=== PATIENT | female | born 1930 | race Caucasian/White ===

== ENCOUNTER 2016-10-12 10:51 | Emergency (ER) | payer MEDICARE ==
--- NOTE | 2016-10-12 12:44 | UC ---
Respiratory Complaint HPI - HPI Summary HPI Summary: Cough, chest congestion, sinus pressure, poor appetite, & dyspnea x2 days. Has significant cardiac history. Concern for bronchitis and or pneumonia per her daughter. Lives alone at home and not taking meds for multiple day [ End ] - History of Current Complaint Chief Complaint: UCGeneralIllness Stated Complaint: COUGH,SHAKY,SORE RIBS Time Seen by Provider: 10/12/16 12:25 Hx Obtained From: Patient, Family/Cotton Breeder ?: No Onset/Duration: Gradual Onset Timing: Constant Severity Initially: Moderate Severity Currently: Moderate Character: Cough: Nonproductive Associated Signs And Symptoms: Positive: URI, Nasal Congestion, Sinus Discomfort - Risk Factors Pulmonary Embolism Risk Factors: Negative Cardiac Risk Factors: Hypertension - Allergies/Home Medications Allergies/Adverse Reactions: Allergies Allergy/AdvReac Type Severity Reaction Status Date / Time No Known Allergies Allergy Verified 10/12/16 11:54 Home Medications: Home Medications Amiodarone TAB* [Cordarone TAB*] 200 mg PO DAILY 10/12/16 [History Confirmed 07/30] Atorvastatin* [Lipitor*] 40 mg PO DAILY 10/12/16 [History Confirmed 10/12/16] Calcium Carbonate [Calcium] 500 mg PO 10/12/16 [History] Digoxin TAB* [Lanoxin TAB*] 0.125 mg PO EVERY OTHER DAY 10/12/16 [History Confirmed 10/12/16] Famotidine TAB* [Pepcid 20 MG TAB*] 20 mg PO DAILY 10/12/16 [History Confirmed 10/12/16] Ferrous Gluconate TAB* [Fergon TAB*] 325 mg PO DAILY 10/12/16 [History Confirmed 10/12/16] Furosemide TAB* [Lasix TAB*] 40 mg PO DAILY 10/12/16 [History Confirmed 10/12/16 ] Levothyroxine TAB* [Synthroid TAB*] 25 mcg PO DAILY 10/12/16 [History Confirmed 10/12/16] Metoprolol Succinate XL TAB* [Toprol XL TAB*] 100 mg PO DAILY 10/12/16 [History Confirmed 10/12/16] Potassium Chlor TAB* [Klor Con ER TAB*] 20 meq PO DAILY 10/12/16 [History Confirmed 10/12/16] PMH/Surg Hx/FS Hx/Imm Hx Previously Healthy: Yes Endocrine History Of: Reports: Thyroid Disease Cardiovascular History Of: Reports: Cardiac Disorders - [place], surgery, cardioversion, Hypertension, Myocardial Infarction Respiratory History Of: Denies: COPD GI/ History Of: Reports: Gastroesophageal Reflux Neurological History Of: Denies: TIA Psychological History Of: Denies: Anxiety Cancer History Of: Denies: Lung Cancer - Surgical History Surgical History: Yes Surgery Procedure, Year, and Place: cardiac - Family History Known Family History: Positive: None - Social History Occupation: Retired Lives: Alone Alcohol Use: None Substance Use Type: None, Other Smoking Status (MU): Former Smoker Type: Cigarettes When Did the Patient Quit Smoking/Using Tobacco: 1992 Review of Systems Constitutional: Chills, Fatigue Skin: Negative Eyes: Negative ENT: Negative Respiratory: Shortness Of Breath, Cough Cardiovascular: Negative Gastrointestinal: Negative Genitourinary: Negative Motor: Negative Neurovascular: Negative Musculoskeletal: Negative Neurological: Negative Psychological: Negative All Other Systems Reviewed And Are Negative: Yes Physical Exam Triage Information Reviewed: Yes Appearance: Well-Appearing, No Pain Distress, Well-Nourished Vital Signs: Initial Vital Signs Temp 99.5 F 10/12/16 11:54 Pulse 61 10/12/16 11:54 Resp 16 10/12/16 11:54 BP 192/70 10/12/16 11:54 Pulse Ox 96 10/12/16 11:54 Vital Signs Reviewed: Yes Eye Exam: Normal ENT Exam: Normal Dental Exam: Normal Neck exam: Normal Neck: Positive: 1 Respiratory Exam: Normal Respiratory: Positive: Chest non-tender, No respiratory distress, No accessory muscle use, Rhonchi - b/l le Cardiovascular Exam: Normal Abdominal Exam: Normal Musculoskeletal Exam: Normal Neurological Exam: Normal Psychological Exam: Normal Skin Exam: Normal UC Diagnostic Evaluation - Laboratory O2 Sat by Pulse Oximetry: 96 Respiratory Course/Dx - Course Course Of Treatment: 86 year old female with significant cardiac history with 4 days of worsening fatigue, cough shortness of breath. Concern for respiratory compromise / pneumonia and will advise to go to ED for labs and further work up . Patient and daughter agree, they decline ambulance at this time . - Differential Dx/Diagnosis Differential Diagnosis/HQI/PQRI: Bronchitis, CHF, Pulmonary Edema, Laryngitis, Lower Resp Infection Provider Diagnoses: Pneumonia - Physician Notification/Consults Discussed Patient Care With: Nixon ED : Jessica Conley at 1:12 pm Discharge - Discharge Plan Condition: Fair Disposition: AGAINST MEDICAL ADVICE Referrals: Wilbert Jones MD [Primary Care Provider] - 3 Days
[2016-10-12 13:22] VITALS: BP 226/93
== END 2016-10-12 13:25 | disposition left against medical advice (07) ==
LOC: UCCORT 10:51
DX: J18.9 Pneumonia, unspecified organism (principal); I21.3 ST elevation (STEMI) myocardial infarction of unspecified site; I10 Essential (primary) hypertension; Z87.891 Personal history of nicotine dependence
CPT/HCPCS: 99213; G0463

== ENCOUNTER 2018-03-04 17:00 | Inpatient (IN) | payer MEDICARE ==
[2018-03-04] MEDS ORDERED: diPHENhydraMINE IV* 50 MG/ML 1 ml VIAL (BENADRYL) IM ONE (17:49)
[2018-03-04 18:14] LABS: ABS Basophils 0 10^3/ul (0-0.2); ABS Eosinophils 0.1 10^3/ul (0-0.6); ABS Lymphocytes 0.5 10^3/ul (1.0-4.8); ABS Monocytes 0.6 10^3/ul (0-0.8); ABS Neutrophils 5.9 10^3/ul (1.5-7.7); ABS Nucleated RBC 0 10^3/ul; Eosinophil % 1.2 % (0-6); Hematocrit 46 % (35-47); Lymphocyte % 7.2 % (25-47); Mean Corpuscular HGB Conc 33 g/dl (31-36); Mean Corpuscular Hemoglobin 32 pg (27-31); Mean Corpuscular Volume 98 fL (80-97); Mean Platelet Volume 8.7 um3 (7.4-10.4); Nucleated Red Blood Cells % 0.2; Platelet Count 217 10^3/ul (150-450); Red Blood Count 4.65 10^6/ul (4.00-5.40); Red Cell Distribution Width 20 % (10.5-15); White Blood Count 7.2 10^3/ul (3.5-10.8)
[2018-03-04 18:22] LABS: INR 1.02 (0.77-1.02)
--- NOTE | 2018-03-04 18:29 | ED ---
Syncope/Near Syncope - HPI Summary HPI Summary: The patient is an 87 y/o F presenting to [facility] with a chief complaint of fall a few days. She suffered a large bruise to her left cheek, and her left leg is tender. She additionally has back pain and cuts/bruises on her hands from falling. The pain is not aggravated or alleviated by anything. Per EMS report, the pt had tried to jump off the balcony at her alf and was being hostile towards staff. She has hx of COPD. - History Of Current Complaint Chief Complaint: EDGeneral Time Seen by Provider: 03/04/18 17:31 Hx Obtained From: Patient Onset/Duration: Sudden Onset, Lasting Days, Still Present Timing: Days Aggravating Factor(s): Nothing Alleviating Factor(s): Nothing Associated Signs And Symptoms: Other - tenderness in left leg, cuts and brusies to hands, large bruise to left cheek - Allergies/Home Medications Allergies/Adverse Reactions: Allergies Allergy/AdvReac Type Severity Reaction Status Date / Time codeine Allergy Unknown Verified 03/04/18 17:16 Reaction Details oxycodone Allergy Unknown Verified 03/04/18 17:16 Reaction Details ranolazine [From Ranexa] Allergy Unknown Verified 03/04/18 17:17 Reaction Details PMH/Surg Hx/FS Hx/Imm Hx Endocrine/Hematology History: Reports: Hx Thyroid Disease Cardiovascular History: Reports: Hx Hypertension, Hx Myocardial Infarction, Hx Pacemaker/ICD Respiratory History: Denies: Hx Chronic Obstructive Pulmonary Disease (COPD), Hx Lung Cancer Neurological History: Denies: Hx Transient Ischemic Attacks (TIA) Psychiatric History: Denies: Hx Anxiety - Surgical History Surgery Procedure, Year, and Place: cardiac-ICD left side - Immunization History Immunizations Up to Date: Unable to Obtain/Confirm Infectious Disease History: No Infectious Disease History: Denies: Traveled Outside the [place] in Last 30 Days - Family History Known Family History: Negative: Cardiac Disease, Hypertension, Diabetes - Social History Alcohol Use: None Substance Use Type: Reports: None Smoking Status (MU): Former Smoker Type: Cigarettes Review of Systems Positive: Other - tenderness in lower left leg, back pain Positive: Bruising - to left side of face, Other - cuts and bruises on hands All Other Systems Reviewed And Are Negative: Yes Physical Exam - Summary Physical Exam Summary: Constitutional: Well-developed, Well-nourished, Alert. (-) Distressed Skin: Warm, Dry HENT: Normocephalic; Atraumatic Eyes: Conjunctiva normal Neck: Musculoskeletal ROM normal neck. (-) JVD, (-) Stridor, (-) Tracheal deviation Cardio: Rhythm regular, rate normal, Heart sounds normal; Intact distal pulses; The pedal pulses are 2+ and symmetric. Radial pulses are 2+ and symmetric. (-) Murmur Pulmonary/Chest wall: Effort normal. (-) Respiratory distress, (-) Wheezes, (-) Rales, (+) Crackles in lower left field Abd: Soft, (-) epigastric tenderness, (-) Distension, (-) Guarding, (-) Rebound Musculoskeletal: (-) Edema Lymph: (-) Cervical adenopathy Neuro: Alert, Oriented x3 Psych: Mood and affect Normal Triage Information Reviewed: Yes Vital Signs On Initial Exam: Initial Vitals Temp Pulse Resp BP Pulse Ox 97.8 F 76 20 118/73 98 03/04/18 17:02 03/04/18 17:02 03/04/18 17:02 03/04/18 17:02 03/04/18 17:02 Vital Signs Reviewed: Yes Diagnostics - Vital Signs Vital Signs Temp Pulse Resp BP Pulse Ox 03/04/18 17:02 97.8 F 76 20 118/73 98 - Laboratory Lab Results: Lab Results 03/04/18 Range/Units 18:01 WBC 7.2 (3.5-10.8) 10^3/ul RBC 4.65 (4.00-5.40) 10^6/ul Hgb 15.0 (12.0-16.0) g/dl Hct 46 (35-47) % MCV 98 H (80-97) fL MCH 32 H (27-31) pg MCHC 33 (31-36) g/dl RDW 20 H (10.5-15) % Plt Count 217 (150-450) 10^3/ul MPV 8.7 (7.4-10.4) um3 Neut % (Auto) 82.5 (38-83) % Lymph % (Auto) 7.2 L (25-47) % [place] % (Auto) 8.7 H (0-7) % Eos % (Auto) 1.2 (0-6) % Baso % (Auto) 0.4 (0-2) % Absolute Neuts (auto) 5.9 (1.5-7.7) 10^3/ul Absolute Lymphs (auto) 0.5 L (1.0-4.8) 10^3/ul Absolute Monos (auto) 0.6 (0-0.8) 10^3/ul Absolute Eos (auto) 0.1 (0-0.6) 10^3/ul Absolute Basos (auto) 0 (0-0.2) 10^3/ul Absolute Nucleated RBC 0 10^3/ul Nucleated RBC % 0.2 Result Diagrams: 03/04/18 18:01 03/04/18 18:01 Lab Statement: Any lab studies that have been ordered have been reviewed, and results considered in the medical decision making process. - Radiology CXR Xray Interpretation: Positive (See Comments) - Left lower lung field, obscured by pacemaker. Cant rule out consolidation or pleural effusion. ED physician has reviewed this report. Radiology Interpretation Completed By: Radiologist L Ankle XR Xray Interpretation: Positive (See Comments) - Calcaneal spurring. ED physician has reviewed this report. Radiology Interpretation Completed By: Radiologist L Foot XR Xray Interpretation: No Acute Changes - No acute findings. ED physician has reviewed this report. Radiology Interpretation Completed By: Radiologist - EKG 18:07 Cardiac Rate: Other Rate - Afib. 81 BPM EKG Rhythm: Atrial Fibrillation EKG Interpretation: LBBB. No STEMI. Course/Dx Course Of Treatment: The patient is an 87 y/o F presenting to [facility] with a chief complaint of fall a few days. She suffered a large bruise to her left cheek, and her left leg is tender. She additionally has back pain and cuts/ bruises on her hands from falling. The pain is not aggravated or alleviated by anything. Per EMS report, the pt had tried to jump off the balcony at her alf and was being hostile towards staff. She has hx of COPD. Upon exam , pt has crackles in the lower left lung field. In the ED course, the pt was administered Benadryl. EKG shows LBBB and Afib at 81 BPM. Bloodwork is shows troponin of 0.04 and hyperkalemia. CXR reveals pacemaker obstructing image, can' t RO consolidation or pleural effusion. L Ankle XR shows calcaneal spurring. L Foot XR is negative. [facility] STATES PT CANNOT RETURN TO FACILITY. Patient will be diagnosed with community acquired pneumonia, hypoxia, agitation , hyperkalemia, dehydration, homelessness. Patient will be a sign-out to Dr. Wilder at shift change pending UA, Brain CT, Maxillofacial XR, Spine Cervical CT and awaiting disposition. Nursing reports pt is hypoxic; she has focal lung sounds. - Diagnoses Provider Diagnoses: Community acquired pneumonia, Hypoxia, Agitation, Hyperkalemia, Dehydration, Homelessness Discharge - Sign-Out/Discharge Documenting (check all that apply): Sign-Out Patient - Patient will be a sign- out to Dr. Wilder at shift change pending imaging results and dispo. Signing out patient TO: Kyle Wilder - Discharge Plan Referrals: Wilbert Jones MD [Primary Care Provider] - - Attestation Statements Document Initiated by Scribe: Yes Documenting Scribe: Nadege Thompson Provider For Whom Scribe is Documenting (Include Credential): Manoj Badillo MD Scribe Attestation: Nadege Conley, scribed for Manoj Badillo MD on 03/04/18 at 1906. Scribe Documentation Reviewed: Yes Provider Attestation: The documentation as recorded by the Nadege mccracken accurately reflects the service I personally performed and the decisions made by me, Manoj Badillo MD
[2018-03-04] MEDS ORDERED: cefTRIAXone(*) 1 GM in NS 0.9% 50 ML* 50 ML IVPB ONE (18:58)
[2018-03-04] MEDS ORDERED: Azithromycin IV(*) 500 MG in NS 0.9% 250 ML* 250 ML IVPB ONE (18:58)
[2018-03-04] MEDS ORDERED: NS 0.9% 500 ML* 500 ML IV ONE (18:58)
--- NOTE | 2018-03-04 19:11 | RAD ---
EXAM: CT Head Without Intravenous Contrast CLINICAL HISTORY: 87 years old, female; Injury or trauma; Injury Possible fall; Initial encounter; Blunt trauma (contusions or hematomas); Injury details: Left forehead region; Additional info: AMS, head injury. Brought in with ems and police because of aggressive behavior toward the staff in [facility], patient attempted to jump out of the window. TECHNIQUE: Axial computed tomography images of the head/brain without intravenous contrast. All CT scans at this facility use at least one of these dose optimization techniques: automated exposure control; mA and/or kV adjustment per patient size (includes targeted exams where dose is matched to clinical indication); or iterative reconstruction. COMPARISON: No relevant prior studies available. FINDINGS: Brain: Nonspecific hypoattenuation of the periventricular and deep subcortical white matter, most likely secondary to chronic small vessel ischemic change. No intracranial hemorrhage or extra-axial fluid collection. No evidence of mass effect or midline shift. Poe-white matter differentiation is normal. Ventricles: Prominence of the ventricles and sulci, most likely attributed to parenchymal volume loss. Bones/joints: Unremarkable. No acute fracture. Soft tissues: Small left frontal scalp hematoma. Sinuses: Unremarkable as visualized. No acute sinusitis. Mastoid air cells: Unremarkable as visualized. No mastoid effusion. IMPRESSION: No acute intracranial pathology.
--- NOTE | 2018-03-04 19:13 | RAD ---
EXAM: CT Cervical Spine Without Intravenous Contrast CLINICAL HISTORY: 87 years old, female; Injury or trauma; Injury Possible fall; Initial encounter; Abrasion; Additional info: AMS, head injury. Brought in with ems and police because of aggressive behavior toward the staff in [place], patient attempted to jump out of the window. TECHNIQUE: Axial computed tomography images of the cervical spine without intravenous contrast. All CT scans at this facility use at least one of these dose optimization techniques: automated exposure control; mA and/or kV adjustment per patient size (includes targeted exams where dose is matched to clinical indication); or iterative reconstruction. Coronal and sagittal reformatted images were created and reviewed. COMPARISON: No relevant prior studies available. FINDINGS: Vertebrae: Vertebral body heights are maintained. No locked or perched facets. Multilevel facet arthropathy. No acute fracture. The dens is intact. Atlantoaxial intervals are normal. Discs/spinal canal/neural foramina: Multilevel degenerative changes with intervertebral disc height loss and osteophyte formation. No spinal canal stenosis. Soft tissues: Unremarkable. Lung apices: Unremarkable as visualized. IMPRESSION: No acute cervical spine fracture.
--- NOTE | 2018-03-04 19:17 | RAD ---
EXAM: CT Maxillofacial Without Intravenous Contrast CLINICAL HISTORY: 87 years old, female; Injury or trauma; Injury Possible fall. ; Initial encounter; Abrasion; Cheek bone; Left; Additional info: Facial injuruy sp fall. Brought in with ems and police because of aggressive behavior toward the staff in alf, patient attempted to jump out of the window. TECHNIQUE: Axial computed tomography images of the face without intravenous contrast. All CT scans at this facility use at least one of these dose optimization techniques: automated exposure control; mA and/or kV adjustment per patient size (includes targeted exams where dose is matched to clinical indication); or iterative reconstruction. Coronal and sagittal reformatted images were created and reviewed. COMPARISON: No relevant prior studies available. FINDINGS: Bones/joints: No acute fracture. Soft tissues: Unremarkable. Orbits: Unremarkable. Sinuses: Mild mucosal thickening in the left maxillary sinus. No air-fluid levels. IMPRESSION: No acute fracture.
[2018-03-04] MEDS ORDERED: Haloperidol INJ IV/IM* 5 MG/ML AMP IV PRN (22:30)
[2018-03-04] MEDS ORDERED: Acetaminophen TAB* 325 MG PO PRN (22:30)
[2018-03-04] MEDS ORDERED: Ondansetron ODT TAB* 4 MG PO PRN (22:30)
[2018-03-04] MEDS ORDERED: Albuterol 2.5 MG/3 ML NEB.SOL* (0.083%) INH PRN (22:30)
[2018-03-04] MEDS ORDERED: Furosemide IV* 10 MG/ML 10 ML VIAL (100 MG) IV ONE (22:30)
--- NOTE | 2018-03-04 22:33 | HP ---
H&P (Free Text) History and Physical: PCP: Bryan Jones MD Date/Time: 03/04/2018 CC: confusion/aggression HPI: Mrs Braxton is an 87YO female HX CAD/CO/3vCABG, PAOD, HTN, HLD, hypothyroidism, LUE DVT & PE who was discharged from [facility] earlier today to [place] for inpatient rehab. She had been admitted to [facility] for 2 weeks with diagnoses of UTI, L foot cellulitis, & CHF. She reportedly initially did well upon arrival. However, after a few hours she suddenly began agitated and violent, started picking up and throwing chairs, punching other residents, etc. As such, EMS was called and she has been refused re-admission. Her daughters are present and stated they did not feel she was acting right prior to discharge that she was confused, but were assured she was ready. Currently, Mrs Braxton is lying in bed calm and without distress. She does not recall the earlier events. She has had similar episodes associated with UTI or other infections. Of note, she has a L forehead hematoma and L facial ecchymosis 2nd to a fall she sustained while at [facility]. PMedHx CAD/CO/3vCABG PAOD HTN HLD chronic BLE edema & erythema w/ intermittent weeping LUE DVT & PE hypothyroidism PSurgHx B carotid endarterectomies stent to RLE 3vCABG AICD placement appendectomy OU cataract extractions SocHx: quit smoking 1992 w/ >69 PYHX, no alcohol or recreational drugs; prior to admission to [facility] 2 weeks ago lived alone at home, very supportive family , does not drive; DNR/I code status FamHx: positive for CAD, HTN, HLD ROS: as above, otherwise reviewed and all were negative vitals: reviewed Constitutional: NAD, normally developed, frail, thin elderly white female HEENM: 3cm L forehead hematoma & L facial ecchymosis; sclera/conjunctiva: anicteric; hearing: clinically mildly decreased; oropharynx: clear, mucosa tacky Neck: soft tissue: non-tender; thyroid: normal Pulmonary: coarse upper airways B, fair aeration, no accessory muscle use CV: RR/RR, normal S1S2, no carotid bruit, moderate jugular venous distention, trace B DP/PT, 1+ BLE edema Abdominal: soft, non-distended, non-tender, no rebound/guarding/rigidity, normoactive bowel sounds, no hepatosplenomegaly or masses, no costovertebral angle tenderness Musculoskeletal: general: grossly intact, non-tender Integumental: BLE with chronic ischemic redness & skin atrophy Psychiatric orientation: AA&O to person only affect: calm mood: cooperative eye contact: poor content: unreliable memory: poor responses: mildly slowed insight: poor Testing: reviewed Impression: 87F presenting with confusion and aggression with findings consistent with 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 DIAGNOSIS & PLAN 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 : furosemide diuresis : daily weights : strict I&Os : obtain records from [facility] : supplemental oxygen : supportive care AMS/confusion & aggression : possibly related to transient hypoxia vs dementia (?vascular) vs occult infection : blood & urine CXs : given azithromycin & ceftriaxone in ED, hold further ABX for now : trend WBC & temperature curves Secondary CAD/CO/3vCABG : review meds once reconciled PAOD : review meds once reconciled HTN : review meds once reconciled HLD : review meds once reconciled chronic BLE edema & erythema w/ intermittent weeping : review meds once reconciled LUE DVT & PE : review meds once reconciled hypothyroidism : review meds once reconciled Admission Rational: inpatient for AoC HF not anticipated to be adequately resolved within 48h to allow for discharge DVTp: SCDs & heparin SQ Code Status: DNR/I HCP: mariel
[2018-03-05] MEDS: Omeprazole CAP* 20 MG PO SCH (06:01)
[2018-03-05 06:46] LABS: EGFR Non-African American 28.4 (>60)
--- NOTE | 2018-03-05 07:25 | RAD ---
INDICATION: Altered mental status. COMPARISON: Comparison is made with prior chest x-rays from February 16, [address] of the chest from February 18, 2018. TECHNIQUE: A portable view of the chest was obtained. FINDINGS: The patient is status post sternotomy. The heart is moderately enlarged and unchanged. There is a multilead transvenous pacemaker present. There is a 1 cm pulmonary nodule which projects over the right lung. This correlates with the nodule noted on the recent CT of the chest in the superior segment of the right lower lobe. There is mild prominence of the interstitial markings with more focal infiltrate present at the left lung base. IMPRESSION: 1. NEW SMALL LEFT BASILAR INFILTRATE. 2. RIGHT LUNG PULMONARY NODULE PREVIOUSLY DESCRIBED DESCRIBED ON THE CT OF THE CHEST FROM FEBRUARY 2018. THIS MAY BE SECONDARY TO INFLAMMATORY, INFECTIOUS OR NEOPLASTIC CAUSES. R2
--- NOTE | 2018-03-05 07:27 | RAD ---
INDICATION: Left ankle injury. TECHNIQUE: 3 views of the left ankle were obtained. FINDINGS: There is diffuse soft tissue swelling. The bones appear osteopenic. No fracture is seen. There are prominent vascular calcifications present. IMPRESSION: SOFT TISSUE SWELLING, NO FRACTURE IS SEEN. IF THE PATIENT'S SYMPTOMS PERSIST RECOMMEND FOLLOW-UP IMAGING. R0
--- NOTE | 2018-03-05 07:29 | RAD ---
INDICATION: Left foot injury. TECHNIQUE: 3 views of the left foot were obtained. FINDINGS: There is diffuse soft tissue swelling. The bones appear osteopenic. No fracture is seen. Joint spaces appear maintained. IMPRESSION: NO EVIDENCE FOR FRACTURE, IF THE PATIENT'S SYMPTOMS PERSIST RECOMMEND FOLLOW-UP IMAGING. R0
--- NOTE | 2018-03-05 07:31 | RAD ---
HISTORY: FALL PAIN COMPARISONS: None VIEWS: 3 , Frontal and lateral views of the left foreleg FINDINGS: BONE DENSITY: There is diffuse osteopenia. BONES: There is no displaced fracture. JOINTS: There is no arthropathy. ALIGNMENT: There is no dislocation. SOFT TISSUES: There is peripheral arterial calcification. OTHER FINDINGS: None. IMPRESSION: OSTEOPENIA. PERIPHERAL ARTERIAL DISEASE. NO ACUTE OSSEOUS INJURY. IF SYMPTOMS PERSIST, RECOMMEND REPEAT IMAGING. R1
--- NOTE | 2018-03-05 07:53 | PN ---
Subjective Date of Service: 03/05/18 Interval History: Patient is very agitated, confused yelling and hitting staff. She threw her walker multiple times at staff. She is ambulating in the hallways with her walker with a fairly steady gait and will not follow staff to redirect her - she becomes very agitated with any suggestions. She was given Haldol this morning with some success after she tried to "choke an aide" and was throwing her walker. She calmed down a little this afternoon and at times has been able to be redirected at times. Staff has been walking her in the hallways frequently. She continues to refuse treatments such as vital signs or medications. I discussed the patients care and treatment plan with her daughter who is the HCP. She confirms that her mother is a DNR/DNI. The daughter understands that she a refusing treatment and medications. She reports that she has acted like this prior in the setting of acute illness specifically UTI's. I explained the staff has not been able to obtain a urine sample d/t noncompliance and delirium. The plan will be to continues IV abx and give IM and PO, continue to offer medications, try to obtain urinalysis if we can gather a clean cath but will not try to obtain sample by straight cath as this will be distressing to the patient and if she refuses it is ok. The daughter wants treatment for potential infection if she will allow but understands that she has been declining over the past year and has had multiple hospitalizations - overall goal is for her comfort at this stage in her life. The patients lactic is also elevated which the daughter understands that her mother will not allow for IVFs or IV at this time. Pt would not allow me to assess her with an exam today. Objective Active Medications: Acetaminophen (Tylenol Tab*) 650 mg PO Q6H PRN PRN Reason: FEVER/PAIN Albuterol (Ventolin 2.5 Mg/3 Ml Neb.Aliyah*) 2.5 mg INH Q2H PRN PRN Reason: SOB/WHEEZING Docusate Sodium (Colace Cap*) 200 mg PO BID LIZZ Furosemide (Lasix Iv*) 20 mg IV 0800,1200 LIZZ Guaifenesin (Mucinex*) 1,200 mg PO BID LIZZ Haloperidol Lactate (Haldol Inj Iv/Im*) 2.5 mg IV ONCE PRN PRN Reason: AGITATION Melatonin (Melatonin) 3 mg PO BEDTIME PRN; Protocol PRN Reason: Sleep Omeprazole (Prilosec Cap*) 20 mg PO DAILY@0600 LIZZ Last Admin: 03/05/18 06:01 Dose: 20 mg Ondansetron HCl (Zofran Odt Tab*) 4 mg PO Q6H PRN PRN Reason: n/v Oxygen Devices in Use Now: None Appearance: alert agitated confused Eyes: No Scleral Icterus, PERRLA Skin: - Neurological: - - alert Nutrition: Taking PO's Result Diagrams: 03/04/18 18:01 03/05/18 05:52 Additional Lab and Data: Lab Results 03/04/18 Range/Units 18:01 WBC 7.2 (3.5-10.8) 10^3/ul RBC 4.65 (4.00-5.40) 10^6/ul Hgb 15.0 (12.0-16.0) g/dl Hct 46 (35-47) % MCV 98 H (80-97) fL MCH 32 H (27-31) pg MCHC 33 (31-36) g/dl RDW 20 H (10.5-15) % Plt Count 217 (150-450) 10^3/ul MPV 8.7 (7.4-10.4) um3 Neut % (Auto) 82.5 (38-83) % Lymph % (Auto) 7.2 L (25-47) % Hardy % (Auto) 8.7 H (0-7) % Eos % (Auto) 1.2 (0-6) % Baso % (Auto) 0.4 (0-2) % Absolute Neuts (auto) 5.9 (1.5-7.7) 10^3/ul Absolute Lymphs (auto) 0.5 L (1.0-4.8) 10^3/ul Absolute Monos (auto) 0.6 (0-0.8) 10^3/ul Absolute Eos (auto) 0.1 (0-0.6) 10^3/ul Absolute Basos (auto) 0 (0-0.2) 10^3/ul Absolute Nucleated RBC 0 10^3/ul Nucleated RBC % 0.2 Microbiology and Other Data: Microbiology 03/05/18 00:18 Nasal Screen MRSA (PCR) - Final Nasal Mrsa Not Detected Assess/Plan/Problems-Billing Assessment: 87 yo female with a PMH of dementia, CAD/[place]/3vCABG, HTN, HLD, hypothyroidism, LUE DVT & PE, PAOD, chronic BLE edema & erythema with intermittent weeping who presented to [facility] on 03/04 after she was discharge from [facility] for 2 weeks with UTI, L foot cellulitis & CHF to [place] where she became aggressive and agitated throwing chairs, punching residents. 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 Possible PNA ? small infiltrate noted on chest xray - per daughter has been coughing - unable to obtain urinalysis - very aggressive and agitated - was given one time dose Haldol this morning, Geodon this afternoon with some success. -Start Seroquel 12.5 mg BID - continue IV abx (2) Acute on chronic diastolic CHF (congestive heart failure) Comment: - Possible mild CHF but appears to be oxygenating well on RA and does not appear to be fluid overloaded. BNP > 3000 on admission - Switch to lasix 20 mg daily (home dose is 40 mg po but most likely wont take po) (3) Acute renal failure Comment: - Do not know pts baseline, per daughter has renal disease at baseline. awaiting records from [place] (4) Hx of coronary artery disease Comment: - elevated troponin - suspect demand ischemia - per daughter her hr manager's recommend medical management only - continue BB (5) History of deep venous thrombosis or pulmonary embolus Comment: do not know what her hx is without records? trying to obtain med list. (6) PVD (peripheral vascular disease) Comment: - 2 stents placed in right leg in December at [facility] - Do not feel that we have the right medication list ?? I have asked the nursing staff to obtain records from [place] or [facility] (7) DNR (do not resuscitate) (8) DVT prophylaxis Status and Disposition: inpatient.
[2018-03-05] MEDS ORDERED: Furosemide IV* 10 MG/ML 10 ML VIAL (100 MG) IV SCH (08:00)
[2018-03-05] MEDS ORDERED: Haloperidol INJ IV/IM* 5 MG/ML AMP IM ONE (08:40)
[2018-03-05] MEDS ORDERED: Amiodarone TAB* 200 MG PO SCH (09:00)
[2018-03-05] MEDS ORDERED: Furosemide IV* 10 MG/ML 2 ML VIAL (20 MG) IV SCH (12:00)
[2018-03-05] MEDS ORDERED: QUEtiapine TAB* 25 MG PO ONE (12:01)
[2018-03-05] MEDS ORDERED: Ziprasidone IM INJ* 20 MG/ML VIAL IM ONE (12:02)
[2018-03-05] MEDS: Digoxin TAB* 0.125 MG PO SCH (12:40)
[2018-03-05] MEDS: Docusate CAP* 100 MG PO SCH ×2 (12:40→19:43)
[2018-03-05] MEDS: Atorvastatin* 40 MG TAB PO SCH (12:40)
[2018-03-05] MEDS: Famotidine TAB* 20 MG PO SCH (12:40)
[2018-03-05] MEDS: guaiFENesin ER TAB 600 MG PO SCH ×2 (12:41→19:43)
[2018-03-05] MEDS: Levothyroxine TAB* 25 MCG TAB PO SCH (12:41)
[2018-03-05] MEDS: Ferrous Gluconate TAB* 324 MG TAB PO SCH (12:41)
[2018-03-05] MEDS: cefTRIAXone VIAL(*) 1,000 MG VIAL IM SCH (19:03)
[2018-03-05] MEDS: Azithromycin TAB* 250 MG PO SCH (19:43)
[2018-03-05] MEDS: QUEtiapine TAB* 25 MG PO SCH (19:43)
[2018-03-05] MEDS: Haloperidol INJ IV/IM* 5 MG/ML AMP IM PRN (19:58)
[2018-03-05] MEDS: Enoxaparin(*) 60 MG/0.6 ML SYR SUBCUT SCH (20:52)
[2018-03-06 01:09] LABS: Urine Appearance Clear; Urine Blood 1+ (Negative); Urine Color Yellow; Urine Ketones Negative (Negative); Urine Protein 1+(30 mg/dL) (Negative); Urine Red Blood Cell 2+(6-10/hpf) (Absent); Urine Specific Gravity 1.016 (1.010-1.030); Urine Urobilinogen Negative (Negative); Urine White Blood Cell 3+(>20/hpf) (Absent)
[2018-03-06] MEDS: Omeprazole CAP* 20 MG PO SCH (04:41)
[2018-03-06] MEDS ORDERED: Furosemide IV* 10 MG/ML 2 ML VIAL (20 MG) IV ONE (09:00)
[2018-03-06] MEDS ORDERED: Metoprolol Succinate XL TAB* 100 MG PO SCH (09:00)
[2018-03-06] MEDS ORDERED: Furosemide TAB* 40 MG PO SCH (09:00)
--- NOTE | 2018-03-06 09:47 | PN ---
Subjective Date of Service: 03/06/18 Interval History: Ms. Braxton remains very confused this morning, but she is more easily redirected than she has been previously and is less agitated. More cooperative with care, however, she continues to require a safety monitor. Family History: Unchanged from Admission Social History: Unchanged from Admission Past Medical History: Unchanged from Admission Objective Active Medications: Acetaminophen (Tylenol Tab*) 650 mg PO Q6H PRN PRN Reason: FEVER/PAIN Albuterol (Ventolin 2.5 Mg/3 Ml Neb.Aliyah*) 2.5 mg INH Q2H PRN PRN Reason: SOB/WHEEZING Atorvastatin Calcium (Lipitor*) 40 mg PO DAILY LIZZ Azithromycin (Zithromax Tab*) 250 mg PO DAILY [facility] Ceftriaxone Sodium (Rocephin Vial(*)) 1,000 mg IM Q24H LIZZ Digoxin (Lanoxin Tab*) 0.125 mg PO EVERY OTHER DAY [facility] Docusate Sodium (Colace Cap*) 200 mg PO BID [facility] Enoxaparin Sodium (Lovenox(*)) 60 mg SUBCUT Q24H [facility] Famotidine (Pepcid Tab*) 20 mg PO DAILY [facility] Ferrous Gluconate (Fergon Tab*) 325 mg PO DAILY [facility] Guaifenesin (Mucinex*) 1,200 mg PO BID [facility] Haloperidol Lactate (Haldol Inj Iv/Im*) 2.5 mg IV ONCE PRN PRN Reason: AGITATION Haloperidol Lactate (Haldol Inj Iv/Im*) 2.5 mg IM Q6H PRN PRN Reason: AGITATION Levothyroxine Sodium (Synthroid Tab*) 25 mcg PO DAILY [facility] Melatonin (Melatonin) 3 mg PO BEDTIME PRN; Protocol PRN Reason: Sleep Metoprolol Succinate (Toprol Xl Tab*) 50 mg PO DAILY [facility] Omeprazole (Prilosec Cap*) 20 mg PO DAILY@0600 [facility] Ondansetron HCl (Zofran Odt Tab*) 4 mg PO Q6H PRN PRN Reason: n/v Quetiapine Fumarate (Seroquel Tab*) 12.5 mg PO BID [facility] Vital Signs - 8 hr 03/06/18 04:38 Temperature 98.0 F Pulse Rate 83 Respiratory 18 Rate Blood Pressure 132/63 (mmHg) O2 Sat by Pulse 100 Oximetry Oxygen Devices in Use Now: None Eyes: No Scleral Icterus, PERRLA Ears/Nose/Mouth/Throat: Mucous Membranes Moist Neck: NL Appearance and Movements; NL JVP Respiratory: Symmetrical Chest Expansion and Respiratory Effort, Clear to Auscultation Cardiovascular: NL Sounds; No Murmurs; No JVD, RRR, No Edema Abdominal: NL Sounds; No Tenderness; No Distention Extremities: No Edema Neurological: - - Alert but confused, easily agitated Lines/Tubes/Other Access: Clean, Dry and Intact Peripheral IV Nutrition: Taking PO's Result Diagrams: 03/04/18 18:01 03/05/18 05:52 Microbiology and Other Data: Assess/Plan/Problems-Billing Assessment: 87 yo female with a PMH of dementia, CAD/[place]/3vCABG, HTN, HLD, hypothyroidism, LUE DVT & PE, PAOD, chronic BLE edema & erythema with intermittent weeping who presented to [facility] on 03/04 after she was discharged from [facility] for 2 weeks with UTI, L foot cellulitis & CHF to [place] where she became aggressive and agitated throwing chairs, punching residents. 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 - Patient Problems (1) Acute on chronic diastolic CHF (congestive heart failure) Current Visit: Yes Status: Acute Code(s): I50.33 - ACUTE ON CHRONIC DIASTOLIC (CONGESTIVE) HEART FAILURE SNOMED Code(s): 621753973 Comment: - Possible mild CHF but appears to be oxygenating well on RA and does not appear to be fluid overloaded. BNP > 3000 on admission - Switch to lasix 20 mg daily (home dose is 40 mg po but most likely wont take po) - Likely cause of AMS (2) Confusion Current Visit: Yes Status: Acute Code(s): R41.0 - DISORIENTATION, UNSPECIFIED SNOMED Code(s): 411103920 Comment: - Suspect delirium 2/2 CHF with dementia at baseline - Improving aggression and agitation - Continue Seroquel 12.5 mg BID (3) UTI (urinary tract infection) Current Visit: Yes Status: Acute Comment: - UA from overnight + for WBC and leukocyte esterase - Continue ceftriaxone (4) Acute renal failure Current Visit: Yes Status: Acute Comment: - Do not know pts baseline, per daughter has renal disease at baseline - Unclear based on records from [place] (5) Hx of coronary artery disease Current Visit: Yes Status: Chronic Code(s): Z86.79 - PERSONAL HISTORY OF OTHER DISEASES OF THE CIRCULATORY SYSTEM SNOMED Code(s): 364369312 Comment: - Elevated troponin - suspect demand ischemia 2/2 CHF - Per daughter her winding lathe operator recommends medical management only - Continue BB (6) PVD (peripheral vascular disease) Current Visit: Yes Status: Acute Code(s): I73.9 - PERIPHERAL VASCULAR DISEASE, UNSPECIFIED SNOMED Code(s): 750201829 Comment: - 2 stents placed in right leg in December at [facility] (7) Hypothyroidism Current Visit: Yes Status: Acute Code(s): E03.9 - HYPOTHYROIDISM, UNSPECIFIED SNOMED Code(s): 71893288 Comment: - Continue home dose of Synthroid (8) History of deep venous thrombosis or pulmonary embolus Current Visit: Yes Status: Acute Code(s): IYN3507 - SNOMED Code(s): 228982677 Comment: - Per records from [place], hx of RUE DVT - Continue Lovenox (9) DVT prophylaxis Current Visit: Yes Status: Acute Code(s): HPB5003 - SNOMED Code(s): 161355355 Comment: - Lovenox (10) DNR (do not resuscitate) Current Visit: Yes Status: Acute Status and Disposition: Inpatient. Anticipate d/c to SNF when medically stable.
[2018-03-06] MEDS: Metoprolol Succinate XL TAB* 50 MG PO SCH (10:27)
[2018-03-06] MEDS: QUEtiapine TAB* 25 MG PO SCH ×2 (10:29→23:26)
[2018-03-06] MEDS: Levothyroxine TAB* 25 MCG TAB PO SCH (10:30)
[2018-03-06] MEDS: Atorvastatin* 40 MG TAB PO SCH (10:31)
[2018-03-06] MEDS: Docusate CAP* 100 MG PO SCH ×2 (10:33→23:26)
[2018-03-06] MEDS: Azithromycin TAB* 250 MG PO SCH (10:35)
[2018-03-06] MEDS: Famotidine TAB* 20 MG PO SCH (10:35)
[2018-03-06] MEDS: guaiFENesin ER TAB 600 MG PO SCH ×2 (10:36→23:26)
[2018-03-06] MEDS: Ferrous Gluconate TAB* 324 MG TAB PO SCH (10:37)
[2018-03-06] MEDS: cefTRIAXone VIAL(*) 1,000 MG VIAL IM SCH (19:25)
[2018-03-06] MEDS: Enoxaparin(*) 60 MG/0.6 ML SYR SUBCUT SCH (19:26)
[2018-03-07 05:12] LABS: ABS Basophils 0 10^3/ul (0-0.2); ABS Eosinophils 0.1 10^3/ul (0-0.6); ABS Lymphocytes 0.7 10^3/ul (1.0-4.8); ABS Monocytes 0.6 10^3/ul (0-0.8); ABS Nucleated RBC 0 10^3/ul; Eosinophil % 1.8 % (0-6); Hematocrit 44 % (35-47); Hemoglobin 14.3 g/dl (12.0-16.0); Lymphocyte % 10.5 % (25-47); Mean Corpuscular HGB Conc 32 g/dl (31-36); Mean Corpuscular Hemoglobin 32 pg (27-31); Mean Corpuscular Volume 99 fL (80-97); Mean Platelet Volume 8.5 um3 (7.4-10.4); Nucleated Red Blood Cells % 0.5; Platelet Count 217 10^3/ul (150-450); Red Cell Distribution Width 20 % (10.5-15); White Blood Count 6.3 10^3/ul (3.5-10.8)
[2018-03-07 05:28] LABS: EGFR Non-African American 22.9 (>60)
[2018-03-07] MEDS: Omeprazole CAP* 20 MG PO SCH (05:48)
--- NOTE | 2018-03-07 08:59 | PN ---
Subjective Date of Service: 03/07/18 Interval History: Ms. Thao remains confused, mentation about the same as yesterday per nursing. She is quite pleasant upon examination. Not able to provide any relevant subjective data. She is able to be redirected, but continues to be easily agitated per nursing staff. Continues to require a safety monitor. Family History: Unchanged from Admission Social History: Unchanged from Admission Past Medical History: Unchanged from Admission Objective Active Medications: Acetaminophen (Tylenol Tab*) 650 mg PO Q6H PRN Albuterol (Ventolin 2.5 Mg/3 Ml Neb.Aliyah*) 2.5 mg INH Q2H PRN Atorvastatin Calcium (Lipitor*) 40 mg PO DAILY LIZZ Azithromycin (Zithromax Tab*) 250 mg PO DAILY [facility] Ceftriaxone Sodium (Rocephin Vial(*)) 1,000 mg IVPB Q24H LIZZ Digoxin (Lanoxin Tab*) 0.125 mg PO EVERY OTHER DAY [facility] Docusate Sodium (Colace Cap*) 200 mg PO BID [facility] Enoxaparin Sodium (Lovenox(*)) 60 mg SUBCUT Q24H LIZZ Famotidine (Pepcid Tab*) 20 mg PO DAILY [facility] Ferrous Gluconate (Fergon Tab*) 325 mg PO DAILY [facility] Guaifenesin (Mucinex*) 1,200 mg PO BID [facility] Haloperidol Lactate (Haldol Inj Iv/Im*) 2.5 mg IV ONCE PRN Haloperidol Lactate (Haldol Inj Iv/Im*) 2.5 mg IM Q6H PRN Levothyroxine Sodium (Synthroid Tab*) 25 mcg PO DAILY [facility] Melatonin (Melatonin) 3 mg PO BEDTIME PRN; Protocol Metoprolol Succinate (Toprol Xl Tab*) 50 mg PO DAILY [facility] Omeprazole (Prilosec Cap*) 20 mg PO DAILY@0600 [facility] Ondansetron HCl (Zofran Odt Tab*) 4 mg PO Q6H PRN Quetiapine Fumarate (Seroquel Tab*) 12.5 mg PO BID [facility] Vital Signs - 8 hr 03/07/18 03/07/18 06:24 07:10 Temperature 98.1 F 97.7 F Pulse Rate 89 87 Respiratory 16 Rate Blood Pressure 140/88 136/75 (mmHg) O2 Sat by Pulse 94 100 Oximetry Oxygen Devices in Use Now: None Appearance: Elderly female laying in bed in NAD Eyes: No Scleral Icterus, PERRLA Ears/Nose/Mouth/Throat: Mucous Membranes Moist Neck: NL Appearance and Movements; NL JVP, Trachea Midline Respiratory: Symmetrical Chest Expansion and Respiratory Effort, Clear to Auscultation, - - Fine crackles to LL lobe, otherwise clear throughout Cardiovascular: NL Sounds; No Murmurs; No JVD, RRR, No Edema Abdominal: NL Sounds; No Tenderness; No Distention Extremities: No Edema Skin: - - Brown discoloration to BLE Neurological: - - Alert, oriented to self Lines/Tubes/Other Access: Clean, Dry and Intact Peripheral IV Nutrition: Taking PO's Result Diagrams: 03/07/18 04:57 03/07/18 04:57 Assess/Plan/Problems-Billing Assessment: 87 yo female with a PMH of dementia, 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 - Patient Problems (1) Acute on chronic diastolic CHF (congestive heart failure) Current Visit: Yes Status: Acute Priority: High Code(s): I50.33 - ACUTE ON CHRONIC DIASTOLIC (CONGESTIVE) HEART FAILURE SNOMED Code(s): 415388407 Comment: - Mild CHF but oxygenating well on RA and does not appear to be fluid overloaded - BNP > 3000 on admission, now down to 2500 - Switch to home dose of lasix (she is now taking PO meds) - Likely cause of AMS (2) Confusion Current Visit: Yes Status: Acute Priority: High Code(s): R41.0 - DISORIENTATION, UNSPECIFIED SNOMED Code(s): 685937944 Comment: - Suspect delirium 2/2 CHF with dementia at baseline - Improving aggression and agitation - Continue Seroquel 12.5 mg BID (3) UTI (urinary tract infection) Current Visit: Yes Status: Acute Priority: High Comment: - UA + for WBC and leukocyte esterase, culture shows no growth - Continue ceftriaxone (4) Acute renal failure Current Visit: Yes Status: Acute Priority: High Comment: - Do not know pts baseline, per daughter has renal disease at baseline - Unclear based on records from [place] (5) Hx of coronary artery disease Current Visit: Yes Status: Chronic Priority: High Code(s): Z86.79 - PERSONAL HISTORY OF OTHER DISEASES OF THE CIRCULATORY SYSTEM SNOMED Code(s): 363902133 Comment: - Elevated troponin - suspect demand ischemia 2/2 CHF - Per daughter her winder fixer recommends medical management only - Continue metoprolol (6) PVD (peripheral vascular disease) Current Visit: Yes Status: Acute Priority: High Code(s): I73.9 - PERIPHERAL VASCULAR DISEASE, UNSPECIFIED SNOMED Code(s): 939834750 Comment: - 2 stents placed in right leg in December at [facility] (7) Hypothyroidism Current Visit: Yes Status: Acute Priority: Medium Code(s): E03.9 - HYPOTHYROIDISM, UNSPECIFIED SNOMED Code(s): 78691002 Comment: - Continue home dose of Synthroid (8) History of deep venous thrombosis or pulmonary embolus Current Visit: Yes Status: Chronic Priority: Medium Code(s): VUZ5207 - SNOMED Code(s): 892952174 Comment: - Per records from [place], hx of RUE DVT - Continue Lovenox (9) DVT prophylaxis Current Visit: Yes Status: Acute Priority: High Code(s): PPY6370 - SNOMED Code(s): 522060071 Comment: - Lovenox (10) DNR (do not resuscitate) Current Visit: Yes Status: Chronic Status and Disposition: Inpatient. Anticipate d/c to [facility] when medically stable. Attending: Parmjit Bray
[2018-03-07] MEDS: Metoprolol Succinate XL TAB* 50 MG PO SCH (09:48)
[2018-03-07] MEDS: QUEtiapine TAB* 25 MG PO SCH ×2 (09:49→21:14)
[2018-03-07] MEDS: Azithromycin TAB* 250 MG PO SCH (09:49)
[2018-03-07] MEDS: Levothyroxine TAB* 25 MCG TAB PO SCH (09:51)
[2018-03-07] MEDS: guaiFENesin ER TAB 600 MG PO SCH ×2 (09:51→21:14)
[2018-03-07] MEDS: Digoxin TAB* 0.125 MG PO SCH (09:52)
[2018-03-07] MEDS: Docusate CAP* 100 MG PO SCH ×2 (09:54→21:14)
[2018-03-07] MEDS: Famotidine TAB* 20 MG PO SCH (09:54)
[2018-03-07] MEDS: Atorvastatin* 40 MG TAB PO SCH (09:54)
[2018-03-07] MEDS: Ferrous Gluconate TAB* 324 MG TAB PO SCH (09:54)
[2018-03-07] MEDS: Furosemide TAB* 40 MG PO SCH (12:03)
[2018-03-07] MEDS: cefTRIAXone* 1 GM in NS 0.9% 50 ML BAG IVPB SCH (17:46)
[2018-03-07] MEDS ORDERED: cefTRIAXone VIAL(*) 1,000 MG VIAL IVPB SCH (18:00)
[2018-03-07] MEDS: Enoxaparin(*) 60 MG/0.6 ML SYR SUBCUT SCH (21:21)
[2018-03-08] MEDS: Omeprazole CAP* 20 MG PO SCH (05:38)
[2018-03-08 07:14] LABS: EGFR Non-African American 24.8 (>60)
[2018-03-08] MEDS: Azithromycin TAB* 250 MG PO SCH (08:16)
[2018-03-08] MEDS: Metoprolol Succinate XL TAB* 50 MG PO SCH (08:16)
[2018-03-08] MEDS: QUEtiapine TAB* 25 MG PO SCH ×2 (08:16→21:03)
[2018-03-08] MEDS: guaiFENesin ER TAB 600 MG PO SCH ×2 (08:17→21:03)
[2018-03-08] MEDS: Furosemide TAB* 40 MG PO SCH (08:17)
[2018-03-08] MEDS: Ferrous Gluconate TAB* 324 MG TAB PO SCH (08:20)
[2018-03-08] MEDS: Famotidine TAB* 20 MG PO SCH (08:20)
[2018-03-08] MEDS: Docusate CAP* 100 MG PO SCH ×2 (08:20→21:03)
[2018-03-08] MEDS: Atorvastatin* 40 MG TAB PO SCH (08:20)
--- NOTE | 2018-03-08 12:54 | PN ---
Subjective Date of Service: 03/08/18 Interval History: Patient cannot give history. States she lives here. Denies SOB. LEFT foot painful. Family History: Unchanged from Admission Social History: Unchanged from Admission Past Medical History: Unchanged from Admission Objective Active Medications: Acetaminophen (Tylenol Tab*) 650 mg PO Q6H PRN PRN Reason: FEVER/PAIN Albuterol (Ventolin 2.5 Mg/3 Ml Neb.Aliyah*) 2.5 mg INH Q2H PRN PRN Reason: SOB/WHEEZING Atorvastatin Calcium (Lipitor*) 40 mg PO DAILY [facility] Last Admin: 03/08/18 08:20 Dose: 40 mg Digoxin (Lanoxin Tab*) 0.125 mg PO EVERY OTHER DAY [facility] Last Admin: 03/07/18 09:52 Dose: 0.125 mg Docusate Sodium (Colace Cap*) 200 mg PO BID [facility] Last Admin: 03/08/18 08:20 Dose: 200 mg Enoxaparin Sodium (Lovenox(*)) 60 mg SUBCUT BID [facility] Famotidine (Pepcid Tab*) 20 mg PO DAILY [facility] Last Admin: 03/08/18 08:20 Dose: 20 mg Ferrous Gluconate (Fergon Tab*) 325 mg PO DAILY [facility] Last Admin: 03/08/18 08:20 Dose: 324 mg Furosemide (Lasix Tab*) 40 mg PO DAILY [facility] Last Admin: 03/08/18 08:17 Dose: 40 mg Guaifenesin (Mucinex*) 1,200 mg PO BID [facility] Last Admin: 03/08/18 08:17 Dose: 1,200 mg Haloperidol Lactate (Haldol Inj Iv/Im*) 2.5 mg IM Q6H PRN PRN Reason: AGITATION Last Admin: 03/05/18 19:58 Dose: 2.5 mg Ceftriaxone Sodium 1 gm/ (Sodium Chloride) 50 mls @ 200 mls/hr IVPB Q24H [facility] Last Admin: 03/07/18 17:46 Dose: 200 mls/hr Levothyroxine Sodium (Synthroid Tab*) 25 mcg PO DAILY [facility] Last Admin: 03/07/18 09:51 Dose: 25 mcg Melatonin (Melatonin) 3 mg PO BEDTIME PRN; Protocol PRN Reason: Sleep Metoprolol Succinate (Toprol Xl Tab*) 50 mg PO DAILY [facility] Last Admin: 03/08/18 08:16 Dose: 50 mg Omeprazole (Prilosec Cap*) 20 mg PO DAILY@0600 [facility] Last Admin: 03/08/18 05:38 Dose: 20 mg Ondansetron HCl (Zofran Odt Tab*) 4 mg PO Q6H PRN PRN Reason: n/v Quetiapine Fumarate (Seroquel Tab*) 12.5 mg PO BID [facility] Last Admin: 03/08/18 08:16 Dose: 12.5 mg Vital Signs - 8 hr 03/08/18 03/08/18 07:46 08:00 Temperature 36.9 C Pulse Rate 81 Respiratory 16 16 Rate Blood Pressure 126/94 (mmHg) O2 Sat by Pulse 93 Oximetry Oxygen Devices in Use Now: None Appearance: no acute distress Ears/Nose/Mouth/Throat: Clear Oropharnyx Neck: No Thyroid Enlargement, Masses Respiratory: Clear to Auscultation, Clear to Percussion, - - rales LT base Cardiovascular: NL Sounds; No Murmurs; No JVD, No Edema, - - irregular Abdominal: NL Sounds; No Tenderness; No Distention Extremities: No Edema, - - dependent rubor Skin: - - ulceration LT 3-4-5th toes distally Neurological: - - cooperative Lines/Tubes/Other Access: Clean, Dry and Intact Peripheral IV Nutrition: Taking PO's Result Diagrams: 03/07/18 04:57 03/08/18 05:37 Additional Lab and Data: Laboratory Tests 03/07/18 03/07/18 03/08/18 04:57 04:57 05:37 Magnesium 2.8 H Troponin I 0.07 H* 0.11 H* B-Natriuretic Peptide 2574 H 03/08/18 08:04 Magnesium Troponin I 0.09 H* B-Natriuretic Peptide Microbiology and Other Data: Assess/Plan/Problems-Billing Assessment: 87 yo female with a PMH of dementia, CAD/[place]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 on 03/04 after she was discharged from [facility] for 2 weeks with UTI, L foot cellulitis & CHF to [place] where she became aggressive and agitated throwing chairs, punching residents. 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 - Patient Problems (1) Acute on chronic diastolic CHF (congestive heart failure) Current Visit: Yes Status: Acute Priority: High Code(s): I50.33 - ACUTE ON CHRONIC DIASTOLIC (CONGESTIVE) HEART FAILURE SNOMED Code(s): 746329339 Comment: - continue I/O monitoring - CHF now compensated - BNP > 3000 on admission, now down to 2500 - now on home dose of lasix (2) PVD (peripheral vascular disease) Current Visit: Yes Status: Acute Priority: High Code(s): I73.9 - PERIPHERAL VASCULAR DISEASE, UNSPECIFIED SNOMED Code(s): 924873253 Comment: - wounds on LT foot need wound care (local) (3) Confusion Current Visit: Yes Status: Acute Priority: High Code(s): R41.0 - DISORIENTATION, UNSPECIFIED SNOMED Code(s): 340027323 Comment: - Suspect delirium 2/2 CHF with dementia at baseline - Improved aggression and agitation - Continue Seroquel 12.5 mg BID (4) History of deep venous thrombosis or pulmonary embolus Current Visit: Yes Status: Chronic Priority: Medium Code(s): QLR8484 - SNOMED Code(s): 787469354 Comment: - also has A-fib - Per records from [facility] of RUE DVT - Continue Lovenox (5) Pneumonia Current Visit: Yes Status: Acute Priority: Medium Code(s): J18.9 - PNEUMONIA, UNSPECIFIED ORGANISM SNOMED Code(s): 790228888 Comment: - on Ceftriaxone for ?UTI - also will cover community acquired pneumonia - since improving, will not cover for HAP Status and Disposition: Inpatient. Was not offered bed at [facility] to return, will need other SNF placement
[2018-03-08] MEDS: Levothyroxine TAB* 25 MCG TAB PO SCH (14:08)
[2018-03-08] MEDS: cefTRIAXone* 1 GM in NS 0.9% 50 ML BAG IVPB SCH (17:33)
[2018-03-08] MEDS: Enoxaparin(*) 60 MG/0.6 ML SYR SUBCUT SCH (21:04)
[2018-03-08] MEDS: Melatonin 3 MG TAB PO PRN (23:16)
[2018-03-09] MEDS: Omeprazole CAP* 20 MG PO SCH (05:19)
[2018-03-09 07:52] LABS: EGFR Non-African American 24.2 (>60)
[2018-03-09] MEDS: Metoprolol Succinate XL TAB* 50 MG PO SCH (09:29)
[2018-03-09] MEDS: Famotidine TAB* 20 MG PO SCH (09:29)
[2018-03-09] MEDS: Atorvastatin* 40 MG TAB PO SCH (09:30)
[2018-03-09] MEDS: Docusate CAP* 100 MG PO SCH ×2 (09:32→19:23)
[2018-03-09] MEDS: Furosemide TAB* 40 MG PO SCH (09:32)
[2018-03-09] MEDS: Digoxin TAB* 0.125 MG PO SCH (09:33)
[2018-03-09] MEDS: Levothyroxine TAB* 25 MCG TAB PO SCH (09:34)
[2018-03-09] MEDS: QUEtiapine TAB* 25 MG PO SCH ×2 (09:35→19:23)
[2018-03-09] MEDS: guaiFENesin ER TAB 600 MG PO SCH ×2 (09:36→19:23)
[2018-03-09] MEDS: Ferrous Gluconate TAB* 324 MG TAB PO SCH (09:40)
--- NOTE | 2018-03-09 15:00 | PN ---
Subjective Date of Service: 03/09/18 Interval History: Still requiring a safety monitor, reportedly confused and refusing treatment this morning. In the afternoon with me, she is more calm and pleasant. She has no complaints and is eating soup and a sandwich, resting comfortably. Family History: Unchanged from Admission Social History: Unchanged from Admission Past Medical History: Unchanged from Admission Objective Active Medications: Acetaminophen (Tylenol Tab*) 650 mg PO Q6H PRN PRN Reason: FEVER/PAIN Albuterol (Ventolin 2.5 Mg/3 Ml Neb.Aliyah*) 2.5 mg INH Q2H PRN PRN Reason: SOB/WHEEZING Atorvastatin Calcium (Lipitor*) 40 mg PO DAILY REPLACED BY [facility] Last Admin: 03/09/18 09:30 Dose: 40 mg Digoxin (Lanoxin Tab*) 0.125 mg PO EVERY OTHER DAY REPLACED BY [facility] Last Admin: 03/09/18 09:33 Dose: 0.125 mg Docusate Sodium (Colace Cap*) 200 mg PO BID REPLACED BY [facility] Last Admin: 03/09/18 09:32 Dose: 200 mg Enoxaparin Sodium (Lovenox(*)) 60 mg SUBCUT Q24H REPLACED BY [facility] Last Admin: 03/08/18 21:04 Dose: 60 mg Famotidine (Pepcid Tab*) 20 mg PO DAILY REPLACED BY [facility] Last Admin: 03/09/18 09:29 Dose: 20 mg Ferrous Gluconate (Fergon Tab*) 325 mg PO DAILY REPLACED BY [facility] Last Admin: 03/09/18 09:40 Dose: 324 mg Furosemide (Lasix Tab*) 40 mg PO DAILY REPLACED BY [facility] Last Admin: 03/09/18 09:32 Dose: 40 mg Guaifenesin (Mucinex*) 1,200 mg PO BID REPLACED BY [facility] Last Admin: 03/09/18 09:36 Dose: 1,200 mg Haloperidol Lactate (Haldol Inj Iv/Im*) 2.5 mg IM Q6H PRN PRN Reason: AGITATION Last Admin: 03/05/18 19:58 Dose: 2.5 mg Ceftriaxone Sodium 1 gm/ (Sodium Chloride) 50 mls @ 200 mls/hr IVPB Q24H REPLACED BY [facility] Last Admin: 03/08/18 17:33 Dose: 200 mls/hr Levothyroxine Sodium (Synthroid Tab*) 25 mcg PO DAILY REPLACED BY [facility] Last Admin: 03/09/18 09:34 Dose: 25 mcg Melatonin (Melatonin) 3 mg PO BEDTIME PRN; Protocol PRN Reason: Sleep Last Admin: 03/08/18 23:16 Dose: 3 mg Metoprolol Succinate (Toprol Xl Tab*) 50 mg PO DAILY REPLACED BY [facility] Last Admin: 03/09/18 09:29 Dose: 50 mg Omeprazole (Prilosec Cap*) 20 mg PO DAILY@0600 REPLACED BY [facility] Last Admin: 03/09/18 05:19 Dose: 20 mg Ondansetron HCl (Zofran Odt Tab*) 4 mg PO Q6H PRN PRN Reason: n/v Quetiapine Fumarate (Seroquel Tab*) 12.5 mg PO BID REPLACED BY [facility] Last Admin: 03/09/18 09:35 Dose: 12.5 mg Vital Signs - 8 hr 03/09/18 03/09/18 03/09/18 08:00 08:22 09:33 Temperature 98.0 F Pulse Rate 90 90 Respiratory 16 18 Rate Blood Pressure 132/85 (mmHg) O2 Sat by Pulse 98 Oximetry 03/09/18 03/09/18 11:13 11:15 Temperature 98.1 F 98.1 F Pulse Rate 95 95 Respiratory 18 18 Rate Blood Pressure 141/76 141/76 (mmHg) O2 Sat by Pulse 97 97 Oximetry Oxygen Devices in Use Now: None Appearance: alert, oriented to self and thinks we are in spring, doesn't know the year Eyes: No Scleral Icterus Ears/Nose/Mouth/Throat: NL Teeth, Lips, Gums Neck: NL Appearance and Movements; NL JVP Respiratory: Symmetrical Chest Expansion and Respiratory Effort, Clear to Auscultation Cardiovascular: RRR Abdominal: NL Sounds; No Tenderness; No Distention Lymphatic: No Cervical Adenopathy Extremities: - - both legs are erythematous, cool, with in tact sensation and strength, diminished pulses Result Diagrams: 03/07/18 04:57 03/09/18 07:17 Additional Lab and Data: Laboratory Tests 03/07/18 03/07/18 03/08/18 04:57 04:57 05:37 Magnesium 2.8 H Troponin I 0.07 H* 0.11 H* B-Natriuretic Peptide 2574 H 03/08/18 08:04 Magnesium Troponin I 0.09 H* B-Natriuretic Peptide Microbiology and Other Data: Assess/Plan/Problems-Billing Assessment: 87 yo female with a PMH of dementia, CAD/MT/3vCABG, HTN, HLD, hypothyroidism, LUE DVT & PE, PAOD, chronic BLE edema & erythema with intermittent weeping who presented to [facility] on 03/04 after she was discharged from [facility] for 2 weeks with UTI, L foot cellulitis & CHF to [place] where she became aggressive and agitated throwing chairs, punching residents. 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 - Patient Problems (1) Acute on chronic diastolic CHF (congestive heart failure) Current Visit: Yes Status: Acute Priority: High Code(s): I50.33 - ACUTE ON CHRONIC DIASTOLIC (CONGESTIVE) HEART FAILURE SNOMED Code(s): 903353731 Comment: resolved, she is now euvolemic continue home dose of lasix (2) Confusion Current Visit: Yes Status: Acute Priority: High Code(s): R41.0 - DISORIENTATION, UNSPECIFIED SNOMED Code(s): 019114922 Comment: she is calm and pleasant this afternoon suspect hospital-related delirium in setting of dementia continue seroquel bid (3) PVD (peripheral vascular disease) Current Visit: Yes Status: Acute Priority: High Code(s): I73.9 - PERIPHERAL VASCULAR DISEASE, UNSPECIFIED SNOMED Code(s): 644356882 Comment: check ABIs (4) UTI (urinary tract infection) Current Visit: Yes Status: Acute Priority: High Comment: ceftriaxone day 3 (5) History of deep venous thrombosis or pulmonary embolus Current Visit: Yes Status: Chronic Priority: Medium Code(s): DKW2240 - SNOMED Code(s): 443429048 Comment: she is lovenox 1mg/kg/day? this is not appropriate for a therapeutic nor a prophylactic dose (6) Hx of coronary artery disease Current Visit: Yes Status: Chronic Priority: High Code(s): Z86.79 - PERSONAL HISTORY OF OTHER DISEASES OF THE CIRCULATORY SYSTEM SNOMED Code(s): 822375027 Comment: Elevated troponin - suspect demand ischemia 2/2 CHF Per daughter her aerodynamic consultant recommends medical management only Continue metoprolol Status and Disposition: Inpatient. Was not offered bed at [facility]; awaiting to hear back from other facilities.
[2018-03-09] MEDS: Enoxaparin(*) 60 MG/0.6 ML SYR SUBCUT SCH (19:23)
[2018-03-10] MEDS: Atorvastatin* 40 MG TAB PO SCH (08:31)
[2018-03-10] MEDS: Levothyroxine TAB* 25 MCG TAB PO SCH (08:32)
[2018-03-10] MEDS: Omeprazole CAP* 20 MG PO SCH (08:32)
[2018-03-10] MEDS: Famotidine TAB* 20 MG PO SCH (08:32)
[2018-03-10] MEDS: Docusate CAP* 100 MG PO SCH ×2 (08:33→20:09)
[2018-03-10] MEDS: guaiFENesin ER TAB 600 MG PO SCH ×2 (08:34→20:09)
[2018-03-10] MEDS: Ferrous Gluconate TAB* 324 MG TAB PO SCH (08:35)
[2018-03-10] MEDS: Furosemide TAB* 40 MG PO SCH (08:35)
[2018-03-10] MEDS: QUEtiapine TAB* 25 MG PO SCH ×2 (08:36→20:09)
[2018-03-10] MEDS: Metoprolol Succinate XL TAB* 50 MG PO SCH (08:45)
--- NOTE | 2018-03-10 11:43 | PN ---
Subjective Date of Service: 03/10/18 Interval History: Had a very good night. Slept for 8 hours and exhibited no combativeness, restlessness, impulsiveness. she feels good and has no complaints. She is playing with a spilled box of [employer]. Family History: Unchanged from Admission Social History: Unchanged from Admission Past Medical History: Unchanged from Admission Objective Active Medications: Acetaminophen (Tylenol Tab*) 650 mg PO Q6H PRN PRN Reason: FEVER/PAIN Albuterol (Ventolin 2.5 Mg/3 Ml Neb.Aliyah*) 2.5 mg INH Q2H PRN PRN Reason: SOB/WHEEZING Atorvastatin Calcium (Lipitor*) 40 mg PO DAILY [facility] Last Admin: 03/10/18 08:31 Dose: 40 mg Digoxin (Lanoxin Tab*) 0.125 mg PO EVERY OTHER DAY [facility] Last Admin: 03/09/18 09:33 Dose: 0.125 mg Docusate Sodium (Colace Cap*) 200 mg PO BID [facility] Last Admin: 03/10/18 08:33 Dose: 200 mg Enoxaparin Sodium (Lovenox(*)) 60 mg SUBCUT Q24H [facility] Last Admin: 03/09/18 19:23 Dose: 60 mg Famotidine (Pepcid Tab*) 20 mg PO DAILY [facility] Last Admin: 03/10/18 08:32 Dose: 20 mg Ferrous Gluconate (Fergon Tab*) 325 mg PO DAILY [facility] Last Admin: 03/10/18 08:35 Dose: 324 mg Furosemide (Lasix Tab*) 40 mg PO DAILY [facility] Last Admin: 03/10/18 08:35 Dose: 40 mg Guaifenesin (Mucinex*) 1,200 mg PO BID [facility] Last Admin: 03/10/18 08:34 Dose: 1,200 mg Haloperidol Lactate (Haldol Inj Iv/Im*) 2.5 mg IM Q6H PRN PRN Reason: AGITATION Last Admin: 03/05/18 19:58 Dose: 2.5 mg Levothyroxine Sodium (Synthroid Tab*) 25 mcg PO DAILY [facility] Last Admin: 03/10/18 08:32 Dose: 25 mcg Melatonin (Melatonin) 3 mg PO BEDTIME PRN; Protocol PRN Reason: Sleep Last Admin: 03/08/18 23:16 Dose: 3 mg Metoprolol Succinate (Toprol Xl Tab*) 50 mg PO DAILY [facility] Last Admin: 03/10/18 08:45 Dose: 50 mg Omeprazole (Prilosec Cap*) 20 mg PO DAILY@0600 [facility] Last Admin: 03/10/18 08:32 Dose: 20 mg Ondansetron HCl (Zofran Odt Tab*) 4 mg PO Q6H PRN PRN Reason: n/v Quetiapine Fumarate (Seroquel Tab*) 12.5 mg PO BID [facility] Last Admin: 03/10/18 08:36 Dose: 12.5 mg Vital Signs - 8 hr 03/10/18 03/10/18 08:00 08:44 Temperature 97.4 F Pulse Rate 85 Respiratory 20 16 Rate Blood Pressure 138/83 (mmHg) O2 Sat by Pulse 98 100 Oximetry Oxygen Devices in Use Now: None Appearance: alert, sitting on edge of bed eating breakfast Eyes: No Scleral Icterus, - - injected conjunctiva Ears/Nose/Mouth/Throat: NL Teeth, Lips, Gums Neck: NL Appearance and Movements; NL JVP Respiratory: Symmetrical Chest Expansion and Respiratory Effort, Clear to Auscultation Cardiovascular: NL Sounds; No Murmurs; No JVD, RRR Abdominal: NL Sounds; No Tenderness; No Distention Lymphatic: No Cervical Adenopathy Extremities: - - erythema and diminished pulses b/l legs Skin: No Rash or Ulcers Neurological: - - oriented to self only Result Diagrams: 03/07/18 04:57 03/09/18 07:17 Additional Lab and Data: Laboratory Tests 03/07/18 03/07/18 03/08/18 04:57 04:57 05:37 Magnesium 2.8 H Troponin I 0.07 H* 0.11 H* B-Natriuretic Peptide 2574 H 03/08/18 08:04 Magnesium Troponin I 0.09 H* B-Natriuretic Peptide Microbiology and Other Data: Assess/Plan/Problems-Billing Assessment: 87 yo female with a PMH of dementia, CAD/HI/3vCABG, HTN, HLD, hypothyroidism, LUE DVT & PE, PAOD, chronic BLE edema & erythema with intermittent weeping who presented to [facility] on 03/04 after she was discharged from [facility] for 2 weeks with UTI, L foot cellulitis & CHF to [place] where she became aggressive and agitated throwing chairs, punching residents. 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 - Patient Problems (1) Confusion Current Visit: Yes Status: Acute Priority: High Code(s): R41.0 - DISORIENTATION, UNSPECIFIED SNOMED Code(s): 979448046 Comment: resolved tele, IVs removed yesterday to improve comfort and orientation suspect hospital-related delirium in setting of dementia continue seroquel bid (2) Acute on chronic diastolic CHF (congestive heart failure) Current Visit: Yes Status: Acute Priority: High Code(s): I50.33 - ACUTE ON CHRONIC DIASTOLIC (CONGESTIVE) HEART FAILURE SNOMED Code(s): 487947599 Comment: resolved, she is now euvolemic continue home dose of lasix (3) PVD (peripheral vascular disease) Current Visit: Yes Status: Acute Priority: High Code(s): I73.9 - PERIPHERAL VASCULAR DISEASE, UNSPECIFIED SNOMED Code(s): 814287531 Comment: check ABIs (4) UTI (urinary tract infection) Current Visit: Yes Status: Acute Priority: High Comment: completed 3 days of ceftriaxone; culture unremarkable (5) History of deep venous thrombosis or pulmonary embolus Current Visit: Yes Status: Chronic Priority: Medium Code(s): HMZ0456 - SNOMED Code(s): 434744035 Comment: she is lovenox 1mg/kg/day? this is not appropriate for a therapeutic nor a prophylactic dose, however this is what she was discharged on from [place] I suspect their reasoning was due to fall risk so they chose a reduced dose (6) Hx of coronary artery disease Current Visit: Yes Status: Chronic Priority: High Code(s): Z86.79 - PERSONAL HISTORY OF OTHER DISEASES OF THE CIRCULATORY SYSTEM SNOMED Code(s): 470627092 Comment: Elevated troponin - suspect demand ischemia 2/2 CHF Per daughter her welder/fabricator recommends medical management only Continue metoprolol Status and Disposition: Inpatient. Was not offered bed at [facility]; awaiting to hear back from other facilities.
[2018-03-10] MEDS ORDERED: QUEtiapine TAB* 25 MG PO ONE (17:21)
[2018-03-10] MEDS: Melatonin 3 MG TAB PO PRN (20:09)
[2018-03-10] MEDS: Enoxaparin(*) 60 MG/0.6 ML SYR SUBCUT SCH (20:17)
[2018-03-11] MEDS: Metoprolol Succinate XL TAB* 50 MG PO SCH (08:44)
[2018-03-11] MEDS: Levothyroxine TAB* 25 MCG TAB PO SCH (08:44)
[2018-03-11] MEDS: QUEtiapine TAB* 25 MG PO SCH ×2 (08:45→21:13)
[2018-03-11] MEDS: Atorvastatin* 40 MG TAB PO SCH (08:46)
[2018-03-11] MEDS: Digoxin TAB* 0.125 MG PO SCH (08:46)
[2018-03-11] MEDS: guaiFENesin ER TAB 600 MG PO SCH (08:47)
[2018-03-11] MEDS: Omeprazole CAP* 20 MG PO SCH (08:47)
[2018-03-11] MEDS: Famotidine TAB* 20 MG PO SCH (08:47)
[2018-03-11] MEDS: Furosemide TAB* 40 MG PO SCH (08:47)
[2018-03-11] MEDS: Docusate CAP* 100 MG PO SCH (08:48)
[2018-03-11] MEDS: Ferrous Gluconate TAB* 324 MG TAB PO SCH (08:49)
--- NOTE | 2018-03-11 14:02 | PN ---
Subjective Date of Service: 03/11/18 Interval History: Pt reportedly had a decent night. Staff has noticed that if they tell the patient to do something she becomes angry but if she does it on her own she is in appropriate behavioral control. This am the patient has done well per her sitter. She was awaken and interactive. Now sleeping . Family History: Unchanged from Admission Social History: Unchanged from Admission Past Medical History: Unchanged from Admission Objective Active Medications: Acetaminophen (Tylenol Tab*) 650 mg PO Q6H PRN PRN Reason: FEVER/PAIN Albuterol (Ventolin 2.5 Mg/3 Ml Neb.Aliyah*) 2.5 mg INH Q2H PRN PRN Reason: SOB/WHEEZING Atorvastatin Calcium (Lipitor*) 40 mg PO DAILY [facility] Last Admin: 03/11/18 08:46 Dose: 40 mg Digoxin (Lanoxin Tab*) 0.125 mg PO EVERY OTHER DAY [facility] Last Admin: 03/11/18 08:46 Dose: 0.125 mg Docusate Sodium (Colace Cap*) 200 mg PO BID [facility] Last Admin: 03/11/18 08:48 Dose: Not Given Enoxaparin Sodium (Lovenox(*)) 60 mg SUBCUT Q24H [facility] Last Admin: 03/10/18 20:17 Dose: 60 mg Famotidine (Pepcid Tab*) 20 mg PO DAILY [facility] Last Admin: 03/11/18 08:47 Dose: 20 mg Ferrous Gluconate (Fergon Tab*) 325 mg PO DAILY [facility] Last Admin: 03/11/18 08:49 Dose: 324 mg Furosemide (Lasix Tab*) 40 mg PO DAILY [facility] Last Admin: 03/11/18 08:47 Dose: 40 mg Guaifenesin (Mucinex*) 1,200 mg PO BID [facility] Last Admin: 03/11/18 08:47 Dose: 1,200 mg Haloperidol Lactate (Haldol Inj Iv/Im*) 2.5 mg IM Q6H PRN PRN Reason: AGITATION Last Admin: 03/05/18 19:58 Dose: 2.5 mg Levothyroxine Sodium (Synthroid Tab*) 25 mcg PO DAILY [facility] Last Admin: 03/11/18 08:44 Dose: 25 mcg Melatonin (Melatonin) 3 mg PO BEDTIME PRN; Protocol PRN Reason: Sleep Last Admin: 03/10/18 20:09 Dose: 3 mg Metoprolol Succinate (Toprol Xl Tab*) 50 mg PO DAILY [facility] Last Admin: 03/11/18 08:44 Dose: 50 mg Omeprazole (Prilosec Cap*) 20 mg PO DAILY@0600 [facility] Last Admin: 03/11/18 08:47 Dose: 20 mg Ondansetron HCl (Zofran Odt Tab*) 4 mg PO Q6H PRN PRN Reason: n/v Quetiapine Fumarate (Seroquel Tab*) 12.5 mg PO BID [facility] Last Admin: 03/11/18 08:45 Dose: 12.5 mg Vital Signs - 8 hr 03/11/18 03/11/18 03/11/18 07:51 08:00 08:09 Temperature 98.1 F Pulse Rate 87 Respiratory 16 18 Rate Blood Pressure 136/82 (mmHg) O2 Sat by Pulse 98 93 Oximetry 03/11/18 03/11/18 08:46 13:46 Temperature 97.4 F Pulse Rate 87 79 Respiratory 16 Rate Blood Pressure 123/80 (mmHg) O2 Sat by Pulse 95 Oximetry Oxygen Devices in Use Now: None Appearance: Elderly female lying in bed sleeping, NAD Ears/Nose/Mouth/Throat: Mucous Membranes Moist Respiratory: Symmetrical Chest Expansion and Respiratory Effort, Clear to Auscultation Cardiovascular: NL Sounds; No Murmurs; No JVD, RRR, - - LLE 3+ edema Abdominal: NL Sounds; No Tenderness; No Distention Extremities: No Clubbing, Cyanosis Skin: - - bruising noted to the hand bilaterally, bruising noted to anterior L leg Neurological: Alert and Oriented x 3 Result Diagrams: 03/07/18 04:57 03/09/18 07:17 Additional Lab and Data: Laboratory Tests 03/07/18 03/07/18 03/08/18 04:57 04:57 05:37 Magnesium 2.8 H Troponin I 0.07 H* 0.11 H* B-Natriuretic Peptide 2574 H 03/08/18 08:04 Magnesium Troponin I 0.09 H* B-Natriuretic Peptide Microbiology and Other Data: Assess/Plan/Problems-Billing Ms Thao jj87 yo female with a PMH of dementia, CAD/AL/3vCABG, HTN, HLD, hypothyroidism, LUE DVT & PE, PAOD, chronic BLE edema & erythema with intermittent weeping who presented to [facility] on 03/04 after she was discharged from [facility] for 2 weeks with UTI, L foot cellulitis & CHF to [place] where she became aggressive and agitated throwing chairs, punching residents. 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 - Patient Problems (1) Confusion Current Visit: Yes Status: Acute Priority: High Code(s): R41.0 - DISORIENTATION, UNSPECIFIED SNOMED Code(s): 803839397 Comment: Pt behaviorally is much more appropriate over the last couple days. I suspect her confusion is from her baseline dementia. No evidence of infection on admission or during the hospitalization including pneumonia and UTI. She may have delirium from being hospitalized though difficult to determine. Continue seroquel for behaviors. (2) Acute on chronic diastolic CHF (congestive heart failure) Current Visit: Yes Status: Acute Code(s): I50.33 - ACUTE ON CHRONIC DIASTOLIC (CONGESTIVE) HEART FAILURE SNOMED Code(s): 959599136 Comment: Pt with mild exacerbation of diastolic CHF on admission. Currently she shows no signs of overt fluid overload. Will continue home dose of lasix. (3) Hypothyroidism Current Visit: Yes Status: Acute Code(s): E03.9 - HYPOTHYROIDISM, UNSPECIFIED SNOMED Code(s): 91967239 Comment: Continue home dose of synthroid. (4) PVD (peripheral vascular disease) Current Visit: Yes Status: Acute Priority: High Code(s): I73.9 - PERIPHERAL VASCULAR DISEASE, UNSPECIFIED SNOMED Code(s): 452608867 Comment: Pt with eschars noted to 3-4 toes on L as well as overlying the achilles. Will discuss work up with pt's daughter. (5) History of deep venous thrombosis or pulmonary embolus Current Visit: Yes Status: Chronic Code(s): VTX2440 - SNOMED Code(s): 242743705 Comment: Pt with h/o RUE DVT but has LLE swelling. Will get doppler of LLE to r/o DVT. Pt is now on lovenox 60mg SQ BID, appropriately dosed for full anticoagulation. Will discuss with patient's daughter to determine if she would like to take the risk of bleeding from anticoagulation vs risk of DVT/CVA (pt with reported h/o afib). (6) UTI (urinary tract infection) Current Visit: Yes Status: Acute Priority: High Comment: Culture negative. No evidence of UTI. she received 3 days of ceftriaxone. (7) DNR (do not resuscitate) Current Visit: Yes Status: Chronic Status and Disposition: Inpatient. Was not offered bed at [facility]; awaiting to hear back from other facilities.
[2018-03-11] MEDS ORDERED: Docusate CAP* 100 MG PO PRN (15:05)
--- NOTE | 2018-03-11 18:07 | RAD ---
INDICATION: Swelling left leg. COMPARISON: There are no relevant prior studies available for comparison. TECHNIQUE: Multiple real-time, color flow and Doppler tracings of the left lower extremity were obtained. FINDINGS: The common femoral, femoral, profunda femoral and popliteal veins all demonstrate normal compressibility, augmentation with compression and phasic response with respiration. The posterior tibial and peroneal veins demonstrate normal compressibility and augmentation with compression. There is a Sanchez's cyst measuring 2.6 x 3.5 x 1.2 cm. Thereafter is edema throughout the calf. IMPRESSION: 1. NO EVIDENCE FOR DEEP VENOUS THROMBOSIS. 2. SANCHEZ'S CYST.
[2018-03-11] MEDS: Enoxaparin(*) 60 MG/0.6 ML SYR SUBCUT SCH (21:13)
[2018-03-12] MEDS: Ferrous Gluconate TAB* 324 MG TAB PO SCH (08:13)
[2018-03-12] MEDS: QUEtiapine TAB* 25 MG PO SCH ×2 (08:14→21:10)
[2018-03-12] MEDS: Levothyroxine TAB* 25 MCG TAB PO SCH (08:15)
[2018-03-12] MEDS: Metoprolol Succinate XL TAB* 50 MG PO SCH (08:16)
[2018-03-12] MEDS: Furosemide TAB* 40 MG PO SCH (08:17)
[2018-03-12] MEDS: Atorvastatin* 40 MG TAB PO SCH (08:18)
[2018-03-12] MEDS: Omeprazole CAP* 20 MG PO SCH (08:18)
[2018-03-12] MEDS: Famotidine TAB* 20 MG PO SCH (08:18)
--- NOTE | 2018-03-12 11:41 | PN ---
Subjective Date of Service: 03/12/18 Interval History: Pt is feeling well. She is eating breakfast currently. She denies any pain at this time. She states her breathing feels better. She has enjoyed her food this AM. Family History: Unchanged from Admission Social History: Unchanged from Admission Past Medical History: Unchanged from Admission Objective Active Medications: Acetaminophen (Tylenol Tab*) 650 mg PO Q6H PRN PRN Reason: FEVER/PAIN Albuterol (Ventolin 2.5 Mg/3 Ml Neb.Aliyah*) 2.5 mg INH Q2H PRN PRN Reason: SOB/WHEEZING Atorvastatin Calcium (Lipitor*) 40 mg PO DAILY [facility] Last Admin: 03/12/18 08:18 Dose: 40 mg Digoxin (Lanoxin Tab*) 0.125 mg PO EVERY OTHER DAY [facility] Last Admin: 03/11/18 08:46 Dose: 0.125 mg Docusate Sodium (Colace Cap*) 200 mg PO BID PRN PRN Reason: CONSTIPATION Enoxaparin Sodium (Lovenox(*)) 60 mg SUBCUT Q24H [facility] Last Admin: 03/11/18 21:13 Dose: 60 mg Famotidine (Pepcid Tab*) 20 mg PO DAILY [facility] Last Admin: 03/12/18 08:18 Dose: 20 mg Ferrous Gluconate (Fergon Tab*) 325 mg PO DAILY [facility] Last Admin: 03/12/18 08:13 Dose: 324 mg Furosemide (Lasix Tab*) 40 mg PO DAILY [facility] Last Admin: 03/12/18 08:17 Dose: 40 mg Haloperidol Lactate (Haldol Inj Iv/Im*) 2.5 mg IM Q6H PRN PRN Reason: AGITATION Last Admin: 03/05/18 19:58 Dose: 2.5 mg Levothyroxine Sodium (Synthroid Tab*) 25 mcg PO DAILY [facility] Last Admin: 03/12/18 08:15 Dose: 25 mcg Metoprolol Succinate (Toprol Xl Tab*) 50 mg PO DAILY [facility] Last Admin: 03/12/18 08:16 Dose: 50 mg Omeprazole (Prilosec Cap*) 20 mg PO DAILY@0600 [facility] Last Admin: 03/12/18 08:18 Dose: 20 mg Ondansetron HCl (Zofran Odt Tab*) 4 mg PO Q6H PRN PRN Reason: n/v Quetiapine Fumarate (Seroquel Tab*) 12.5 mg PO BID [facility] Last Admin: 03/12/18 08:14 Dose: 12.5 mg Vital Signs - 8 hr 03/12/18 03/12/18 03/12/18 07:42 07:57 07:58 Temperature 98.2 F Pulse Rate 79 Respiratory Rate Blood Pressure 141/95 (mmHg) O2 Sat by Pulse 90 98 98 Oximetry 03/12/18 08:00 Temperature Pulse Rate Respiratory 20 Rate Blood Pressure (mmHg) O2 Sat by Pulse Oximetry Oxygen Devices in Use Now: None Appearance: Elderly female sitting up in bed, NAD Eyes: No Scleral Icterus Ears/Nose/Mouth/Throat: Mucous Membranes Moist Respiratory: Symmetrical Chest Expansion and Respiratory Effort, Clear to Auscultation Cardiovascular: RRR, - - III/ systolic murmur heard best at the RUSB; 3+ LLE edema Abdominal: NL Sounds; No Tenderness; No Distention Extremities: No Clubbing, Cyanosis Skin: - - eschars unchanged on L foot, small hematoma noted on L forehead with scab in center Neurological: - - pleasant, able to carry on appropriate conversation with some periods of very obvious confusion Result Diagrams: 03/07/18 04:57 03/09/18 07:17 Additional Lab and Data: Laboratory Tests 03/07/18 03/07/18 03/08/18 04:57 04:57 05:37 Magnesium 2.8 H Troponin I 0.07 H* 0.11 H* B-Natriuretic Peptide 2574 H 03/08/18 08:04 Magnesium Troponin I 0.09 H* B-Natriuretic Peptide Microbiology and Other Data: Assess/Plan/Problems-Billing Ms Thao jj87 yo female with a PMH of dementia, CAD/MO/3vCABG, HTN, HLD, hypothyroidism, LUE DVT & PE, PAOD, chronic BLE edema & erythema with intermittent weeping who presented to [facility] on 03/04 after she was discharged from [facility] for 2 weeks with UTI, L foot cellulitis & CHF to [place] where she became aggressive and agitated throwing chairs, punching residents. 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 - Patient Problems (1) Confusion Current Visit: Yes Status: Acute Priority: High Code(s): R41.0 - DISORIENTATION, UNSPECIFIED SNOMED Code(s): 985628973 Comment: Pt behaviorally is much more appropriate over the last couple days. Likely patient with hospital induced delirium. Continue seroquel as pt currently is doing quite well. Await placement for rehab. (2) Acute on chronic diastolic CHF (congestive heart failure) Current Visit: Yes Status: Acute Code(s): I50.33 - ACUTE ON CHRONIC DIASTOLIC (CONGESTIVE) HEART FAILURE SNOMED Code(s): 536169164 Comment: Pt with mild exacerbation of diastolic CHF on admission. Currently she shows no signs of overt fluid overload. Will continue home dose of lasix. (3) Hypothyroidism Current Visit: Yes Status: Acute Code(s): E03.9 - HYPOTHYROIDISM, UNSPECIFIED SNOMED Code(s): 82813711 Comment: Continue home dose of synthroid. (4) PVD (peripheral vascular disease) Current Visit: Yes Status: Acute Priority: High Code(s): I73.9 - PERIPHERAL VASCULAR DISEASE, UNSPECIFIED SNOMED Code(s): 597838130 Comment: Pt with eschars noted to 3-4 toes on L as well as overlying the achilles. Pt had stenting procedure on RLE. Reportedly per the patient's daughter her vascular surgeon did not think anything needed to be done for the LLE. (5) History of deep venous thrombosis or pulmonary embolus Current Visit: Yes Status: Chronic Code(s): CJO7777 - SNOMED Code(s): 898951013 Comment: Pt with h/o RUE DVT but has LLE swelling. Will get doppler of LLE to r/o DVT. Pt is now on lovenox 60mg SQ BID, appropriately dosed for full anticoagulation. Still not clear why pt on lovenox as opposed to oral agent. Will look through [facility] records to try to determine. If no clear reason why she is on lovenox will change to eliquis. (6) UTI (urinary tract infection) Current Visit: Yes Status: Acute Priority: High Comment: Culture negative. No evidence of UTI. She received 3 days of ceftriaxone. (7) DNR (do not resuscitate) Current Visit: Yes Status: Chronic Status and Disposition: await bed offer
[2018-03-12] MEDS: Enoxaparin(*) 60 MG/0.6 ML SYR SUBCUT SCH (21:13)
[2018-03-13] MEDS: Omeprazole CAP* 20 MG PO SCH (06:30)
[2018-03-13] MEDS: Ferrous Gluconate TAB* 324 MG TAB PO SCH (09:59)
[2018-03-13] MEDS: QUEtiapine TAB* 25 MG PO SCH ×2 (10:04→20:31)
[2018-03-13] MEDS: Digoxin TAB* 0.125 MG PO SCH (10:06)
[2018-03-13] MEDS: Atorvastatin* 40 MG TAB PO SCH (10:06)
[2018-03-13] MEDS: Furosemide TAB* 40 MG PO SCH (10:06)
[2018-03-13] MEDS: Metoprolol Succinate XL TAB* 50 MG PO SCH (10:06)
[2018-03-13] MEDS: Levothyroxine TAB* 25 MCG TAB PO SCH (10:06)
[2018-03-13] MEDS: Famotidine TAB* 20 MG PO SCH (10:06)
--- NOTE | 2018-03-13 10:48 | DS ---
CC: Dr. Jones* DATE OF ADMISSION: 03/04/2018. DATE OF DISCHARGE: 03/17/2018. PRIMARY CARE PHYSICIAN: Dr. Jones. PRINCIPAL DIAGNOSES: 1. Mild diastolic CHF exacerbation. 2. Delirium in the setting of underlying dementia. 3. Left posterior calf wound. SECONDARY DIAGNOSES: 1. Hypothyroidism. 2. Hyperlipidemia. 3. Coronary artery disease. 4. Peripheral arterial disease. 5. History of right upper extremity DVT. DISCHARGE MEDICATIONS: 1. Potassium Chloride 20 mEq p.o. daily. 2. Ferrous Gluconate 325 mg p.o. at bedtime. 3. Levothyroxine 25 mcg p.o. daily. 4. Lasix 40 mg p.o. daily. 5. Famotidine 20 mg p.o. daily. 6. Digoxin 0.125 mg p.o. every other day. 7. Lipitor 40 mg p.o. daily. 8. Seroquel 25 mg p.o. b.i.d. 9. Metoprolol XL 50 mg p.o. b.i.d. 10. Eliquis 2.5mg p.o. b.i.d. HOSPITAL COURSE: Ms. Braxton is an 87-year-old female who had multiple hospitalizations at [facility] over the last one month who ultimately was discharged to [facility] on 03/04/2018. Once arriving to [facility], the patient became severely combative and was sent immediately to the emergency room for evaluation. It was felt that the patient was in a mild acute diastolic CHF exacerbation. The patient quickly recovered with IV Lasix. She now appears to be relatively euvolemic. During the early portion of the patient's hospitalization, she was markedly confused and combative. The patient was ultimately started on Seroquel 12.5 mg p.o. twice daily. With the addition of this medication, the patient is now under generally appropriate behavioral control. The patient does not like being told what to do. If you gently guide her and ask her questions, she is much more appropriate with that. At this point, again behaviorally, the patient is being appropriate, though she is quite confused. Psychiatry saw the patient earlier this hospitalization and recommended increasing the Seroquel to 25 mg twice daily. The patient has done quiet well. The patient has a history of a right upper extremity DVT. The patient was started on Lovenox 100 mg subcutaneous daily at [place]; however, due to the patient's renal function, an appropriate dose of 60 mg subcutaneous daily was started. It was not clear as to why the patient is on lovenox as opposed to an oral agent. Start eliquis 2.5 mg twice daily tonight. The patient also has a history of likely atrial fibrillation given her medication history. Her Amiodarone was discontinued this hospitalization. Her Metoprolol dose was decreased. At this point, the patient will continue on Metoprolol XL 50 mg twice daily and Digoxin 0.125 mg every other day. Her last Digoxin level was acceptable. The patient will also be on Eliquis as above. The patient does also have a history of peripheral arterial disease. She underwent a stenting procedure to the right lower extremity earlier this year. The patient will continue on Lipitor. On the day of discharge a shallow quarter sized ulceration was noted on the left posterior calf. Will ask that santyl be applied to the wound daily and covered with gauze. This should be continued until there is no more slough. At that point medi-lorena can be applied daily until the wound is healed. Additionally I think she would benefit from compression. Start Rob Hose on in the AM and off in the PM daily. FOLLOW-UP CONCERNS: The patient is being discharged to [facility] today, . ACTIVITY LEVEL: As tolerated. DIET: Heart healthy. CONDITION ON DISCHARGE: Stable. Please see the complete medical record for further details of this complicated hospitalization. Thirty-five minutes were spent discharging this patient. [id number]/[facility] #: [id number] [facility]
--- NOTE | 2018-03-13 14:54 | CONS ---
CONSULTATION REPORT: DATE OF CONSULT: 03/13/18. ATTENDING PHYSICIAN: Maddy Ellison DO. MAINTENANCE CONTROLLER: Dr. Francisco Turner. REASON FOR CONSULT: Confusion, aggression. SUBJECTIVE HISTORY: Ms. Braxton is an 87-year-old white female with a significant past medic al history of dementia, coronary artery disease, myocardial infarction, hypertension, hyperlipidemia, hypothyroidism, history of DVT, and pulmonary embolus, who had just been discharged from [facility] to the [facility] for rehab. There she did not adjust well to a new se tting, became agitated and violent, started picking up and throwing chairs, punching other residents. For this reason, she was sent to [facility] for evaluation and treatment. Since arrival , she has been placed on a conservative dose of quetiapine 12.5 mg twice daily, which appears to have benefited for her. I did speak with the nursing staff on a [facility] and they indicate that she can still be irritable and fussy particularly when asked to do routine health maintenance such as exc epting vitals or getting changed. Despite this, she has not attempted to harm anyone since her arriv al on this unit from the short stay unit. On examination, Ms. Braxton is pleasant and greets me. We talked a little bit about her past history and although she does have some intact remote autobiographical memory, her short-term memory and att ention are both compromised. She is disoriented to both the place and time and similarly disoriented to her situation. She can say only that she came here to find 1 of her daughters, but cannot identif y the name of the facility or why she is hospitalized. PAST PSYCHIATRIC HISTORY: I was unable to determine. She similarly does not recall or endorse any l kiki-term substance abuse issues. PAST MEDICAL HISTORY: Significant for coronary artery disease, myocardial infarction, three-vessel C ABG, hypertension, hyperlipidemia, chronic lower extremity edema, DVT, hypothyroidism, congestive hea rt failure. She is status post bilateral carotid endarterectomies, stent to right lower extremity, a ppendectomy, and bilateral cataract extractions. FAMILY HISTORY: Noncontributory. SOCIAL HISTORY: The patient quit smoking in 1992 with a 70 pack year history. Most recently she was living in [place] in her home. Apparently, she was to the same man of close to 50 years. H regine, he is . 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 She has 2 sons and 2 daughters. MENTAL STATUS EXAM: The patient is an aging white female, who has a stooped posture. She is sitting in her chair wearing patient gown. She is finishing lunch. The patient is cooperative with the exa mination, but does have trouble answering questions appropriately. Speech is halting with not much s pontaneity. Many of her responses appear to be confabulatory. Mood appears to be euthymic with a flako ewhat blunted affect. Thought process showed some latency. Thought content is somewhat disor ganized and confused. Insight and judgment are markedly impaired. Cognitively, she is awake and lucio rt. However, she is disoriented to person, place, time and situation with poor attention, poor recal l, although remote memory showed some intactness. DIAGNOSES: Viroqua I: Dementia likely cardiovascular type, but cannot rule out Alzheimer's. Viroqua II: D eferred. IMPRESSION: The patient is an 87-year-old, , white female with multiple medical comorbidities including dementia, who was sent here from the [facility] where she had presented with agitation and confusion. Since admission, she has been successfully treated with quetiapine 12.5 mg twice daily, which she is tolerating well. RECOMMENDATIONS FOR PRIMARY TEAM: Since her affect remains mildly irritable, I think we can safely i ncrease quetiapine from 12.5 to 25 mg twice daily. The patient is psychiatrically cleared for discha rge and I see no rationale for inpatient psychiatric treatment. I think it is in her interest to ret urn to rehab to try to optimize whatever independent skill she may possess at this time. Psychiatry w ill be signing off, but can be reconsulted in the event of any significant changes in her presentatio n. Thank you for the consultation. [id number]/[facility] #: [id number]
[2018-03-13] MEDS: Enoxaparin(*) 60 MG/0.6 ML SYR SUBCUT SCH (20:31)
[2018-03-13] MEDS: Haloperidol INJ IV/IM* 5 MG/ML AMP IM PRN (22:41)
[2018-03-14] MEDS: Omeprazole CAP* 20 MG PO SCH (05:41)
[2018-03-14] MEDS: Atorvastatin* 40 MG TAB PO SCH (09:45)
[2018-03-14] MEDS: Metoprolol Succinate XL TAB* 50 MG PO SCH (09:45)
[2018-03-14] MEDS: Levothyroxine TAB* 25 MCG TAB PO SCH (09:45)
[2018-03-14] MEDS: Famotidine TAB* 20 MG PO SCH (09:45)
[2018-03-14] MEDS: QUEtiapine TAB* 25 MG PO SCH ×2 (09:46→21:29)
[2018-03-14] MEDS: Ferrous Gluconate TAB* 324 MG TAB PO SCH (09:46)
[2018-03-14] MEDS: Furosemide TAB* 40 MG PO SCH (09:46)
--- NOTE | 2018-03-14 19:39 | ED ---
Course/Dx - Course Course Of Treatment: The patient is an 87 y/o F presenting to [facility] with a chief complaint of fall a few days. She suffered a large bruise to her left cheek, and her left leg is tender. She additionally has back pain and cuts/ bruises on her hands from falling. The pain is not aggravated or alleviated by anything. Per EMS report, the pt had tried to jump off the balcony at her prison and was being hostile towards staff. She has hx of COPD. Upon exam , pt has crackles in the lower left lung field. In the ED course, the pt was administered Benadryl. EKG shows LBBB and Afib at 81 BPM. Bloodwork is shows troponin of 0.04 and hyperkalemia. CXR reveals pacemaker obstructing image, can' t RO consolidation or pleural effusion. L Ankle XR shows calcaneal spurring. L Foot XR is negative. [facility] STATES PT CANNOT RETURN TO FACILITY. Patient will be diagnosed with community acquired pneumonia, hypoxia, agitation , hyperkalemia, dehydration, homelessness. Patient will be a sign-out to Dr. Wilder at shift change pending UA, Brain CT, Maxillofacial XR, Spine Cervical CT and awaiting disposition. Nursing reports pt is hypoxic; she has focal lung sounds. - Diagnoses Provider Diagnoses: Community acquired pneumonia, Hypoxia, Agitation, Hyperkalemia, Dehydration, Homelessness Discharge - Sign-Out/Discharge Documenting (check all that apply): Patient Departure - Discharge Plan Condition: Fair Disposition: ADMITTED TO [facility] - Billing Disposition and Condition Condition: FAIR Disposition: Admitted to [facility] - Attestation Statements Document Initiated by Khloe: No
[2018-03-14] MEDS: Enoxaparin(*) 60 MG/0.6 ML SYR SUBCUT SCH (21:30)
[2018-03-14] MEDS: Haloperidol INJ IV/IM* 5 MG/ML AMP IM PRN (22:46)
[2018-03-15] MEDS: Omeprazole CAP* 20 MG PO SCH ×3 (05:52→08:49)
[2018-03-15] MEDS: Levothyroxine TAB* 25 MCG TAB PO SCH ×3 (05:52→08:50)
[2018-03-15] MEDS: Ferrous Gluconate TAB* 324 MG TAB PO SCH (08:50)
[2018-03-15] MEDS: Atorvastatin* 40 MG TAB PO SCH (08:50)
[2018-03-15] MEDS: Famotidine TAB* 20 MG PO SCH (08:50)
[2018-03-15] MEDS: QUEtiapine TAB* 25 MG PO SCH ×2 (08:50→20:52)
[2018-03-15] MEDS: Furosemide TAB* 40 MG PO SCH (08:50)
[2018-03-15] MEDS: Metoprolol Succinate XL TAB* 50 MG PO SCH (08:50)
[2018-03-15] MEDS: Digoxin TAB* 0.125 MG PO SCH (08:50)
[2018-03-15 14:03] LABS: Hematocrit 45 % (35-47); Hemoglobin 14.3 g/dl (12.0-16.0)
[2018-03-15 18:12] LABS: Mean Platelet Volume 9.3 um3 (7.4-10.4); Platelet Count 147 10^3/ul (150-450)
[2018-03-15] MEDS: Enoxaparin(*) 60 MG/0.6 ML SYR SUBCUT SCH (21:32)
[2018-03-16] MEDS: Levothyroxine TAB* 25 MCG TAB PO SCH (05:30)
[2018-03-16] MEDS: Omeprazole CAP* 20 MG PO SCH (05:30)
[2018-03-16 06:05] LABS: Platelet Count 146 10^3/ul (150-450)
[2018-03-16] MEDS: Atorvastatin* 40 MG TAB PO SCH (09:39)
[2018-03-16] MEDS: Furosemide TAB* 40 MG PO SCH (09:39)
[2018-03-16] MEDS: QUEtiapine TAB* 25 MG PO SCH ×2 (09:39→19:45)
[2018-03-16] MEDS: Ferrous Gluconate TAB* 324 MG TAB PO SCH (09:39)
[2018-03-16] MEDS: Famotidine TAB* 20 MG PO SCH (09:39)
[2018-03-16] MEDS: Metoprolol Succinate XL TAB* 50 MG PO SCH (09:39)
[2018-03-16] MEDS: Enoxaparin(*) 60 MG/0.6 ML SYR SUBCUT SCH (19:45)
[2018-03-17] MEDS: Omeprazole CAP* 20 MG PO SCH (08:03)
[2018-03-17] MEDS: Digoxin TAB* 0.125 MG PO SCH (08:03)
[2018-03-17] MEDS: Furosemide TAB* 40 MG PO SCH (08:03)
[2018-03-17] MEDS: QUEtiapine TAB* 25 MG PO SCH (08:03)
[2018-03-17] MEDS: Levothyroxine TAB* 25 MCG TAB PO SCH (08:03)
[2018-03-17 08:04] VITALS: BP 142/87
[2018-03-17] MEDS: Ferrous Gluconate TAB* 324 MG TAB PO SCH (08:04)
[2018-03-17] MEDS: Famotidine TAB* 20 MG PO SCH (08:04)
[2018-03-17] MEDS: Metoprolol Succinate XL TAB* 50 MG PO SCH (08:04)
[2018-03-17] MEDS: Atorvastatin* 40 MG TAB PO SCH (08:04)
--- NOTE | 2018-03-17 11:58 | PN ---
Subjective Date of Service: 03/17/18 Interval History: Pt is sleeping and does not answer any of my questions. Per her aide and nurse the patient was awake this AM and ate breakfast. She held conversations but was confused. She was felt to be generally behaviorally acceptable. Family History: Unchanged from Admission Social History: Unchanged from Admission Past Medical History: Unchanged from Admission Objective Active Medications: Acetaminophen (Tylenol Tab*) 650 mg PO Q6H PRN PRN Reason: FEVER/PAIN Albuterol (Ventolin 2.5 Mg/3 Ml Neb.Aliyah*) 2.5 mg INH Q2H PRN PRN Reason: SOB/WHEEZING Atorvastatin Calcium (Lipitor*) 40 mg PO DAILY [facility] Last Admin: 03/17/18 08:04 Dose: 40 mg Digoxin (Lanoxin Tab*) 0.125 mg PO EVERY OTHER DAY [facility] Last Admin: 03/17/18 08:03 Dose: 0.125 mg Docusate Sodium (Colace Cap*) 200 mg PO BID PRN PRN Reason: CONSTIPATION Enoxaparin Sodium (Lovenox(*)) 60 mg SUBCUT Q24H [facility] Last Admin: 03/16/18 19:45 Dose: 60 mg Famotidine (Pepcid Tab*) 20 mg PO DAILY [facility] Last Admin: 03/17/18 08:04 Dose: 20 mg Ferrous Gluconate (Fergon Tab*) 324 mg PO DAILY [facility] Last Admin: 03/17/18 08:04 Dose: 324 mg Furosemide (Lasix Tab*) 40 mg PO DAILY [facility] Last Admin: 03/17/18 08:03 Dose: 40 mg Levothyroxine Sodium (Synthroid Tab*) 25 mcg PO 0600 [facility] Last Admin: 03/17/18 08:03 Dose: 25 mcg Metoprolol Succinate (Toprol Xl Tab*) 50 mg PO DAILY [facility] Last Admin: 03/17/18 08:04 Dose: 50 mg Omeprazole (Prilosec Cap*) 20 mg PO DAILY@0600 [facility] Last Admin: 03/17/18 08:03 Dose: 20 mg Ondansetron HCl (Zofran Odt Tab*) 4 mg PO Q6H PRN PRN Reason: n/v Quetiapine Fumarate (Seroquel Tab*) 25 mg PO BID [facility] Last Admin: 03/17/18 08:03 Dose: 25 mg Vital Signs - 8 hr 03/17/18 03/17/18 03/17/18 07:45 08:00 08:03 Temperature 97.6 F Pulse Rate 71 76 Respiratory 20 16 Rate Blood Pressure 142/87 (mmHg) O2 Sat by Pulse 98 Oximetry Oxygen Devices in Use Now: None Appearance: Elderly female sleeping, does not wake to soft voice or light touch. Cardiovascular: RRR, - - II/ systolic murmur, trace R LE edema, 3+ L LE edema Abdominal: NL Sounds; No Tenderness; No Distention Skin: - - new wound noted on posterior aspect of L leg, slough noted in wound base, no drainage, no surrounding erythema Neurological: - - sleeping Result Diagrams: 03/16/18 05:26 03/15/18 13:46 Additional Lab and Data: Laboratory Tests 03/07/18 03/07/18 03/08/18 04:57 04:57 05:37 Magnesium 2.8 H Troponin I 0.07 H* 0.11 H* B-Natriuretic Peptide 2574 H 03/08/18 08:04 Magnesium Troponin I 0.09 H* B-Natriuretic Peptide Microbiology and Other Data: Assess/Plan/Problems-Billing Ms Thao jj87 yo female with a PMH of dementia, CAD/DE/3vCABG, HTN, HLD, hypothyroidism, LUE DVT & PE, PAOD, chronic BLE edema & erythema with intermittent weeping who presented to [facility] on 03/04 after she was discharged from [facility] for 2 weeks with UTI, L foot cellulitis & CHF to [place] where she became aggressive and agitated throwing chairs, punching residents. 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 - Patient Problems (1) Confusion Current Visit: Yes Status: Acute Priority: High Code(s): R41.0 - DISORIENTATION, UNSPECIFIED SNOMED Code(s): 749435014 Comment: Behaviorally the patient has improved on seroquel 25mg BID. She is not too sleepy. She will continue on seroquel 25mg BID for demential with behavioral disturbances. (2) Acute on chronic diastolic CHF (congestive heart failure) Current Visit: Yes Status: Acute Code(s): I50.33 - ACUTE ON CHRONIC DIASTOLIC (CONGESTIVE) HEART FAILURE SNOMED Code(s): 324607956 Comment: Pt with LE edema but generally appears euvolemic. Continue current dose of lasix. (3) Hypothyroidism Current Visit: Yes Status: Acute Code(s): E03.9 - HYPOTHYROIDISM, UNSPECIFIED SNOMED Code(s): 98588725 Comment: Continue home dose of synthroid. (4) PVD (peripheral vascular disease) Current Visit: Yes Status: Acute Priority: High Code(s): I73.9 - PERIPHERAL VASCULAR DISEASE, UNSPECIFIED SNOMED Code(s): 038610360 Comment: Pt with eschars noted to 3-4 toes on L as well as overlying the achilles, now with quarter sized wound on L posterior calf. Pt had stenting procedure on RLE. Reportedly per the patient's daughter her vascular surgeon did not think anything needed to be done for the LLE. Will start collagenase to wound daily and cover with gauze, when the slough is gone apply medihoney daily until wound is healed. Apply myriam hose daily on in the AM, off in the PM. (5) History of deep venous thrombosis or pulmonary embolus Current Visit: Yes Status: Chronic Code(s): GOP0152 - SNOMED Code(s): 697812052 Comment: No clear reason why on lovenox as opposed to other agent. Change to eliquis 2.5mg BID and treat for 3-6 months. (6) UTI (urinary tract infection) Current Visit: Yes Status: Acute Priority: High Comment: Culture negative. No evidence of UTI. She received 3 days of ceftriaxone. (7) DNR (do not resuscitate) Current Visit: Yes Status: Chronic Status and Disposition: d/c to [facility]
[2018-03-17] MEDS ORDERED: Apixaban* 5 MG TAB PO SCH (21:00)
== END 2018-03-17 13:50 | DRG 292 ==
LOC: ED 17:00 → MEDTELE 22:48 → MED 03-11 13:32
PROVIDERS: ADMIT Hospitalist; ATTEND Hospitalist
DX: I11.0 Hypertensive heart disease with heart failure (principal); F05 Delirium due to known physiological condition; N17.9 Acute kidney failure, unspecified; N39.0 Urinary tract infection, site not specified; L97.229 Non-pressure chronic ulcer of left calf with unspecified severity; I50.43 Acute on chronic combined systolic (congestive) and diastolic (congestive) heart failure; I25.10 Atherosclerotic heart disease of native coronary artery without angina pectoris; E78.5 Hyperlipidemia, unspecified; E03.9 Hypothyroidism, unspecified; S00.83XA Contusion of other part of head, initial encounter; I73.9 Peripheral vascular disease, unspecified; S80.12XA Contusion of left lower leg, initial encounter; S60.222A Contusion of left hand, initial encounter; S60.221A Contusion of right hand, initial encounter; W19.XXXA Unspecified fall, initial encounter; J44.9 Chronic obstructive pulmonary disease, unspecified; E07.9 Disorder of thyroid, unspecified; I44.7 Left bundle-branch block, unspecified; I48.91 Unspecified atrial fibrillation; Y92.239 Unspecified place in hospital as the place of occurrence of the external cause; R60.0 Localized edema; R09.02 Hypoxemia; E87.5 Hyperkalemia; F03.90 Unspecified dementia, unspecified severity, without behavioral disturbance, psychotic disturbance, mood disturbance, and anxiety; Z66 Do not resuscitate; Z91.19 Patient's noncompliance with other medical treatment and regimen; Z95.828 Presence of other vascular implants and grafts; Z95.1 Presence of aortocoronary bypass graft; I25.2 Old myocardial infarction; Z86.718 Personal history of other venous thrombosis and embolism; Z86.711 Personal history of pulmonary embolism; Z95.810 Presence of automatic (implantable) cardiac defibrillator; Z98.42 Cataract extraction status, left eye; Z98.41 Cataract extraction status, right eye; Z87.891 Personal history of nicotine dependence; Z82.49 Family history of ischemic heart disease and other diseases of the circulatory system; Z83.49 Family history of other endocrine, nutritional and metabolic diseases; Z88.5 Allergy status to narcotic agent; Z88.8 Allergy status to other drugs, medicaments and biological substances; Z79.01 Long term (current) use of anticoagulants; Z59.0 Homelessness
CPT/HCPCS: 36415; 70450; 70486; 71045; 72125; 80048; 80053; 80162; 81003; 81015; 82565; 83605; 83735; 83880; 84100; 84484; 84520; 85014; 85018; 85025; 85049; 85610; 85730; 87040; 87086; 87641; 93005; 99284; A9270-GY; G8978-GP-CL; G8979-GP-CL; G8980-GP-CL; G8987-GO-CL; G8988-GO-CI; J0456; J0696; J1630; J1650; J1940; J3486

== ENCOUNTER 2018-03-18 16:11 | Inpatient (IN) | payer MEDICARE ==
--- NOTE | 2018-03-18 17:01 | ED ---
Altered Mental Status - HPI Summary HPI Summary: This pt is an 87 y/o female presenting to [facility] via EMS from [facility] for altered mental status. Per EMS pt was reportedly displaying aggressive behaviors and "throwing things around" while at [facility]. Currently pt denies any pain, fever, chills. PMHx includes HTN, CHF, dementia. HPI IS LIMITED DUE TO LEVEL 5 CAVEAT - pt with dementia. - History Of Current Complaint Chief Complaint: EDMentalHealth Stated Complaint: MHE Time Seen by Provider: 03/18/18 16:39 Hx Obtained From: Patient, EMS Hx From Patient Unobtainable Due To: Dementia Onset/Duration: Still Present Timing: Lasting Hours Severity Currently: None Character: Confusion Aggravating Factor(s): Unknown Alleviating Factor(s): Unknown Associated Signs And Symptoms: Negative: Nausea, Vomiting, Fever Related History: Other: - hx of dementia - Allergies/Home Medications Allergies/Adverse Reactions: Allergies Allergy/AdvReac Type Severity Reaction Status Date / Time codeine Allergy Unknown Verified 03/04/18 17:16 Reaction Details oxycodone Allergy Unknown Verified 03/04/18 17:16 Reaction Details ranolazine [From Ranexa] Allergy Unknown Verified 03/04/18 17:17 Reaction Details Home Medications: Home Medications Atorvastatin* [Lipitor*] 40 mg PO DAILY 03/18/18 [History Confirmed 03/18/18] Digoxin TAB* [Lanoxin TAB*] 0.125 mg PO EVERY OTHER DAY 03/18/18 [History Confirmed 03/18/18] Enoxaparin(*) [Lovenox(*)] 60 mg SUBCUT DAILY 03/18/18 [History Confirmed ] Famotidine TAB* [Pepcid 20 MG TAB*] 20 mg PO DAILY 03/18/18 [History Confirmed 03/18/18] Ferrous Gluconate TAB* [Fergon TAB*] 324 mg PO BEDTIME 03/18/18 [History Confirmed 03/18/18] Metoprolol Succinate XL TAB* [Toprol XL TAB*] 50 mg PO BID 03/18/18 [History Confirmed 03/18/18] Potassium Chlor TAB* [Potassium Chlor TAB 20 MEQ*] 20 meq PO BID 03/18/18 [ History Confirmed 03/18/18] PMH/Surg Hx/FS Hx/Imm Hx Endocrine/Hematology History: Reports: Hx Thyroid Disease Denies: Hx Diabetes Cardiovascular History: Reports: Hx Hypertension, Hx Myocardial Infarction, Hx Pacemaker/ICD Respiratory History: Denies: Hx Chronic Obstructive Pulmonary Disease (COPD), Hx Lung Cancer History: Denies: Hx Dialysis Sensory History: Denies: Hx Cataracts, Hx Contacts or Glasses, Hx Eye Injury, Hx Eye Prosthesis, Hx Glaucoma, Hx Legally Blind, Hx Macular Degeneration, Hx Vision Problem, Hx Deafness, Hx Hearing Aid, Hx Hearing Problem, Other Sensory Impairments Opthamlomology History: Denies: Hx Cataracts, Hx Contacts or Glasses, Hx Eye Injury, Hx Eye Prosthesis, Hx Glaucoma, Hx Legally Blind, Hx Macular Degeneration, Hx Vision Problem, Other Sensory Impairments Neurological History: Reports: Hx Dementia Denies: Hx Seizures, Hx Transient Ischemic Attacks (TIA) Psychiatric History: Denies: Hx Anxiety - Surgical History Surgery Procedure, Year, and Place: cardiac-ICD left side Infectious Disease History: No Infectious Disease History: Denies: Hx Clostridium Difficile, Hx Hepatitis, Hx Human Immunodeficiency Virus (HIV), Hx of Known/Suspected MRSA, Hx Shingles, Hx Tuberculosis, History Other Infectious Disease, Traveled Outside the [place] in Last 30 Days - Family History Known Family History: Negative: Cardiac Disease, Hypertension, Diabetes - Social History Alcohol Use: None Substance Use Type: Reports: None Smoking Status (MU): Former Smoker Type: Cigarettes Review of Systems - ROS Summary Review of Systems Summary: ROS IS LIMITED DUE TO LEVEL 5 CAVEAT - pt with dementia, AMS Negative: Fever, Chills Negative: Chest Pain Negative: Abdominal Pain All Other Systems Reviewed And Are Negative: No Physical Exam - Summary Physical Exam Summary: VITAL SIGNS: Reviewed. GENERAL: Patient is a well-developed and nourished female who is lying comfortable in the stretcher. Patient is not in any acute respiratory distress. HEAD AND FACE: No signs of trauma. No ecchymosis, hematomas or skull depressions. No sinus tenderness. EYES: PERRLA, EOMI x 2, No injected conjunctiva, no nystagmus. EARS: Hearing grossly intact. Ear canals and tympanic membranes are within normal limits. MOUTH: Oropharynx within normal limits. NECK: Supple, trachea is midline, no adenopathy, no JVD, no carotid bruit, no c- spine tenderness, neck with full ROM. CHEST: Symmetric, no tenderness at palpation LUNGS: Clear to auscultation bilaterally. No wheezing or crackles. CVS: Regular rate and rhythm, S1 and S2 present, no murmurs or gallops appreciated. ABDOMEN: Soft, non-tender. No signs of distention. No rebound no guarding, and no masses palpated. Bowel sounds are normal. EXTREMITIES: FROM in all major joints, no edema, no cyanosis or clubbing. NEURO: Alert but not oriented. No acute neurological deficits. Speech is normal and follows commands. SKIN: Dry and warm GCS: 15 Triage Information Reviewed: Yes Vital Signs On Initial Exam: Initial Vitals Temp Pulse Resp BP Pulse Ox 98.7 F 65 16 159/89 97 03/18/18 16:30 03/18/18 16:30 03/18/18 16:30 03/18/18 16:30 03/18/18 16:30 Vital Signs Reviewed: Yes Completion Of Physical Exam Limited Due To: Dementia, Altered Mental Status Diagnostics - Vital Signs Vital Signs Temp Pulse Resp BP Pulse Ox 03/18/18 16:30 98.7 F 65 16 159/89 97 - Laboratory Result Diagrams: 03/18/18 17:01 03/18/18 17:01 Lab Statement: Any lab studies that have been ordered have been reviewed, and results considered in the medical decision making process. - CT Brain CT CT Interpretation: No Acute Changes - IMPRESSION: Stable, age-appropriate chronic findings described above without CT evidence of acute intracranial abnormality. Dr. Wilkinson has reviewed this radiology report. CT Interpretation Completed By: Radiologist Altered Mental Statu Course/Dx - Course Assessment/Plan: This patient is an 87-year-old female with past medical history significant for hypertension, dyslipidemia, dementia, CHF, GERD, anemia , hypokalemia presents to the emergency room after the patient was transferred from [facility] secondary to aggressive behavior. In the emergency department the patient is alert but not oriented and she is not agitated and she seems to be calm. Blood test results without any significant abnormality except for increased BUNs 34, creatinine 1.34, possibly secondary to dehydration. TSH is 12.2. Head CT is negative for an acute pathology on chronic changes. Chest x-ray is negative for acute pathology. I am awaiting for a urinalysis to rule out a UTI and the patient will be medically clear for mental health evaluation. The patient continues to be calm and cooperative. Patient will be signed out to Dr. Sanders at shift change, pending medical clearance and subsequent mental health evaluation. - Diagnoses Provider Diagnoses: Agitation, Dementia, Chest wall pain - Provider Notifications Discussed Care Of Patient With: Fortunato Perdue Time Discussed With Above Provider: 18:45 Instructed by Provider To: Other - I discussed pt care with Dr. Perdue, psychiatrist, who wants a urinalysis to medical clear the pt for a mental health evaluation. Discharge - Sign-Out/Discharge Documenting (check all that apply): Patient Departure - Pt will be D/C home, Sign-Out Patient Signing out patient TO: Suman Sanders - pending dispo, awaiting UA and subsequent MHE - Discharge Plan Condition: Stable Disposition: ADMITTED TO [facility] - Billing Disposition and Condition Condition: STABLE Disposition: Admitted to [facility] - Attestation Statements Document Initiated by Scribe: Yes Documenting Scribe: Maya Barone Provider For Whom Scribe is Documenting (Include Credential): Jerald Wilkinson MD Scribe Attestation: Maya Conley, scribed for Jerald Wilkinson MD on 03/19/18 at 0818. Scribe Documentation Reviewed: Yes Provider Attestation: The documentation as recorded by the Maya mccracken accurately reflects the service I personally performed and the decisions made by me, Jerald Wilkinson MD Progress Note Note: [facility] was visited. Therapy notes read and reviewed. This is Livan mccracken, documenting for attending Suman Sanders MD. Patient was medically cleared for a mental health evaluation at 1999. Provider discussed case with hospitalist, Dr. Eric, and she will be admitted to the hospital with a Dx of dementia. Vital Signs: Vital Signs Temp Pulse Resp BP Pulse Ox 98.7 F 65 16 159/89 97 03/18/18 16:30 03/18/18 16:30 03/18/18 16:30 03/18/18 16:30 03/18/18 16:30 Lab Results: Laboratory Results - last 24 hr 03/18/18 03/18/18 03/18/18 17:01 17:01 19:13 WBC 5.1 RBC 4.66 Hgb 14.6 Hct 46 MCV 99 H MCH 31 MCHC 32 RDW 19 H Plt Count 154 MPV 9.2 Neut % (Auto) 72.7 Lymph % (Auto) 14.6 L [place] % (Auto) 10.7 H Eos % (Auto) 1.5 Baso % (Auto) 0.5 Absolute Neuts (auto) 3.7 Absolute Lymphs (auto) 0.8 L Absolute Monos (auto) 0.5 Absolute Eos (auto) 0.1 Absolute Basos (auto) 0 Absolute Nucleated RBC 0 Nucleated RBC % 0.1 Sodium 143 Potassium 4.6 Chloride 105 Carbon Dioxide 30 Anion Gap 8 BUN 34 H Creatinine 1.34 H Est GFR ( Amer) 45.2 Est GFR (Non-Af Amer) 37.3 BUN/Creatinine Ratio 25.4 H Glucose 83 Calcium 8.6 Total Bilirubin 1.20 H AST 30 ALT 18 Alkaline Phosphatase 172 H Total Protein 6.0 L Albumin 3.3 Globulin 2.7 Albumin/Globulin Ratio 1.2 TSH 12.02 H Urine Color Yellow Urine Appearance Clear Urine pH 6.0 Ur Specific [place] 1.015 Urine Protein 1+(30 mg/dl) A Urine Ketones Negative Urine Blood Negative Urine Nitrate Negative Urine Bilirubin Negative Urine Urobilinogen Negative Ur Leukocyte Esterase Negative Urine WBC (Auto) Trace(0-5/hpf) Urine RBC (Auto) Absent Ur Squamous Epith Cells Present A Urine Bacteria Absent Hyaline Casts Present A Urine Glucose Negative Urine Ascorbic Acid * A Salicylates < 2.50 Acetaminophen < 15 Serum Alcohol < 10
[2018-03-18 17:22] LABS: Hematocrit 46 % (35-47); Hemoglobin 14.6 g/dl (12.0-16.0); Mean Corpuscular HGB Conc 32 g/dl (31-36); Mean Corpuscular Hemoglobin 31 pg (27-31); Mean Corpuscular Volume 99 fL (80-97); Mean Platelet Volume 9.2 um3 (7.4-10.4); Platelet Count 154 10^3/ul (150-450); Red Blood Count 4.66 10^6/ul (4.00-5.40); Red Cell Distribution Width 19 % (10.5-15); White Blood Count 5.1 10^3/ul (3.5-10.8)
[2018-03-18 17:32] LABS: EGFR Non-African American 37.3 (>60)
[2018-03-18] MEDS ORDERED: NS 0.9% 1000 ML* 1,000 ML IV ONE (17:48)
--- NOTE | 2018-03-18 17:58 | RAD ---
INDICATION: "New onset aggressive behavior " COMPARISON: Most recent comparison CT is dated March 04, 2018 TECHNIQUE: Contiguous axial sections of the brain were obtained from the skull base to the vertex without contrast. FINDINGS: The ventricles, cisterns and sulci symmetrical age-appropriate involutional changes. There is mild periventricular and subcortical white matter hypoattenuation, similar in appearance to the previous CT of the brain and most consistent with chronic microvascular disease. The iglesias-white matter differentiation is adequately maintained and there is no sulcal effacement. No significant focal abnormality or mass effect is present. There is no evidence for intracranial hemorrhage. Again seen is a small subcutaneous focus of induration overlying the left frontal bone, reduced in size since the most recent CT of the brain. No significant focal osseous abnormality is present. The visualized portion of the paranasal sinuses appear clear. The mastoid air cells are well aerated bilaterally. IMPRESSION: Stable, age-appropriate chronic findings described above without CT evidence of acute intracranial abnormality.
[2018-03-18 18:42] LABS: ABS Basophils 0 10^3/ul (0-0.2); ABS Eosinophils 0.1 10^3/ul (0-0.6); ABS Lymphocytes 0.8 10^3/ul (1.0-4.8); ABS Monocytes 0.5 10^3/ul (0-0.8); ABS Neutrophils 3.7 10^3/ul (1.5-7.7); ABS Nucleated RBC 0 10^3/ul; Eosinophil % 1.5 % (0-6); Lymphocyte % 14.6 % (25-47); Nucleated Red Blood Cells % 0.1
[2018-03-18 19:26] LABS: Urine Red Blood Cell Absent (Absent); Urine White Blood Cell Trace(0-5/hpf) (Absent)
[2018-03-18 19:45] LABS: Urine Appearance Clear; Urine Blood Negative (Negative); Urine Color Yellow; Urine Ketones Negative (Negative); Urine Protein 1+(30 mg/dL) (Negative); Urine Specific Gravity 1.015 (1.010-1.030); Urine Urobilinogen Negative (Negative)
--- NOTE | 2018-03-19 00:29 | HP ---
H&P (Free Text) History and Physical: PCP: Bryan Jones MD Date/Time: 03/19/2018 0015 CC: confusion/aggression HPI: Mrs Braxton is an 87YO female HX CAD/MT/3vCABG, PAOD, HTN, HLD, hypothyroidism, LUE DVT & PE who is known to the myself from her last admission after presenting from [facility] for aggressive behavior and being refused return. Tonight she returns for the same again from [facility] who refuses her return as well as family refusing to allow return to the facility. Upon evaluation, Mrs Braxton wakes reluctantly, does not open her eyes or answer questions. She will follow requests during exam such as when asked to breath deeply, etc. She appears in no distress. There are no family members present. PMedHx CAD/MT/3vCABG chronic diastolic HF PAOD CKD 3b HTN HLD chronic BLE edema & erythema w/ intermittent weeping upper extremity DVT & PE hypothyroidism Ambulatory Orders Furosemide TAB* [Lasix TAB*] 40 mg PO DAILY 10/12/16 Levothyroxine TAB* [Synthroid 25 MCG TAB*] 25 mcg PO DAILY 10/12/16 QUEtiapine TAB* [Seroquel 25 MG TAB*] 25 mg PO BID tab 03/17/18 Atorvastatin* [Lipitor*] 40 mg PO DAILY 03/18/18 Digoxin TAB* [Lanoxin TAB*] 0.125 mg PO EVERY OTHER DAY 03/18/18 Enoxaparin(*) [Lovenox(*)] 60 mg SUBCUT DAILY 03/18/18 Famotidine TAB* [Pepcid 20 MG TAB*] 20 mg PO DAILY 03/18/18 Ferrous Gluconate TAB* [Fergon TAB*] 324 mg PO BEDTIME 03/18/18 Metoprolol Succinate XL TAB* [Toprol XL TAB*] 50 mg PO BID 03/18/18 Potassium Chlor TAB* [Potassium Chlor TAB 20 MEQ*] 20 meq PO BID 03/18/18 Allergies codeine Allergy (Verified 03/04/18 17:16) Unknown Reaction Details oxycodone Allergy (Verified 03/04/18 17:16) Unknown Reaction Details ranolazine [From Ranexa] Allergy (Verified 03/04/18 17:17) Unknown Reaction Details PSurgHx B carotid endarterectomies stent to RLE 3vCABG AICD placement appendectomy OU cataract extractions SocHx: quit smoking 1992 w/ >69 PYHX, no alcohol or recreational drugs; prior to admission to [place] 2 weeks ago lived alone at home, very supportive family , does not drive; DNR/I code status FamHx: positive for CAD, HTN, HLD ROS: as above, otherwise reviewed and all were negative vitals: Vital Signs Temp 37.1 C 03/18/18 20:25 Pulse 72 03/18/18 20:25 Resp 16 03/18/18 20:25 BP 151/94 03/18/18 20:25 Pulse Ox 97 03/18/18 20:25 Constitutional: NAD, normally developed, frail, thin elderly white female HEENM: healing L forehead hematoma, anicteric; hearing: unable to assess; oropharynx: clear, mucosa moist Neck: soft tissue: non-tender; thyroid: normal Pulmonary: clear to auscultation B, fair aeration, no accessory muscle use CV: RR/RR, normal S1S2, no carotid bruit, moderate jugular venous distention, trace B DP/PT, 2+ RLE edema Abdominal: soft, non-distended, non-tender, no rebound/guarding/rigidity, normoactive bowel sounds, no hepatosplenomegaly or masses, no costovertebral angle tenderness Musculoskeletal: general: grossly intact, non-tender Integumental: BLE with chronic ischemic redness & skin atrophy Psychiatric orientation: somnolent, oriented to person only affect: calm mood: cooperative eye contact: poor content: unreliable memory: poor responses: does not answer questions insight: poor Testing: Laboratory Results - last 24 hr 03/18/18 03/18/18 03/18/18 17:01 17:01 19:13 WBC 5.1 RBC 4.66 Hgb 14.6 Hct 46 MCV 99 H MCH 31 MCHC 32 RDW 19 H Plt Count 154 MPV 9.2 Neut % (Auto) 72.7 Lymph % (Auto) 14.6 L [place] % (Auto) 10.7 H Eos % (Auto) 1.5 Baso % (Auto) 0.5 Absolute Neuts (auto) 3.7 Absolute Lymphs (auto) 0.8 L Absolute Monos (auto) 0.5 Absolute Eos (auto) 0.1 Absolute Basos (auto) 0 Absolute Nucleated RBC 0 Nucleated RBC % 0.1 Sodium 143 Potassium 4.6 Chloride 105 Carbon Dioxide 30 Anion Gap 8 BUN 34 H Creatinine 1.34 H Est GFR ( Amer) 45.2 Est GFR (Non-Af Amer) 37.3 BUN/Creatinine Ratio 25.4 H Glucose 83 Calcium 8.6 Total Bilirubin 1.20 H AST 30 ALT 18 Alkaline Phosphatase 172 H Total Protein 6.0 L Albumin 3.3 Globulin 2.7 Albumin/Globulin Ratio 1.2 TSH 12.02 H Urine Color Yellow Urine Appearance Clear Urine pH 6.0 Ur Specific [place] 1.015 Urine Protein 1+(30 mg/dl) A Urine Ketones Negative Urine Blood Negative Urine Nitrate Negative Urine Bilirubin Negative Urine Urobilinogen Negative Ur Leukocyte Esterase Negative Urine WBC (Auto) Trace(0-5/hpf) Urine RBC (Auto) Absent Ur Squamous Epith Cells Present A Urine Bacteria Absent Hyaline Casts Present A Urine Glucose Negative Urine Ascorbic Acid * A Salicylates < 2.50 Acetaminophen < 15 Serum Alcohol < 10 CT brain WO, personally reviewed: IMPRESSION: Stable, age-appropriate chronic findings described above without CT evidencebof acute intracranial abnormality. Impression: 87F presenting with aggressive behavior from [facility], both facility and family refuse her return admitted custodially for placement DIAGNOSIS & PLAN Primary aggression ? dementia vs primary behavioral disorder : school social worker consult for placement : continue quetiapine Secondary CAD/MT/3vCABG : continue metoprolol chronic diastolic HF : continue furosemide PAOD/HLD : continue atorvastatin HTN : continue metoprolol HX upper extremity DVT & PE : continue enoxaparin hypothyroidism : continue levothyroxine GERD : continue famotidine Admission Rational: [facility] for placement DVTp: SCDs & enoxaparin SQ Code Status: DNR/I HCP: daughters
[2018-03-19] MEDS: Levothyroxine TAB* 25 MCG TAB PO SCH (05:26)
[2018-03-19] MEDS ORDERED: Ziprasidone IM INJ* 20 MG/ML VIAL IM ONE (05:42)
[2018-03-19] MEDS: QUEtiapine TAB* 25 MG PO SCH ×2 (09:55→22:09)
[2018-03-19] MEDS: Metoprolol Succinate XL TAB* 50 MG PO SCH ×2 (09:56→22:09)
[2018-03-19] MEDS: Furosemide TAB* 40 MG PO SCH (09:58)
[2018-03-19] MEDS: Atorvastatin* 40 MG TAB PO SCH (09:58)
[2018-03-19] MEDS: Famotidine TAB* 20 MG PO SCH (09:58)
[2018-03-19] MEDS: Potassium Chlor TAB* 20 MEQ TAB.ER PO SCH ×2 (10:01→22:09)
[2018-03-19] MEDS: Enoxaparin(*) 60 MG/0.6 ML SYR SUBCUT SCH (10:13)
--- NOTE | 2018-03-19 17:22 | PN ---
Hospitalist Progress Note Date of Service: 03/19/18 Pt seen and examined. 87 yo female PMH CAD/Mi/3v CABG, POAD<HTN, HLD, LVT DVT/ PE presenting from [facility] for aggressive behavior (they won't accept back ). Jail admission. TSH elevated and synthroid increased to 50mcg daily. Walked with PT today, at one point had trouble standing without 2 person assistance after reaching a sitting position on the floor.
[2018-03-19] MEDS: Digoxin TAB* 0.125 MG PO SCH (17:53)
[2018-03-19] MEDS: Ferrous Gluconate TAB* 324 MG TAB PO SCH (22:09)
[2018-03-20] MEDS: Levothyroxine TAB* 25 MCG TAB PO SCH (06:18)
[2018-03-20] MEDS: QUEtiapine TAB* 25 MG PO SCH ×2 (11:07→21:21)
[2018-03-20] MEDS: Furosemide TAB* 40 MG PO SCH ×2 (11:08→11:23)
[2018-03-20] MEDS: Potassium Chlor TAB* 20 MEQ TAB.ER PO SCH ×3 (11:08→21:21)
[2018-03-20] MEDS: Metoprolol Succinate XL TAB* 50 MG PO SCH ×3 (11:08→21:21)
[2018-03-20] MEDS: Atorvastatin* 40 MG TAB PO SCH ×2 (11:08→11:23)
[2018-03-20] MEDS: Famotidine TAB* 20 MG PO SCH ×2 (11:08→11:23)
[2018-03-20] MEDS: Enoxaparin(*) 60 MG/0.6 ML SYR SUBCUT SCH (11:14)
--- NOTE | 2018-03-20 15:24 | PN ---
Subjective Date of Service: 03/20/18 Interval History: ABC alert was called, in error apparently by psych monitor. Vitals 139/64, 59 HR , 97% on RA, Responds verbally to voice though not 100% of time, only occasionally opening eyes and follows commands but otherwise lethargic. Stood once to change. Objective Active Medications: Atorvastatin Calcium (Lipitor*) 40 mg PO DAILY [facility] Last Admin: 03/20/18 11:23 Dose: Not Given Digoxin (Lanoxin Tab*) 0.125 mg PO EVERY OTHER DAY@1700 [facility] Last Admin: 03/19/18 17:53 Dose: Not Given Enoxaparin Sodium (Lovenox(*)) 60 mg SUBCUT DAILY [facility] Last Admin: 03/20/18 11:14 Dose: 60 mg Famotidine (Pepcid Tab*) 20 mg PO DAILY [facility] Last Admin: 03/20/18 11:23 Dose: Not Given Ferrous Gluconate (Fergon Tab*) 324 mg PO BEDTIME [facility] Last Admin: 03/19/18 22:09 Dose: Not Given Furosemide (Lasix Tab*) 40 mg PO DAILY [facility] Last Admin: 03/20/18 11:23 Dose: Not Given Levothyroxine Sodium (Synthroid Tab*) 25 mcg PO DAILY@0600 [facility] Last Admin: 03/20/18 06:18 Dose: Not Given Metoprolol Succinate (Toprol Xl Tab*) 50 mg PO BID [facility] Last Admin: 03/20/18 11:16 Dose: Not Given Potassium Chloride (Klor Con Er Tab*) 20 meq PO BID [facility] Last Admin: 03/20/18 11:24 Dose: Not Given Quetiapine Fumarate (Seroquel Tab*) 25 mg PO BID [facility] Last Admin: 03/20/18 11:07 Dose: 25 mg Vital Signs - 8 hr 03/20/18 08:47 Pulse Rate 75 O2 Sat by Pulse 100 Oximetry Oxygen Devices in Use Now: None Appearance: chronically ill appearing, lying on right side in bed. Eyes: No Scleral Icterus Ears/Nose/Mouth/Throat: NL Teeth, Lips, Gums Respiratory: Symmetrical Chest Expansion and Respiratory Effort, Clear to Auscultation Abdominal: NL Sounds; No Tenderness; No Distention, No Hepatosplenomegaly Extremities: No Edema, No Clubbing, Cyanosis Skin: No Rash or Ulcers, No Nodules or Sclerosis Neurological: - - CROOK, squeezed hands. Result Diagrams: 03/20/18 16:28 03/20/18 16:28 Additional Lab and Data: Laboratory Results - last 24 hr 03/20/18 03/20/18 03/20/18 16:28 16:28 16:28 WBC 4.3 RBC 4.54 Hgb 14.5 Hct 45 MCV 98 H MCH 32 H MCHC 33 RDW 19 H Plt Count 139 L MPV 9.2 Neut % (Auto) 70.6 Lymph % (Auto) 15.1 L [place] % (Auto) 12.2 H Eos % (Auto) 1.6 Baso % (Auto) 0.5 Absolute Neuts (auto) 3.1 Absolute Lymphs (auto) 0.7 L Absolute Monos (auto) 0.5 Absolute Eos (auto) 0.1 Absolute Basos (auto) 0 Absolute Nucleated RBC 0 Nucleated RBC % 0.3 ABG pH ABG pCO2 ABG pO2 ABG HCO3 ABG O2 Saturation ABG Base Excess Sodium 145 Potassium 4.6 Chloride 108 Carbon Dioxide 28 Anion Gap 9 BUN 39 H Creatinine 1.57 H Est GFR ( Amer) 37.6 Est GFR (Non-Af Amer) 31.1 BUN/Creatinine Ratio 24.8 H Glucose 69 L Calcium 8.4 L Total Bilirubin 1.00 AST 19 ALT 13 Alkaline Phosphatase 133 H Ammonia B-Natriuretic Peptide Total Protein 4.9 L Albumin 2.7 L Globulin 2.2 Albumin/Globulin Ratio 1.2 Procalcitonin 0.3 03/20/18 03/20/18 16:28 16:45 WBC RBC Hgb Hct MCV MCH MCHC RDW Plt Count MPV Neut % (Auto) Lymph % (Auto) [place] % (Auto) Eos % (Auto) Baso % (Auto) Absolute Neuts (auto) Absolute Lymphs (auto) Absolute Monos (auto) Absolute Eos (auto) Absolute Basos (auto) Absolute Nucleated RBC Nucleated RBC % ABG pH 7.40 ABG pCO2 43 ABG pO2 63 L ABG HCO3 25.8 ABG O2 Saturation 94.1 L ABG Base Excess 1.4 Sodium Potassium Chloride Carbon Dioxide Anion Gap BUN Creatinine Est GFR ( Amer) Est GFR (Non-Af Amer) BUN/Creatinine Ratio Glucose Calcium Total Bilirubin AST ALT Alkaline Phosphatase Ammonia 35 B-Natriuretic Peptide 3621 H Total Protein Albumin Globulin Albumin/Globulin Ratio Procalcitonin Microbiology and Other Data: Microbiology 03/18/18 19:13 Urine Culture - Final Urine No Growth (<1,000 CFU/mL) Assess/Plan/Problems-Billing Assessment: 87 yo female PMH CAD/OK/CABG, LUE DVT and PE on eliqius, diastolic CHF, CKD 3, PAOD, HTN, HLD, hypothyroidism presenting with agitation (screaming at staff) and [place]. Fairly deconditioned and sleeping a lot. - Patient Problems (1) Agitated Current Visit: Yes Status: Acute Code(s): R45.1 - RESTLESSNESS AND AGITATION SNOMED Code(s): 447747614 Comment: now more lethargic. Ammonia wnl, not hypercarbic. procalcitonin wnl. continue seroquel. no e/o infection on UA. Could consider CXR. (2) Chronic diastolic CHF (congestive heart failure) Current Visit: Yes Status: Acute Code(s): I50.32 - CHRONIC DIASTOLIC ( CONGESTIVE) HEART FAILURE SNOMED Code(s): 811243018 Comment: not hypoxic. BNP 3621 down from 4480 on 03/09 weights stable. continue 40mg lasix daily po. (3) Paroxysmal A-fib Current Visit: Yes Status: Acute Code(s): I48.0 - PAROXYSMAL ATRIAL FIBRILLATION SNOMED Code(s): 840031345 Comment: likely based on medication history. last admission amiodarone was stopped. continue digoxin continue metoprolol 50mg BID. switch lovenox back to home(recently changed) eliquis. (4) CKD (chronic kidney disease) stage 3, GFR 30-59 ml/min Current Visit: Yes Status: Acute Code(s): N18.3 - CHRONIC KIDNEY DISEASE, STAGE 3 (MODERATE) SNOMED Code(s): 156853387 (5) Hypothyroidism Current Visit: No Status: Acute Code(s): E03.9 - HYPOTHYROIDISM, UNSPECIFIED SNOMED Code(s): 61084629 Comment: home dose of synthroid increased to 50mcg FT4, FT3 in AM (6) DNR (do not resuscitate) Current Visit: No Status: Chronic (7) Hx of coronary artery disease Current Visit: No Status: Chronic Priority: High Code(s): Z86.79 - PERSONAL HISTORY OF OTHER DISEASES OF THE CIRCULATORY SYSTEM SNOMED Code(s): 479788322 Comment: Continue metoprolol Status and Disposition: medicine inpatient.
[2018-03-20 16:39] LABS: Hematocrit 45 % (35-47); Hemoglobin 14.5 g/dl (12.0-16.0); Mean Corpuscular HGB Conc 33 g/dl (31-36); Mean Corpuscular Hemoglobin 32 pg (27-31); Mean Corpuscular Volume 98 fL (80-97); Mean Platelet Volume 9.2 um3 (7.4-10.4); Platelet Count 139 10^3/ul (150-450); Red Blood Count 4.54 10^6/ul (4.00-5.40); Red Cell Distribution Width 19 % (10.5-15); White Blood Count 4.3 10^3/ul (3.5-10.8)
[2018-03-20 16:59] LABS: EGFR Non-African American 31.1 (>60)
[2018-03-20 17:33] LABS: ABS Basophils 0 10^3/ul (0-0.2); ABS Eosinophils 0.1 10^3/ul (0-0.6); ABS Lymphocytes 0.7 10^3/ul (1.0-4.8); ABS Monocytes 0.5 10^3/ul (0-0.8); ABS Neutrophils 3.1 10^3/ul (1.5-7.7); ABS Nucleated RBC 0 10^3/ul; Eosinophil % 1.6 % (0-6); Lymphocyte % 15.1 % (25-47); Nucleated Red Blood Cells % 0.3
[2018-03-20] MEDS: Ferrous Gluconate TAB* 324 MG TAB PO SCH (21:21)
[2018-03-21] MEDS: Levothyroxine TAB* 50 MCG TAB PO SCH (08:37)
[2018-03-21] MEDS: Potassium Chlor TAB* 20 MEQ TAB.ER PO SCH ×2 (08:38→21:51)
[2018-03-21] MEDS: QUEtiapine TAB* 25 MG PO SCH ×2 (08:39→21:51)
[2018-03-21] MEDS: Metoprolol Succinate XL TAB* 50 MG PO SCH ×2 (08:39→21:51)
[2018-03-21] MEDS: Furosemide TAB* 40 MG PO SCH (08:39)
[2018-03-21] MEDS: Apixaban* 2.5 MG TAB PO SCH ×2 (08:39→21:51)
[2018-03-21] MEDS: Atorvastatin* 40 MG TAB PO SCH (08:39)
[2018-03-21] MEDS: Famotidine TAB* 20 MG PO SCH (08:39)
--- NOTE | 2018-03-21 14:03 | PN ---
Subjective Date of Service: 03/21/18 Interval History: Ms. Braxton is eating lunch and feels good. She denies any pain and is enjoying her meal. Her daughter Betty and her are here visiting and she is enjoying their visit. Betty thinks her mom seems like herself today. Her nurse David reports that she has been pleasant, took her medications this morning, and has been walking around and cooperative. Objective Active Medications: Apixaban (Eliquis) 2.5 mg PO BID [facility] Last Admin: 03/21/18 08:39 Dose: 2.5 mg Atorvastatin Calcium (Lipitor*) 40 mg PO DAILY [facility] Last Admin: 03/21/18 08:39 Dose: 40 mg Digoxin (Lanoxin Tab*) 0.125 mg PO EVERY OTHER DAY@1700 [facility] Last Admin: 03/19/18 17:53 Dose: Not Given Famotidine (Pepcid Tab*) 20 mg PO DAILY [facility] Last Admin: 03/21/18 08:39 Dose: 20 mg Ferrous Gluconate (Fergon Tab*) 324 mg PO BEDTIME [facility] Last Admin: 03/20/18 21:21 Dose: 324 mg Furosemide (Lasix Tab*) 40 mg PO DAILY [facility] Last Admin: 03/21/18 08:39 Dose: 40 mg Levothyroxine Sodium (Synthroid Tab*) 50 mcg PO DAILY@0600 [facility] Last Admin: 03/21/18 08:37 Dose: Not Given Melatonin (Melatonin) 3 mg PO QPM [facility]; Protocol Metoprolol Succinate (Toprol Xl Tab*) 50 mg PO BID [facility] Last Admin: 03/21/18 08:39 Dose: 50 mg Potassium Chloride (Klor Con Er Tab*) 20 meq PO BID [facility] Last Admin: 03/21/18 08:38 Dose: 20 meq Quetiapine Fumarate (Seroquel Tab*) 25 mg PO BID [facility] Last Admin: 03/21/18 08:39 Dose: 25 mg Vital Signs - 8 hr 03/21/18 03/21/18 07:36 11:23 Temperature 96.8 F Pulse Rate 84 Respiratory 18 16 Rate Blood Pressure 140/82 (mmHg) O2 Sat by Pulse 94 Oximetry Oxygen Devices in Use Now: None Appearance: alert, well appearing sitting up eating comfortably. answers questions appropriately but names her daughter and son-in-law as her sister and brother. Eyes: - - conjunctival injection Neck: NL Appearance and Movements; NL JVP Respiratory: Symmetrical Chest Expansion and Respiratory Effort Cardiovascular: NL Sounds; No Murmurs; No JVD Abdominal: NL Sounds; No Tenderness; No Distention Lymphatic: No Cervical Adenopathy Extremities: - - legs are erythematous, feet are tender to the touch, pulses are 1+ Result Diagrams: 03/20/18 16:28 03/20/18 16:28 Additional Lab and Data: Laboratory Results - last 24 hr 03/20/18 03/20/18 03/20/18 16:28 16:28 16:28 WBC 4.3 RBC 4.54 Hgb 14.5 Hct 45 MCV 98 H MCH 32 H MCHC 33 RDW 19 H Plt Count 139 L MPV 9.2 Neut % (Auto) 70.6 Lymph % (Auto) 15.1 L [place] % (Auto) 12.2 H Eos % (Auto) 1.6 Baso % (Auto) 0.5 Absolute Neuts (auto) 3.1 Absolute Lymphs (auto) 0.7 L Absolute Monos (auto) 0.5 Absolute Eos (auto) 0.1 Absolute Basos (auto) 0 Absolute Nucleated RBC 0 Nucleated RBC % 0.3 ABG pH ABG pCO2 ABG pO2 ABG HCO3 ABG O2 Saturation ABG Base Excess Sodium 145 Potassium 4.6 Chloride 108 Carbon Dioxide 28 Anion Gap 9 BUN 39 H Creatinine 1.57 H Est GFR ( Amer) 37.6 Est GFR (Non-Af Amer) 31.1 BUN/Creatinine Ratio 24.8 H Glucose 69 L Calcium 8.4 L Total Bilirubin 1.00 AST 19 ALT 13 Alkaline Phosphatase 133 H Ammonia B-Natriuretic Peptide Total Protein 4.9 L Albumin 2.7 L Globulin 2.2 Albumin/Globulin Ratio 1.2 Procalcitonin 0.3 03/20/18 03/20/18 16:28 16:45 WBC RBC Hgb Hct MCV MCH MCHC RDW Plt Count MPV Neut % (Auto) Lymph % (Auto) [place] % (Auto) Eos % (Auto) Baso % (Auto) Absolute Neuts (auto) Absolute Lymphs (auto) Absolute Monos (auto) Absolute Eos (auto) Absolute Basos (auto) Absolute Nucleated RBC Nucleated RBC % ABG pH 7.40 ABG pCO2 43 ABG pO2 63 L ABG HCO3 25.8 ABG O2 Saturation 94.1 L ABG Base Excess 1.4 Sodium Potassium Chloride Carbon Dioxide Anion Gap BUN Creatinine Est GFR ( Amer) Est GFR (Non-Af Amer) BUN/Creatinine Ratio Glucose Calcium Total Bilirubin AST ALT Alkaline Phosphatase Ammonia 35 B-Natriuretic Peptide 3621 H Total Protein Albumin Globulin Albumin/Globulin Ratio Procalcitonin Microbiology and Other Data: Microbiology 03/18/18 19:13 Urine Culture - Final Urine No Growth (<1,000 CFU/mL) Assess/Plan/Problems-Billing Assessment: 87 yo female PMH CAD/RI/CABG, 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 - Patient Problems (1) Agitated Current Visit: Yes Status: Acute Code(s): R45.1 - RESTLESSNESS AND AGITATION SNOMED Code(s): 456535754 Comment: This seems to be a reflection of dementia with behavioral disturbance--no infectious or metabolic etiology to explain her agitation at [place]; I suspect the changing environments has been detrimental to her as she has been back and forth from the hospital and SNF multiple times over the past two months. Seroquel was started at last admission based on psych recommendations and we can titrate the dose, however her RN reports that she falls asleep after getting the morning dose. I discussed her dementia at length with her daughter Betty in person and her daughter Emely over the phone and emphasized that pharmacotherapy options are somewhat limited in dementia and they agree with increasing behavioral therapy and familiar things and settings and agree to spend as much time with her as they can. I also wonder if she is having pain from her PVD and is unable to communicate it--her feet and legs are quite sensitive. I'll start her on standing tylenol. Ideally we'll be able to place her in a dementia unit, and social work is working on this. (2) CKD (chronic kidney disease) stage 3, GFR 30-59 ml/min Current Visit: Yes Status: Acute Code(s): N18.3 - CHRONIC KIDNEY DISEASE, STAGE 3 (MODERATE) SNOMED Code(s): 346924196 Comment: at baseline (3) Chronic diastolic CHF (congestive heart failure) Current Visit: Yes Status: Acute Code(s): I50.32 - CHRONIC DIASTOLIC ( CONGESTIVE) HEART FAILURE SNOMED Code(s): 326003301 Comment: euvolemic continue 40mg lasix daily po. (4) Hypothyroidism Current Visit: No Status: Acute Code(s): E03.9 - HYPOTHYROIDISM, UNSPECIFIED SNOMED Code(s): 35080517 Comment: home dose of synthroid increased to 50mcg (5) PVD (peripheral vascular disease) Current Visit: No Status: Acute Priority: High Code(s): I73.9 - PERIPHERAL VASCULAR DISEASE, UNSPECIFIED SNOMED Code(s): 926159158 Comment: start standing tylenol as above she follows with vascular surgery (6) DNR (do not resuscitate) Current Visit: No Status: Chronic
[2018-03-21] MEDS: Digoxin TAB* 0.125 MG PO SCH (17:59)
[2018-03-21] MEDS: Acetaminophen TAB* 325 MG PO SCH ×2 (21:51→22:45)
[2018-03-21] MEDS: Melatonin 3 MG TAB PO SCH (21:51)
[2018-03-21] MEDS: Ferrous Gluconate TAB* 324 MG TAB PO SCH (22:45)
[2018-03-22] MEDS: Levothyroxine TAB* 50 MCG TAB PO SCH (07:14)
--- NOTE | 2018-03-22 08:29 | PN ---
Subjective Date of Service: 03/22/18 Interval History: Per report, patient awake all night. Did not require any anti-psychotic medication. Was not combative but sitting in chair and refusing to go to bed. Finally got into bed about an hour ago. Patient wakes to tactile stim stating she is sleeping. Limited ROS due to her fatigue and not being cooperative Objective Active Medications: Acetaminophen (Tylenol Tab*) 650 mg PO TID REPLACED BY [facility] Last Admin: 03/21/18 22:45 Dose: 650 mg Apixaban (Eliquis) 2.5 mg PO BID [facility] Last Admin: 03/21/18 21:51 Dose: 2.5 mg Atorvastatin Calcium (Lipitor*) 40 mg PO DAILY [facility] Last Admin: 03/21/18 08:39 Dose: 40 mg Digoxin (Lanoxin Tab*) 0.125 mg PO EVERY OTHER DAY@1700 [facility] Last Admin: 03/21/18 17:59 Dose: 0.125 mg Famotidine (Pepcid Tab*) 20 mg PO DAILY [facility] Last Admin: 03/21/18 08:39 Dose: 20 mg Ferrous Gluconate (Fergon Tab*) 324 mg PO BEDTIME REPLAC[facility] Last Admin: 03/21/18 22:45 Dose: 324 mg Furosemide (Lasix Tab*) 40 mg PO DAILY [facility] Last Admin: 03/21/18 08:39 Dose: 40 mg Levothyroxine Sodium (Synthroid Tab*) 50 mcg PO DAILY@0600 [facility] Last Admin: 03/22/18 07:14 Dose: Not Given Melatonin (Melatonin) 3 mg PO BEDTIME [facility]; Protocol Last Admin: 03/21/18 21:51 Dose: 3 mg Metoprolol Succinate (Toprol Xl Tab*) 50 mg PO BID [facility] Last Admin: 03/21/18 21:51 Dose: 50 mg Potassium Chloride (Klor Con Er Tab*) 20 meq PO BID [facility] Last Admin: 03/21/18 21:51 Dose: 20 meq Quetiapine Fumarate (Seroquel Tab*) 25 mg PO BID [facility] Last Admin: 03/21/18 21:51 Dose: 25 mg Vital Signs - 8 hr 03/22/18 03/22/18 06:18 07:20 Temperature 97.5 F 97.6 F Pulse Rate 84 86 Respiratory 18 25 Rate Blood Pressure 169/91 153/101 (mmHg) O2 Sat by Pulse 99 90 Oximetry Oxygen Devices in Use Now: None Appearance: Sleeping but wakes to tactile stim Ears/Nose/Mouth/Throat: Mucous Membranes Moist Neck: Trachea Midline Respiratory: Symmetrical Chest Expansion and Respiratory Effort, Clear to Percussion Cardiovascular: RRR, - - 2/6 systolic murmur Abdominal: NL Sounds; No Tenderness; No Distention, No Hepatosplenomegaly Extremities: - Neurological: - - AAO x 1 - oriented to self only. Spontaneous movement of all ext. No focal findings Result Diagrams: 03/20/18 16:28 03/22/18 09:34 Additional Lab and Data: Laboratory Results - last 24 hr 03/20/18 03/20/18 03/20/18 16:28 16:28 16:28 WBC 4.3 RBC 4.54 Hgb 14.5 Hct 45 MCV 98 H MCH 32 H MCHC 33 RDW 19 H Plt Count 139 L MPV 9.2 Neut % (Auto) 70.6 Lymph % (Auto) 15.1 L [place] % (Auto) 12.2 H Eos % (Auto) 1.6 Baso % (Auto) 0.5 Absolute Neuts (auto) 3.1 Absolute Lymphs (auto) 0.7 L Absolute Monos (auto) 0.5 Absolute Eos (auto) 0.1 Absolute Basos (auto) 0 Absolute Nucleated RBC 0 Nucleated RBC % 0.3 ABG pH ABG pCO2 ABG pO2 ABG HCO3 ABG O2 Saturation ABG Base Excess Sodium 145 Potassium 4.6 Chloride 108 Carbon Dioxide 28 Anion Gap 9 BUN 39 H Creatinine 1.57 H Est GFR ( Amer) 37.6 Est GFR (Non-Af Amer) 31.1 BUN/Creatinine Ratio 24.8 H Glucose 69 L Calcium 8.4 L Total Bilirubin 1.00 AST 19 ALT 13 Alkaline Phosphatase 133 H Ammonia B-Natriuretic Peptide Total Protein 4.9 L Albumin 2.7 L Globulin 2.2 Albumin/Globulin Ratio 1.2 Procalcitonin 0.3 03/20/18 03/20/18 16:28 16:45 WBC RBC Hgb Hct MCV MCH MCHC RDW Plt Count MPV Neut % (Auto) Lymph % (Auto) [place] % (Auto) Eos % (Auto) Baso % (Auto) Absolute Neuts (auto) Absolute Lymphs (auto) Absolute Monos (auto) Absolute Eos (auto) Absolute Basos (auto) Absolute Nucleated RBC Nucleated RBC % ABG pH 7.40 ABG pCO2 43 ABG pO2 63 L ABG HCO3 25.8 ABG O2 Saturation 94.1 L ABG Base Excess 1.4 Sodium Potassium Chloride Carbon Dioxide Anion Gap BUN Creatinine Est GFR ( Amer) Est GFR (Non-Af Amer) BUN/Creatinine Ratio Glucose Calcium Total Bilirubin AST ALT Alkaline Phosphatase Ammonia 35 B-Natriuretic Peptide 3621 H Total Protein Albumin Globulin Albumin/Globulin Ratio Procalcitonin Microbiology and Other Data: Microbiology 03/18/18 19:13 Urine Culture - Final Urine No Growth (<1,000 CFU/mL) Assess/Plan/Problems-Billing Assessment: 87 yo female PMH CAD/ME/CABG, 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. - Patient Problems (1) Agitated Current Visit: Yes Status: Acute Code(s): R45.1 - RESTLESSNESS AND AGITATION SNOMED Code(s): 778534115 Comment: A. Dementia with behavioral disturbance. On seroquel. Was awake all night long, refusing to go to bed. Not combative. Now sleeping. Plan Will change her seroquel to 50 mg QHS from BID dose Will check B12 and Digoxin level as well (2) CKD (chronic kidney disease) stage 3, GFR 30-59 ml/min Current Visit: Yes Status: Acute Code(s): N18.3 - CHRONIC KIDNEY DISEASE, STAGE 3 (MODERATE) SNOMED Code(s): 146502164 Comment: at baseline (3) Chronic diastolic CHF (congestive heart failure) Current Visit: Yes Status: Acute Code(s): I50.32 - CHRONIC DIASTOLIC ( CONGESTIVE) HEART FAILURE SNOMED Code(s): 999667934 Comment: BUN/Cr are both rising as well as her K Unclear how much PO she is taking in. Plan Hold Lasix and K for now Check BMP this AM Check I/Os (4) Paroxysmal A-fib Current Visit: Yes Status: Acute Code(s): I48.0 - PAROXYSMAL ATRIAL FIBRILLATION SNOMED Code(s): 745611527 Comment: A. Appears to be in sinus rhythm Concern about her age, renal function and her dementia that anticoagulation risk outweighs the benefit. Plan Will check EKG Will attempt to follow up with daugther to discuss this further (unclear when her PE was) Continue metoprolol and Dig (pending level) (5) Hypothyroidism Current Visit: No Status: Acute Code(s): E03.9 - HYPOTHYROIDISM, UNSPECIFIED SNOMED Code(s): 37528127 Comment: home dose of synthroid increased to 50mcg (6) History of deep venous thrombosis or pulmonary embolus Current Visit: No Status: Chronic Code(s): TQA1821 - SNOMED Code(s): 618960657 Comment: Doppler in 03/11/18 did not show evidence of a dvt. Cannot find other studies as to when her DVT or PE was. Plan Will continue eliquis for now but need to discuss with nicolether and explore further if anticoagulation is even indictated. (7) Hx of coronary artery disease Current Visit: No Status: Chronic Priority: High Code(s): Z86.79 - PERSONAL HISTORY OF OTHER DISEASES OF THE CIRCULATORY SYSTEM SNOMED Code(s): 267875596 Comment: Continue metoprolol (8) DVT prophylaxis Current Visit: No Status: Acute Priority: High Code(s): DDD7587 - SNOMED Code(s): 281050950 Comment: On Eliquis (9) DNR (do not resuscitate) Current Visit: No Status: Chronic Status and Disposition: medicine inpatient. Awaiting placement
[2018-03-22] MEDS: Atorvastatin* 40 MG TAB PO SCH (10:51)
[2018-03-22] MEDS: Apixaban* 2.5 MG TAB PO SCH ×2 (10:51→21:19)
[2018-03-22] MEDS: Acetaminophen TAB* 325 MG PO SCH ×3 (10:51→21:21)
[2018-03-22 10:52] LABS: EGFR Non-African American 32.8 (>60)
[2018-03-22] MEDS: Famotidine TAB* 20 MG PO SCH (10:52)
[2018-03-22] MEDS: Metoprolol Succinate XL TAB* 50 MG PO SCH ×2 (10:52→21:20)
[2018-03-22] MEDS: QUEtiapine TAB* 25 MG PO SCH (21:18)
[2018-03-22] MEDS: Ferrous Gluconate TAB* 324 MG TAB PO SCH (21:21)
[2018-03-22] MEDS: Melatonin 3 MG TAB PO SCH (21:21)
--- NOTE | 2018-03-23 10:33 | PN ---
Subjective Date of Service: 03/23/18 Interval History: HOSPITALIST PROGRESS NOTE Patient seen and examined at bedside. Care reviewed and d/w April Kerr RN. She's sleeping, but easily arousable. C/o the cold. Family History: Unchanged from Admission Social History: Unchanged from Admission Past Medical History: Unchanged from Admission Objective Active Medications: Acetaminophen (Tylenol Tab*) 650 mg PO TID [facility] Last Admin: 03/22/18 21:21 Dose: 650 mg Apixaban (Eliquis) 2.5 mg PO BID [facility] Last Admin: 03/22/18 21:19 Dose: 2.5 mg Atorvastatin Calcium (Lipitor*) 40 mg PO DAILY [facility] Last Admin: 03/22/18 10:51 Dose: 40 mg Famotidine (Pepcid Tab*) 20 mg PO DAILY [facility] Last Admin: 03/22/18 10:52 Dose: 20 mg Ferrous Gluconate (Fergon Tab*) 324 mg PO BEDTIME [facility] Last Admin: 03/22/18 21:21 Dose: 324 mg Levothyroxine Sodium (Synthroid Tab*) 50 mcg PO DAILY@0600 [facility] Last Admin: 03/22/18 07:14 Dose: Not Given Melatonin (Melatonin) 3 mg PO BEDTIME [facility]; Protocol Last Admin: 03/22/18 21:21 Dose: 3 mg Metoprolol Succinate (Toprol Xl Tab*) 50 mg PO BID [facility] Last Admin: 03/22/18 21:20 Dose: 50 mg Quetiapine Fumarate (Seroquel Tab*) 50 mg PO BEDTIME [facility] Last Admin: 03/22/18 21:18 Dose: 50 mg Vital Signs - 8 hr 03/23/18 03:40 Temperature 97.3 F Pulse Rate 59 Respiratory 16 Rate Blood Pressure 158/88 (mmHg) O2 Sat by Pulse 96 Oximetry Oxygen Devices in Use Now: None Appearance: Elderly lady lying in bed in NAD. 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 - Patient Problems (1) Agitated Comment: - Dementia with behavioral disturbance - doing better with Seroquel 50 mg QHS - slept the whole night, was cooperative this AM. [place] cold and requested to return to bed. (2) CKD (chronic kidney disease) stage 3, GFR 30-59 ml/min Comment: - At baseline. (3) Chronic diastolic CHF (congestive heart failure) Comment: - Stable. - Furosemide lower dose as creatinine was trending up. (4) Paroxysmal A-fib Comment: - Continue metoprolol, digoxin, and Eliquis. (5) Hypothyroidism Comment: - TSH 12 and Free T3 1.9 - home dose of Levothyroxine was increased from 25 to 50mcg. - Will need TFTs in 4 weeks. (6) DVT prophylaxis Comment: - Eliquis. (7) DNR (do not resuscitate) Status and Disposition: Awaiting placement.
[2018-03-23] MEDS: Famotidine TAB* 20 MG PO SCH (11:17)
[2018-03-23] MEDS: Metoprolol Succinate XL TAB* 50 MG PO SCH ×2 (11:17→20:20)
[2018-03-23] MEDS: Apixaban* 2.5 MG TAB PO SCH ×2 (11:17→20:20)
[2018-03-23] MEDS: Atorvastatin* 40 MG TAB PO SCH (11:17)
[2018-03-23] MEDS: Levothyroxine TAB* 50 MCG TAB PO SCH (11:17)
[2018-03-23] MEDS: Acetaminophen TAB* 325 MG PO SCH ×3 (11:18→20:21)
[2018-03-23] MEDS: Ferrous Gluconate TAB* 324 MG TAB PO SCH (20:20)
[2018-03-23] MEDS: QUEtiapine TAB* 25 MG PO SCH (20:20)
[2018-03-23] MEDS: Melatonin 3 MG TAB PO SCH (20:21)
[2018-03-24] MEDS ORDERED: Ziprasidone IM INJ* 20 MG/ML VIAL IM ONE (01:12)
[2018-03-24] MEDS: Metoprolol Succinate XL TAB* 50 MG PO SCH ×2 (10:58→22:22)
[2018-03-24] MEDS: Levothyroxine TAB* 50 MCG TAB PO SCH (10:58)
[2018-03-24] MEDS: Atorvastatin* 40 MG TAB PO SCH (10:58)
[2018-03-24] MEDS: Apixaban* 2.5 MG TAB PO SCH ×2 (10:58→22:23)
[2018-03-24] MEDS: Acetaminophen TAB* 325 MG PO SCH ×3 (10:58→22:22)
[2018-03-24] MEDS: Famotidine TAB* 20 MG PO SCH (10:58)
--- NOTE | 2018-03-24 13:10 | CONSULT ---
Identification - Patient Identification Reason for Psychiatric Consultation: Violent Behavior -: Patient is a 87 year old, F admitted on 03/19/18. - MHU Identification Employment Status: Disabled Hx Psychiatric Hospitalization: No History - Objective HPI: Psychiatry is asked to re-evaluate Ms. Braxton after she returns to the hospital from her residential with continued agitation and aggressive behavior in that setting. Please see my dictated consultation report from March 13 for further history. Essentially, the patient was started on quetiapine 12.5mg PO BID and this was increased to 25mg PO BID and she was released back to [place]. At this time, [place] will no longer accept her back because of safety concerns. Hospital notes indicate that she was agitated again early this morning, attempted to hurt staff and required prn IM ziprasidone to recompensate her. On exam she is friendly and confused, having no apparent memory of her behaviors early this morning. Exam Appearance: Thin Framed Hygiene: Normal Grooming: Fairly Well Kept Psychomotor Activities: Normal Exhibits Abnormal Movement: No Attitude and Relatedness: Superficially Cooperative Eye Contact: Poor - Speech Quality: Unpressured Latencies: Long Quantity: Terse Patient's Decription of Mood: "Okay" Observed Affect: Fair Affect Consistent with: Euthymia Patient's Thought Process: Disorganized, Impoverished Thought Content: No Passive Wish, No Suicidal Planning, No Homicidal Ideation, No Paranoid Ideation Experiencing Hallucinations: No, Sensorium is Clear Type of Hallucinations: Visual: No, Auditory: No, Command: No Level of Consciousness: Alert Orientation: No Intact, No Orientated to Time, No Orientated to Place, No Orientated to Person Impulse Control: Poor Insight and Judgement: Impaired Impression - Impression Clinical Impression: 87 y.o. , white female with a history of dementia returns to the hospital one following most recent discharge with continued symptoms of behavioral agitation and violence. Inpatient DSM-V Dx: R41.9 Merits Inpatient Hospitalization: Yes Problem List - MHU Problems Type of Problem: Impulse Control Status of Problem: Active Plan - Treatment Plan Treatment Plan: The patient was readmitted to the hospital and her quetiapine was changed from 25mg PO BID to 50mg PO qhs. She continues to be symptomatic. I will further increase quetiapine to 50mg PO BID at this time. She would benefit from hospitalization in an acute geriatric psychiatry [place]. Psychiatry will continue to follow. Continued Medication Management: Continue Outpt Medication Medications: Current Medications Acetaminophen (Tylenol Tab*) 650 mg PO TID [facility] Last Admin: 03/24/18 10:58 Dose: 650 mg Apixaban (Eliquis) 2.5 mg PO BID [facility] Last Admin: 03/24/18 10:58 Dose: 2.5 mg Atorvastatin Calcium (Lipitor*) 40 mg PO DAILY [facility] Last Admin: 03/24/18 10:58 Dose: 40 mg Famotidine (Pepcid Tab*) 20 mg PO DAILY [facility] Last Admin: 03/24/18 10:58 Dose: 20 mg Ferrous Gluconate (Fergon Tab*) 324 mg PO BEDTIME [facility] Last Admin: 03/23/18 20:20 Dose: 324 mg Levothyroxine Sodium (Synthroid Tab*) 50 mcg PO DAILY@0600 [facility] Last Admin: 03/24/18 10:58 Dose: 50 mcg Melatonin (Melatonin) 3 mg PO BEDTIME [facility]; Protocol Last Admin: 03/23/18 20:21 Dose: 3 mg Metoprolol Succinate (Toprol Xl Tab*) 50 mg PO BID [facility] Last Admin: 03/24/18 10:58 Dose: 50 mg - Discharge Plan Discharge Plan: Consider Longer Term Tx
[2018-03-24] MEDS: QUEtiapine TAB* 25 MG PO SCH (22:23)
[2018-03-24] MEDS: Ferrous Gluconate TAB* 324 MG TAB PO SCH (22:23)
[2018-03-24] MEDS: Melatonin 3 MG TAB PO SCH (22:24)
[2018-03-25] MEDS ORDERED: Ziprasidone IM INJ* 20 MG/ML VIAL IM ONE (05:02)
[2018-03-25] MEDS: Levothyroxine TAB* 50 MCG TAB PO SCH (05:51)
[2018-03-25] MEDS: Apixaban* 2.5 MG TAB PO SCH ×2 (08:03→20:05)
[2018-03-25] MEDS: Acetaminophen TAB* 325 MG PO SCH ×3 (08:05→20:05)
[2018-03-25] MEDS: Famotidine TAB* 20 MG PO SCH (08:05)
[2018-03-25] MEDS: QUEtiapine TAB* 25 MG PO SCH ×2 (08:09→19:31)
[2018-03-25] MEDS: Atorvastatin* 40 MG TAB PO SCH (08:09)
[2018-03-25] MEDS: Metoprolol Succinate XL TAB* 50 MG PO SCH ×2 (08:11→20:05)
[2018-03-25] MEDS ORDERED: amLODIPine TAB* 5 MG PO ONE (09:24)
[2018-03-25] MEDS: Melatonin 3 MG TAB PO SCH (20:04)
[2018-03-25] MEDS: Ferrous Gluconate TAB* 324 MG TAB PO SCH (20:05)
[2018-03-26] MEDS: Levothyroxine TAB* 50 MCG TAB PO SCH (06:07)
[2018-03-26] MEDS: Famotidine TAB* 20 MG PO SCH (10:24)
[2018-03-26] MEDS: Apixaban* 2.5 MG TAB PO SCH (10:24)
[2018-03-26] MEDS: Acetaminophen TAB* 325 MG PO SCH ×3 (10:24→20:58)
[2018-03-26] MEDS: Atorvastatin* 40 MG TAB PO SCH (10:24)
[2018-03-26] MEDS: Furosemide TAB* 20 MG PO SCH (10:25)
[2018-03-26] MEDS: Metoprolol Succinate XL TAB* 50 MG PO SCH ×2 (10:25→20:56)
[2018-03-26] MEDS: QUEtiapine TAB* 25 MG PO SCH ×2 (10:25→20:54)
--- NOTE | 2018-03-26 14:04 | PN ---
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 His impression is the patient may have antiphospholipid antibody syndrome and as she failed Warfarin and Eliquis in the past, he would recommend nursing home anticoagulation with Lovenox 1mg/kg/day (renal dose) nursing home, as she is at great risk for further clots.
--- NOTE | 2018-03-26 14:38 | CONSULT ---
Identification - Patient Identification Reason for Psychiatric Consultation: Violent Behavior -: Patient is a 87 year old, F admitted on 03/19/18. - MHU Identification Employment Status: Disabled Hx Psychiatric Hospitalization: No History - Objective HPI: Irlanda has been cooperative and good-natured since early yesterday. She does demonstrate mild sedation, likely from quetiapine morning administration, however, this is less pronounced than yesterday. She has no complaints. Exam Appearance: Thin Framed Hygiene: Normal Grooming: Fairly Well Kept Psychomotor Activities: Normal Exhibits Abnormal Movement: No Attitude and Relatedness: Superficially Cooperative Eye Contact: Poor - Speech Quality: Unpressured Latencies: Long Quantity: Terse Patient's Decription of Mood: "Okay" Observed Affect: Fair Affect Consistent with: Euthymia Patient's Thought Process: Disorganized, Impoverished Thought Content: No Passive Wish, No Suicidal Planning, No Homicidal Ideation, No Paranoid Ideation Experiencing Hallucinations: No, Sensorium is Clear Type of Hallucinations: Visual: No, Auditory: No, Command: No Level of Consciousness: Alert Orientation: No Intact, No Orientated to Time, No Orientated to Place, No Orientated to Person Impulse Control: Poor Insight and Judgement: Impaired Impression - Impression Clinical Impression: 87 y.o. , white female with a history of dementia returns to the hospital one following most recent discharge with continued symptoms of behavioral agitation and violence. Inpatient DSM-V Dx: R41.9 Merits Inpatient Hospitalization: No Problem List - MHU Problems Type of Problem: Impulse Control Status of Problem: Active Plan - Treatment Plan Treatment Plan: The patient was readmitted to the hospital and her quetiapine was changed from 25mg PO BID to 50mg PO BID. She appears a little better today. Psychiatry will continue to follow. Continued Medication Management: Continue Outpt Medication Medications: Current Medications Acetaminophen (Tylenol Tab*) 650 mg PO TID [facility] Last Admin: 03/26/18 10:24 Dose: 650 mg Atorvastatin Calcium (Lipitor*) 40 mg PO DAILY [facility] Last Admin: 03/26/18 10:24 Dose: 40 mg Enoxaparin Sodium (Lovenox(*)) 60 mg SUBCUT Q24H [facility] Famotidine (Pepcid Tab*) 20 mg PO DAILY [facility] Last Admin: 03/26/18 10:24 Dose: 20 mg Ferrous Gluconate (Fergon Tab*) 324 mg PO BEDTIME [facility] Last Admin: 03/25/18 20:05 Dose: 324 mg Furosemide (Lasix Tab*) 20 mg PO DAILY [facility] Last Admin: 03/26/18 10:25 Dose: 20 mg Levothyroxine Sodium (Synthroid Tab*) 50 mcg PO DAILY@0600 [facility] Last Admin: 03/26/18 06:07 Dose: 50 mcg Melatonin (Melatonin) 3 mg PO BEDTIME [facility]; Protocol Last Admin: 03/25/18 20:04 Dose: 3 mg Metoprolol Succinate (Toprol Xl Tab*) 50 mg PO BID [facility] Last Admin: 03/26/18 10:25 Dose: 50 mg Quetiapine Fumarate (Seroquel Tab*) 50 mg PO BID [facility] Last Admin: 03/26/18 10:25 Dose: 50 mg
[2018-03-26] MEDS: Melatonin 3 MG TAB PO SCH (20:55)
[2018-03-26] MEDS: Ferrous Gluconate TAB* 324 MG TAB PO SCH (20:57)
[2018-03-26] MEDS: Enoxaparin(*) 60 MG/0.6 ML SYR SUBCUT SCH (21:00)
[2018-03-27] MEDS: Levothyroxine TAB* 50 MCG TAB PO SCH ×3 (05:47→09:44)
[2018-03-27] MEDS: Acetaminophen TAB* 325 MG PO SCH ×3 (09:14→21:16)
[2018-03-27] MEDS: Famotidine TAB* 20 MG PO SCH (09:15)
[2018-03-27] MEDS: Metoprolol Succinate XL TAB* 50 MG PO SCH ×2 (09:15→21:11)
[2018-03-27] MEDS: Atorvastatin* 40 MG TAB PO SCH (09:15)
[2018-03-27] MEDS: Furosemide TAB* 20 MG PO SCH (09:15)
[2018-03-27] MEDS: QUEtiapine TAB* 25 MG PO SCH ×2 (09:16→21:12)
--- NOTE | 2018-03-27 15:31 | CONSULT ---
Identification - Patient Identification Reason for Psychiatric Consultation: Violent Behavior -: Patient is a 87 year old, F admitted on 03/19/18. - MHU Identification Employment Status: Disabled Hx Psychiatric Hospitalization: No History - Objective HPI: Irlanda has been cooperative and good-natured for the past two days. She is tolerating quetiapine well, with the exception of mild daytime sedation. She has not required recent IM ziprasidone. On exam she is calm and cooperative, albeit confused. Exam Appearance: Thin Framed Hygiene: Normal Grooming: Fairly Well Kept Psychomotor Activities: Normal Exhibits Abnormal Movement: No Attitude and Relatedness: Superficially Cooperative Eye Contact: Poor - Speech Quality: Unpressured Latencies: Long Quantity: Terse Patient's Decription of Mood: "Okay" Observed Affect: Fair Affect Consistent with: Euthymia Patient's Thought Process: Disorganized, Impoverished Thought Content: No Passive Wish, No Suicidal Planning, No Homicidal Ideation, No Paranoid Ideation Experiencing Hallucinations: No, Sensorium is Clear Type of Hallucinations: Visual: No, Auditory: No, Command: No Level of Consciousness: Alert Orientation: No Intact, No Orientated to Time, No Orientated to Place, No Orientated to Person Impulse Control: Poor Insight and Judgement: Impaired Impression - Impression Clinical Impression: 87 y.o. , white female with a history of dementia returns to the hospital one following most recent discharge with continued symptoms of behavioral agitation and violence. Inpatient DSM-V Dx: R41.9 Merits Inpatient Hospitalization: No Problem List - MHU Problems Type of Problem: Attitude and Relatedness Status of Problem: Resolved Plan - Treatment Plan Treatment Plan: The patient was readmitted to the hospital and her quetiapine was changed from 25mg PO BID to 50mg PO BID. She appears a little better today. Psychiatry will continue to follow. Continued Medication Management: Different Medication Medications: Current Medications Acetaminophen (Tylenol Tab*) 650 mg PO TID [facility] Last Admin: 03/27/18 14:36 Dose: Not Given Atorvastatin Calcium (Lipitor*) 40 mg PO DAILY [facility] Last Admin: 03/27/18 09:15 Dose: 40 mg Enoxaparin Sodium (Lovenox(*)) 60 mg SUBCUT Q24H [facility] Last Admin: 03/26/18 21:00 Dose: 60 mg Famotidine (Pepcid Tab*) 20 mg PO DAILY [facility] Last Admin: 03/27/18 09:15 Dose: 20 mg Ferrous Gluconate (Fergon Tab*) 324 mg PO BEDTIME [facility] Last Admin: 03/26/18 20:57 Dose: 324 mg Furosemide (Lasix Tab*) 20 mg PO DAILY [facility] Last Admin: 03/27/18 09:15 Dose: 20 mg Levothyroxine Sodium (Synthroid Tab*) 50 mcg PO DAILY [facility] Last Admin: 03/27/18 09:44 Dose: 50 mcg Melatonin (Melatonin) 3 mg PO BEDTIME [facility]; Protocol Last Admin: 03/26/18 20:55 Dose: 3 mg Metoprolol Succinate (Toprol Xl Tab*) 50 mg PO BID [facility] Last Admin: 03/27/18 09:15 Dose: 50 mg Quetiapine Fumarate (Seroquel Tab*) 50 mg PO BID [facility] Last Admin: 03/27/18 09:16 Dose: 50 mg - Discharge Plan Discharge Plan: Outpatient Follow Up
[2018-03-27] MEDS: Melatonin 3 MG TAB PO SCH (21:13)
[2018-03-27] MEDS: Enoxaparin(*) 60 MG/0.6 ML SYR SUBCUT SCH (21:14)
[2018-03-27] MEDS: Ferrous Gluconate TAB* 324 MG TAB PO SCH (21:14)
[2018-03-28] MEDS: Levothyroxine TAB* 50 MCG TAB PO SCH (08:22)
[2018-03-28] MEDS: Furosemide TAB* 20 MG PO SCH (08:22)
[2018-03-28] MEDS: Metoprolol Succinate XL TAB* 50 MG PO SCH ×2 (08:22→22:01)
[2018-03-28] MEDS: Famotidine TAB* 20 MG PO SCH (08:22)
[2018-03-28] MEDS: Atorvastatin* 40 MG TAB PO SCH (08:23)
[2018-03-28] MEDS: Acetaminophen TAB* 325 MG PO SCH ×3 (08:23→22:01)
[2018-03-28] MEDS: QUEtiapine TAB* 25 MG PO SCH ×2 (08:23→22:02)
[2018-03-28] MEDS ORDERED: Haloperidol INJ IV/IM* 5 MG/ML AMP IM ONE (09:50)
[2018-03-28] MEDS: Melatonin 3 MG TAB PO SCH (22:01)
[2018-03-28] MEDS: Ferrous Gluconate TAB* 324 MG TAB PO SCH (22:02)
[2018-03-28] MEDS: Enoxaparin(*) 60 MG/0.6 ML SYR SUBCUT SCH (22:03)
[2018-03-29] MEDS: Metoprolol Succinate XL TAB* 50 MG PO SCH ×2 (10:24→21:25)
[2018-03-29] MEDS: Acetaminophen TAB* 325 MG PO SCH ×3 (10:24→21:30)
[2018-03-29] MEDS: Atorvastatin* 40 MG TAB PO SCH (10:24)
[2018-03-29] MEDS: Famotidine TAB* 20 MG PO SCH (10:24)
[2018-03-29] MEDS: Furosemide TAB* 20 MG PO SCH (10:24)
[2018-03-29] MEDS: QUEtiapine TAB* 25 MG PO SCH ×2 (10:25→21:25)
[2018-03-29] MEDS: Levothyroxine TAB* 50 MCG TAB PO SCH (10:25)
--- NOTE | 2018-03-29 10:50 | PN ---
Subjective Date of Service: 03/29/18 Interval History: HOSPITALIST PROGRESS NOTE Patient was a little agitated yesterday morning and responded to Haldol. Now has been calm and cooperative. Family History: Unchanged from Admission Social History: Unchanged from Admission Past Medical History: Unchanged from Admission Objective Active Medications: Acetaminophen (Tylenol Tab*) 650 mg PO TID [facility] Last Admin: 03/29/18 10:24 Dose: 650 mg Atorvastatin Calcium (Lipitor*) 40 mg PO DAILY [facility] Last Admin: 03/29/18 10:24 Dose: 40 mg Enoxaparin Sodium (Lovenox(*)) 60 mg SUBCUT Q24H [facility] Last Admin: 03/28/18 22:03 Dose: 60 mg Famotidine (Pepcid Tab*) 20 mg PO DAILY [facility] Last Admin: 03/29/18 10:24 Dose: 20 mg Ferrous Gluconate (Fergon Tab*) 324 mg PO BEDTIME [facility] Last Admin: 03/28/18 22:02 Dose: 324 mg Furosemide (Lasix Tab*) 20 mg PO DAILY [facility] Last Admin: 03/29/18 10:24 Dose: 20 mg Levothyroxine Sodium (Synthroid Tab*) 50 mcg PO DAILY [facility] Last Admin: 03/29/18 10:25 Dose: 50 mcg Melatonin (Melatonin) 3 mg PO BEDTIME [facility]; Protocol Last Admin: 03/28/18 22:01 Dose: 3 mg Metoprolol Succinate (Toprol Xl Tab*) 50 mg PO BID [facility] Last Admin: 03/29/18 10:24 Dose: 50 mg Quetiapine Fumarate (Seroquel Tab*) 50 mg PO BID [facility] Last Admin: 03/29/18 10:25 Dose: 50 mg Vital Signs - 8 hr 03/29/18 03/29/18 03:56 05:59 Temperature 96.9 F 97.7 F Pulse Rate 75 Respiratory 18 Rate Blood Pressure 149/80 160/88 (mmHg) O2 Sat by Pulse 99 100 Oximetry Oxygen Devices in Use Now: None Appearance: Elderly lady sitting up in a chair in NAD. 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 - Patient Problems (1) Agitated Comment: - Dementia with behavioral disturbance - Psych input appreciated - doing better with Seroquel 50 mg QHS. (2) CKD (chronic kidney disease) stage 3, GFR 30-59 ml/min Comment: - At baseline. (3) Chronic diastolic CHF (congestive heart failure) Comment: - Stable. - Furosemide lower dose as creatinine was trending up. (4) Paroxysmal A-fib Comment: - Continue metoprolol, digoxin, and Eliquis. - Dr Gabriel Singer (Stonemason Helper at [place]) note reviewed - patient has h/ o peripheral arterial disease s/p femoral stents, with stenosis of left common and left external iliac arteries, developed left basilic vein DVT while on Eliquis, and has Afib. His impression is the patient may have antiphospholipid antibody syndrome and as she failed Warfarin and Eliquis in the past, he would recommend termite treater helper anticoagulation with Lovenox 1mg/kg/day (renal dose) termite treater helper, as she is at great risk for further clots. (5) Hypothyroidism Comment: - TSH 12 and Free T3 1.9 - home dose of Levothyroxine was increased from 25 to 50mcg. - Will need TFTs in 4 weeks. (6) DVT prophylaxis Comment: - Eliquis. (7) DNR (do not resuscitate) Status and Disposition: Long Term care, awaiting placement.
[2018-03-29] MEDS ORDERED: Haloperidol INJ IV/IM* 5 MG/ML AMP IM ONE (14:38)
[2018-03-29] MEDS: Ferrous Gluconate TAB* 324 MG TAB PO SCH ×2 (21:25→21:31)
[2018-03-29] MEDS: Enoxaparin(*) 60 MG/0.6 ML SYR SUBCUT SCH (21:25)
[2018-03-29] MEDS: Melatonin 3 MG TAB PO SCH (21:25)
[2018-03-30 06:11] LABS: Hematocrit 44 % (35-47); Mean Corpuscular HGB Conc 32 g/dl (31-36); Mean Corpuscular Hemoglobin 32 pg (27-31); Mean Corpuscular Volume 99 fL (80-97); Mean Platelet Volume 9.1 um3 (7.4-10.4); Platelet Count 120 10^3/ul (150-450); Red Blood Count 4.43 10^6/ul (4.00-5.40); Red Cell Distribution Width 19 % (10.5-15); White Blood Count 5.5 10^3/ul (3.5-10.8)
[2018-03-30 06:20] LABS: ABS Neutrophils 3.3 10^3/ul (1.5-7.7)
[2018-03-30 06:27] LABS: EGFR Non-African American 43.2 (>60)
[2018-03-30 06:42] LABS: ABS Basophils 0 10^3/ul (0-0.2); ABS Eosinophils 0.2 10^3/ul (0-0.6); ABS Lymphocytes 0.8 10^3/ul (1.0-4.8); ABS Nucleated RBC 0 10^3/ul; Lymphocyte % 14.6 % (25-47); Nucleated Red Blood Cells % 0.1
[2018-03-30] MEDS: Atorvastatin* 40 MG TAB PO SCH (08:23)
[2018-03-30] MEDS: Furosemide TAB* 20 MG PO SCH (08:23)
[2018-03-30] MEDS: Acetaminophen TAB* 325 MG PO SCH ×3 (08:23→21:26)
[2018-03-30] MEDS: Levothyroxine TAB* 50 MCG TAB PO SCH (08:23)
[2018-03-30] MEDS: Metoprolol Succinate XL TAB* 50 MG PO SCH ×2 (08:23→21:26)
[2018-03-30] MEDS: QUEtiapine TAB* 25 MG PO SCH ×2 (08:23→21:26)
[2018-03-30] MEDS: Famotidine TAB* 20 MG PO SCH (08:23)
--- NOTE | 2018-03-30 11:45 | CONSULT ---
Identification - Patient Identification Reason for Psychiatric Consultation: Violent Behavior -: Patient is a 87 year old, F admitted on 03/19/18. - MHU Identification Employment Status: Disabled Hx Psychiatric Hospitalization: No History - Objective HPI: Irlanda had a few behavioral outbursts over the weekend, and did need prn administration of haldol on two occasions. Today, she is calm and cooperative, albeit confused. Exam Appearance: Thin Framed Hygiene: Normal Grooming: Fairly Well Kept Psychomotor Activities: Normal Exhibits Abnormal Movement: No Attitude and Relatedness: Superficially Cooperative Eye Contact: Poor - Speech Quality: Unpressured Latencies: Long Quantity: Terse Patient's Decription of Mood: "Okay" Observed Affect: Fair Affect Consistent with: Euthymia Patient's Thought Process: Disorganized, Impoverished Thought Content: No Passive Wish, No Suicidal Planning, No Homicidal Ideation, No Paranoid Ideation Experiencing Hallucinations: No, Sensorium is Clear Type of Hallucinations: Visual: No, Auditory: No, Command: No Level of Consciousness: Alert Orientation: No Intact, No Orientated to Time, No Orientated to Place, No Orientated to Person Impulse Control: Poor Insight and Judgement: Impaired Impression - Impression Clinical Impression: 87 y.o. , white female with a history of dementia returns to the hospital one following most recent discharge with continued symptoms of behavioral agitation and violence. Inpatient DSM-V Dx: R41.9 Merits Inpatient Hospitalization: No Problem List - MHU Problems Type of Problem: Impulse Control Status of Problem: Active Plan - Treatment Plan Treatment Plan: The patient continues to behaviorally decompensate at times. Her quetiapine was increased from 25mg PO BID to 50mg PO BID and she appears to be tolerating this well. She is pending placement in a memory care facility. Psychiatry will continue to follow. Continued Medication Management: Continue Outpt Medication Medications: Current Medications Acetaminophen (Tylenol Tab*) 650 mg PO TID [facility] Last Admin: 03/30/18 08:23 Dose: Not Given Atorvastatin Calcium (Lipitor*) 40 mg PO DAILY [facility] Last Admin: 03/30/18 08:23 Dose: 40 mg Enoxaparin Sodium (Lovenox(*)) 60 mg SUBCUT Q24H [facility] Last Admin: 03/29/18 21:25 Dose: 60 mg Famotidine (Pepcid Tab*) 20 mg PO DAILY [facility] Last Admin: 03/30/18 08:23 Dose: 20 mg Ferrous Gluconate (Fergon Tab*) 324 mg PO BEDTIME [facility] Last Admin: 03/29/18 21:31 Dose: Not Given Furosemide (Lasix Tab*) 20 mg PO DAILY [facility] Last Admin: 03/30/18 08:23 Dose: 20 mg Levothyroxine Sodium (Synthroid Tab*) 50 mcg PO DAILY [facility] Last Admin: 03/30/18 08:23 Dose: 50 mcg Melatonin (Melatonin) 3 mg PO BEDTIME [facility]; Protocol Last Admin: 03/29/18 21:25 Dose: 3 mg Metoprolol Succinate (Toprol Xl Tab*) 50 mg PO BID [facility] Last Admin: 03/30/18 08:23 Dose: 50 mg Quetiapine Fumarate (Seroquel Tab*) 50 mg PO BID [facility] Last Admin: 03/30/18 08:23 Dose: 50 mg
[2018-03-30] MEDS: Enoxaparin(*) 60 MG/0.6 ML SYR SUBCUT SCH (21:25)
[2018-03-30] MEDS: Ferrous Gluconate TAB* 324 MG TAB PO SCH (21:26)
[2018-03-30] MEDS: Melatonin 3 MG TAB PO SCH (22:12)
[2018-03-31 07:59] LABS: ABS Basophils 0 10^3/ul (0-0.2); ABS Eosinophils 0.2 10^3/ul (0-0.6); ABS Lymphocytes 0.7 10^3/ul (1.0-4.8); ABS Monocytes 0.6 10^3/ul (0-0.8); ABS Neutrophils 3.3 10^3/ul (1.5-7.7); ABS Nucleated RBC 0 10^3/ul; Hematocrit 44 % (35-47); Hemoglobin 14.1 g/dl (12.0-16.0); Lymphocyte % 15.1 % (25-47); Mean Corpuscular HGB Conc 32 g/dl (31-36); Mean Corpuscular Hemoglobin 32 pg (27-31); Mean Corpuscular Volume 98 fL (80-97); Mean Platelet Volume 8.8 um3 (7.4-10.4); Nucleated Red Blood Cells % 0.1; Platelet Count 130 10^3/ul (150-450); Red Blood Count 4.48 10^6/ul (4.00-5.40); Red Cell Distribution Width 19 % (10.5-15); White Blood Count 4.8 10^3/ul (3.5-10.8)
[2018-03-31] MEDS: Levothyroxine TAB* 50 MCG TAB PO SCH (09:45)
[2018-03-31] MEDS: QUEtiapine TAB* 25 MG PO SCH (09:45)
[2018-03-31] MEDS: Famotidine TAB* 20 MG PO SCH (09:46)
[2018-03-31] MEDS: Atorvastatin* 40 MG TAB PO SCH (09:46)
[2018-03-31] MEDS: Metoprolol Succinate XL TAB* 50 MG PO SCH (09:46)
[2018-03-31] MEDS: Furosemide TAB* 20 MG PO SCH (09:46)
[2018-03-31] MEDS: Acetaminophen TAB* 325 MG PO SCH ×2 (09:47→13:32)
--- NOTE | 2018-03-31 13:53 | CONSULT ---
Identification - Patient Identification Reason for Psychiatric Consultation: Violent Behavior -: Patient is a 87 year old, F admitted on 03/19/18. - MHU Identification Employment Status: Disabled Hx Psychiatric Hospitalization: Yes History - Objective HPI: Irlanda is pleasant and cooperative and having a good day so far today per [facility] nursing staff. She has been accepted at the geriatric psychiatric facility in [place], [place] for acute inpatient treatment, and also by a senior care facility in [place], [place] for placement thereafter. She is tolerating her medications well. Exam Appearance: Thin Framed Hygiene: Normal Grooming: Fairly Well Kept Psychomotor Activities: Normal Exhibits Abnormal Movement: No Attitude and Relatedness: Superficially Cooperative Eye Contact: Poor - Speech Quality: Unpressured Latencies: Long Quantity: Terse Patient's Decription of Mood: "Okay" Observed Affect: Fair Affect Consistent with: Euthymia Patient's Thought Process: Disorganized, Impoverished Thought Content: No Passive Wish, No Suicidal Planning, No Homicidal Ideation, No Paranoid Ideation Experiencing Hallucinations: No, Sensorium is Clear Type of Hallucinations: Visual: No, Auditory: No, Command: No Level of Consciousness: Alert Orientation: No Intact, No Orientated to Time, No Orientated to Place, No Orientated to Person Impulse Control: Poor Insight and Judgement: Impaired Impression - Impression Clinical Impression: 87 y.o. , white female with a history of dementia returns to the hospital one following most recent discharge with continued symptoms of behavioral agitation and violence. Inpatient DSM-V Dx: R41.9 Merits Inpatient Hospitalization: Yes Problem List - MHU Problems Type of Problem: Impulse Control Status of Problem: Active Plan - Treatment Plan Treatment Plan: The patient continues to behaviorally decompensate at times. Her quetiapine was increased from 25mg PO BID to 50mg PO BID and she appears to be tolerating this well. She is pending transfer to [place], [place] today for geriatric psych inpatient care. Psychiatry is signing off. Continued Medication Management: Start Medication Medications: Current Medications Acetaminophen (Tylenol Tab*) 650 mg PO TID [facility] Last Admin: 03/31/18 13:32 Dose: Not Given Atorvastatin Calcium (Lipitor*) 40 mg PO DAILY [facility] Last Admin: 03/31/18 09:46 Dose: 40 mg Enoxaparin Sodium (Lovenox(*)) 60 mg SUBCUT Q24H [facility] Last Admin: 03/30/18 21:25 Dose: 60 mg Famotidine (Pepcid Tab*) 20 mg PO DAILY [facility] Last Admin: 03/31/18 09:46 Dose: 20 mg Ferrous Gluconate (Fergon Tab*) 324 mg PO BEDTIME [facility] Last Admin: 03/30/18 21:26 Dose: 324 mg Furosemide (Lasix Tab*) 20 mg PO DAILY [facility] Last Admin: 03/31/18 09:46 Dose: 20 mg Levothyroxine Sodium (Synthroid Tab*) 50 mcg PO DAILY [facility] Last Admin: 03/31/18 09:45 Dose: 50 mcg Melatonin (Melatonin) 3 mg PO BEDTIME [facility]; Protocol Last Admin: 03/30/18 22:12 Dose: 3 mg Metoprolol Succinate (Toprol Xl Tab*) 50 mg PO BID [facility] Last Admin: 03/31/18 09:46 Dose: 50 mg Quetiapine Fumarate (Seroquel Tab*) 50 mg PO BID [facility] Last Admin: 03/31/18 09:45 Dose: 50 mg - Discharge Plan Discharge Plan: Inpatient Hospitalization
--- NOTE | 2018-03-31 14:08 | RAD ---
HISTORY: CHF COMPARISONS: March 04, 2016 , CT dated February 18, 2018 VIEWS: 1: frontal portable view of the chest at 1:50 PM FINDINGS: LINES AND TUBES: A left-sided pacemaker is noted. CARDIOMEDIASTINAL SILHOUETTE: The cardiac silhouette is enlarged. The cardiomediastinal silhouette is otherwise normal for portable technique. PLEURA: There are small bilateral pleural effusions. LUNG PARENCHYMA: There is hyperinflation with prominence of the central pulmonary vasculature. There is confluent alveolar opacification of the lower lungs bilaterally. There is stable nodularity of the right upper lung. ABDOMEN: The upper abdomen is clear. There is no subphrenic gas. BONES AND SOFT TISSUES: The patient is status post median sternotomy. IMPRESSION: 1. CARDIOMEGALY. 2. HYPERINFLATION. 3. PULMONARY VASCULAR CONGESTION. 4. BIBASILAR ATELECTASIS VERSUS CONSOLIDATION. 5. SMALL BILATERAL PLEURAL EFFUSIONS. 6. STABLE NODULARITY OF THE RIGHT UPPER LUNG.
[2018-03-31 14:25] VITALS: BP 159/80
--- NOTE | 2018-03-31 15:50 | DS ---
CC: Dr. Wilbert Jones; Dr. Turner; with the patient upon her transfer to the [facility] at [facility]. DISCHARGE SUMMARY: DATE OF ADMISSION: 03/19/18 DATE OF DISCHARGE: 03/31/18 PRIMARY CARE PROVIDER: Dr. Wilbert Jones. CHIEF CONSULTING PSYCHIATRIST: Dr. Turner. DISCHARGE DIAGNOSIS: Dementia with behavioral disturbance. SECONDARY DIAGNOSES: 1. Coronary artery disease status post myocardial infarction, status post coronary artery bypass grafting.. 2. Left upper extremity deep vein thrombosis/pulmonary embolism, on Eliquis. 3. Diastolic congestive heart failure. 4. Paroxysmal atrial fibrillation. 5. Chronic kidney disease stage 3. 6. Hypertension. 7. Hyperlipidemia. 8. Hypothyroidism. 9. Hypercoagulable state (possible antiphospholipid syndrome). MEDICATIONS: At the time of transfer: 1. Acetaminophen 650 mg p.o. t.i.d. 2. Atorvastatin 40 mg p.o. daily. 3. Digoxin 0.125 mg p.o. every other day. 4. Lovenox 60 mg subcutaneously daily. 5. Famotidine 20 mg daily. 6. Ferrous gluconate 325 mg p.o. at bedtime. 7. Furosemide 40 mg p.o. daily. 8. Levothyroxine 50 mcg p.o. daily. 9. Melatonin 3 mg p.o. at bedtime. 10. Metoprolol succinate 50 mg p.o. b.i.d. 11. Potassium chloride 20 mEq b.i.d. 12. Seroquel 50 mg p.o. b.i.d. HOSPITAL COURSE: Mrs. Braxton is an 87-year-old lady with a past medical history as stated above that had admission to [facility] and had been discharged to [facility] on 03/04/18. When she arrived at that facility, the patient became severely combative and was sent immediately to our emergency room for evaluation. She was admitted from 03/04/18 to and at that point, her Seroquel was increased to 25 mg p.o. twice a day. The patient was discharged back to [facility] and on 03/19/18, she was sent to our emergency room again with confusion and aggressive behavior and at that point, it was decided that [facility] will not be able to care for her any longer. She was admitted as long-term care and during her hospital stay she was also followed by Psychiatry (Dr. Turner) who increased her Seroquel to 50 mg p.o. b.i.d. The patient appeared to be tolerating it well, but she will still have outburst of agitation requiring Haldol intramuscularly. The patient was thought to benefit from admission to a geriatric psychiatric hospital and she was offered a bed at [facility]. She is stable to be discharged today. Regarding her medical issues, her congestive heart failure is stable at this time, but she had multiple admissions to [facility] due to it. She is on furosemide and her renal function, she should be monitored. Last creatinine prior to discharge is 1.1. The patient also has a history of atrial fibrillation. Her rate is controlled and her digoxin level was at the upper limit at 2.0. Her digoxin had been held and is now resumed, but her digoxin level should continue to be monitored as an outpatient. Regarding her anticoagulation, there was some question as to why the patient had been discharged from [facility] on Lovenox. After reviewing records from Dr. Gabriel Singer, needle loom setter at [facility], it was noted that the patient has a history of peripheral arterial disease with femoral stents with stenosis of the left common and left external iliac arteries. She developed left basilic vein DVT while on Eliquis and failed warfarin in the past. His impression is that the patient probably has antiphospholipid antibody syndrome and his recommendation was for long- term anticoagulation with Lovenox 1 mg/kg/day ( renally dosed), as he thinks she is at great risk for further clots. On admission, the patient was also found to have an elevated TSH at 12 with a low free T3 of 1.9. Her levothyroxine was increased from 25 to 50 and she will need repeat TFTs around 04/22/18, to see if further adjustments are necessary. The patient was also noted to have mild thrombocytopenia and that needs to be monitored as an outpatient in the setting of lifelong anticoagulation with Lovenox. Last platelet count on the day of discharge is 130. PHYSICAL EXAMINATION: Vital Signs: Temperature 97.6, heart rate is 61, respiratory rate is 16, oxygen saturation 96% on room air, blood pressure is 151 /74. General: The patient is an elderly lady sitting up in a recliner, in no acute distress. CVS: Normal S1, S2. Regular rate and rhythm with a systolic murmur. Chest: Breath sounds bilaterally with no added sounds. Neuro: She is alert and oriented x1 to self only, able to move all 4 extremities. Skin: Lower extremities have chronic skin changes with mild left extremity edema. DIET: Regular diet with mechanical ground texture. ACTIVITIES: As tolerated. DISPOSITION: To the [facility] health unit at [facility]. STATUS WHILE IN THE HOSPITAL: [facility]. Please keep in mind this is a summarized version of this patient's hospital stay. If you need more information, please feel free to call me at [phone] or please obtain the full medical records. TIME SPENT: Approximately 45 minutes was spent to complete this discharge. [id number]/JESSICA #: [id number] ELIEL
== END 2018-03-31 17:30 | DRG 884 ==
LOC: ED 16:11 → MED 03-19 00:24
PROVIDERS: ADMIT Hospitalist; ATTEND Internal Medicine
DX: F03.91 Unspecified dementia, unspecified severity, with behavioral disturbance (principal); I13.0 Hypertensive heart and chronic kidney disease with heart failure and stage 1 through stage 4 chronic kidney disease, or unspecified chronic kidney disease; I50.32 Chronic diastolic (congestive) heart failure; D68.61 Antiphospholipid syndrome; I48.0 Paroxysmal atrial fibrillation; D69.6 Thrombocytopenia, unspecified; N18.3 Chronic kidney disease, stage 3 (moderate); Z95.1 Presence of aortocoronary bypass graft; Z66 Do not resuscitate; E78.5 Hyperlipidemia, unspecified; I25.10 Atherosclerotic heart disease of native coronary artery without angina pectoris; E03.9 Hypothyroidism, unspecified; R41.9 Unspecified symptoms and signs involving cognitive functions and awareness; Z75.1 Person awaiting admission to adequate facility elsewhere; Z86.718 Personal history of other venous thrombosis and embolism; Z79.01 Long term (current) use of anticoagulants; I25.2 Old myocardial infarction; Z86.711 Personal history of pulmonary embolism; Z79.899 Other long term (current) drug therapy; Z88.6 Allergy status to analgesic agent; Z88.5 Allergy status to narcotic agent; Z88.8 Allergy status to other drugs, medicaments and biological substances; Z95.810 Presence of automatic (implantable) cardiac defibrillator; Z87.891 Personal history of nicotine dependence; Z82.49 Family history of ischemic heart disease and other diseases of the circulatory system
CPT/HCPCS: 36415; 36600; 70450; 71045; 80048; 80053; 80162; 80307; 80320; 80329; 81003; 81015; 82140; 82607; 82803; 83880; 84145; 84439; 84443; 84481; 85025; 85060; 87086; 90686; 93005; 99284; A9270-GY; G0480; G8987-GO-CJ; G8988-GO-CJ; G8989-GO-CJ; J1630; J1650; J3486